=== PATIENT | male | born 1980 | race Caucasian/White ===

== ENCOUNTER → 2018-01-09 09:29 | Outpatient (CLI) | payer OTHER, SELFPAY ==
[2018-01-09 10:34] LABS: Absolute Lymphocyte Count 1.04 X10^3/ul (0.83-4.51); Absolute Neutrophil Count 3.4 X10^3/uL (2.0-7.7); Basophil# 0.02 X10^3/uL; Basophil% 0.4 % (0-1); Eosinophil# 0.07 X10^3/uL; Eosinophils% 1.5 % (0-5); Hematocrit 45.5 % (40-54); Hemoglobin 15.9 g/dl (13.0-16.5); Lymphocyte # 1.04 X10^3/ul (4.0); Lymphocyte % 21.9 % (19-41); Mean Corp Hgb Conc 34.9 g/gl (32-36); Mean Corpuscular Hgb 31.2 pg (27.0-32.0); Mean Corpuscular Volume 89.2 fL (80-94); Monocyte# 0.23 X10^3/uL; Monocyte% 4.9 % (0-10); Neutrophil # 3.37 X10^3/uL (2.7-7.7); Neutrophil % 71.1 % (47-70); Platelet Count 173 K/mm3 (150-450); RBC Distribution Width CV 12.1 % (11.6-14.6); White Blood Count 4.7 K/mm3 (4.4-11.0)
[2018-01-09 10:36] LABS: POSITIVE COUNT NO; POSITIVE DIFFERENTIAL NO; POSITIVE MORPHOLOGY NO
[2018-01-09 11:09] LABS: ALB/GLOB Ratio 1.1 RATIO (0.9-2.4); AST(SGOT) 37 U/L (15-37); Alanine Aminotransfer ALT/SGPT 58 U/L (16-61); Albumin, Serum 4.1 g/dL (3.2-5.0); Alkaline Phosphatase 58 U/L (45-117); Anion Gap 9 (5-15); BUN 14 mg/dL (7-18); BUN/Creat Ratio 13.6 RATIO (10-20); Calcium,Total 8.7 mg/dL (8.5-10.1); Chloride 107 mmol/L (98-107); Cholesterol 214 mg/dL (200); Creatinine, Serum 1.03 mg/dL (0.70-1.30); EST Glomerular Filtration Rate 87 mL/min (>60); Est Glom Filt Rate - Afr Amer 106 mL/min (>60); Globulin 3.6 g/dL (2.2-4.2); Glucose 87 mg/dL (74-106); High Density Lipoprotein 40 mg/dL; Potassium 4.1 mmol/L (3.5-5.1); Protein, Total 7.7 g/dL (6.4-8.2); Sodium Level 141 mmol/L (136-145); Thyroid Stim Hormone (TSH) 0.96 uIU/mL (0.358-3.74); Triglycerides 117 mg/dL; Very Low Density Lipoprotein 23 mg/dL (5-40)
[2018-01-13 12:08] LABS: Testosterone, Free 17.78 (5.00-21.00)
[2018-01-13 12:41] LABS: Testosterone, Total 635 ng/dL (264-916)
== END ==
PROVIDERS: Family Provider Preventive Medicine Occupational Medicine; PCP Preventive Medicine Occupational Medicine; Visit Provider Preventive Medicine Occupational Medicine
DX: R53.83 Other fatigue (principal); Z13.220 Encounter for screening for lipoid disorders; R68.82 Decreased libido
CPT/HCPCS: 36415; 80053; 80061; 84402; 84403; 84443; 85025

== ENCOUNTER 2019-11-18 12:22 | Emergency (ER) | payer OTHER, SELFPAY ==
[2019-11-18 12:23] VITALS: BP 161/96; PULSE 87; RESP 13; TEMP 36.9; O2SAT 96; BMI 30.4
--- NOTE | 2019-11-18 12:31 | RAD_ITS ---
STUDY: X-RAY CHEST REASON FOR EXAM: Male, 39 years old. CHEST PAINS TECHNIQUE: Single AP portable view of the chest. COMPARISON: None. FINDINGS: There is an ill-defined nodule in the left lung base measures approximately 2 cm for which further evaluation by CT scan may be warranted to exclude a neoplasm. There is no demonstrated pleural abnormality. Normal size heart. Normal mediastinum and sally. Normal visualized pulmonary arteries. Normal visualized aortic arch and descending thoracic aorta. Normal visualized thoracic spine. Normal visualized ribs, clavicles, and shoulders. There is no demonstrated abnormality of the visualized soft tissue structures of the upper abdomen. RAD/Chest 1 View (Portable) IMPRESSION: There is an ill-defined nodule in the left lung base measures approximately 2 cm for which further evaluation by CT scan may be warranted to exclude a neoplasm. Electronically Signed: Gagandeep Barfield, at 13:26 EST Tel , Service support ,
--- NOTE | 2019-11-18 12:31 | EKG12_ITS ---
Test Reason : CP Blood Pressure : / mmHG Vent. Rate : 096 BPM Atrial Rate : 096 BPM P-R Int : 124 ms QRS Dur : 092 ms QT Int : 354 ms P-R-T Axes : 041 -01 022 degrees QTc Int : 447 ms Normal sinus rhythm Nonspecific T wave abnormality Abnormal ECG Confirmed by NEERU RENTERIA ([id number]), associate editor SUJATHA ROSE ([id number] on 11/22/2019 2:52:51 PM Referred By: HENRY
--- NOTE | 2019-11-18 12:32 | ED.DCSUM_ITS ---
- ER Visit Summary Date of Service: 11/18/19 Chief Complaint: Chest pain History of Present Illness: The patient is a 39 M who presents with chest pain that has been waxing and waning over the past 2 days. Patient describes it as aching. Patient states pain is over the left chest. Patient admits to some generalized weakness and lightheadedness. Patient admits to some shortness of breath with this. Patient also admits to nausea but denies any vomiting. Patient denies any diaphoresis. Patient denies any cough or fevers. Patient denies any cardiac or PE risk factors. Physical Examination: Vital signs are stable. Patient is afebrile. Patient is in no acute distress. Oral mucosa is pink and moist. Neck is supple. Trachea is midline. There is no JVD noted. Heart was regular rate and rhythm. Lungs are clear and equal bilateral. Abdomen is soft. Bowel sounds are normal. There is no tenderness. There is no guarding noted. Skin is warm dry. Cranial nerves II through XII are intact. There are no focal motor or sensory deficits noted. Extremities are intact. There is no calf tenderness or edema. Test Results: EKG shows AV normal sinus rhythm with a rate of 96. There are no acute ST or T wave changes. There are no prior EKGs available for comparison. CBC, basic metabolic profile, troponin were obtained were all within normal limits. PA and lateral chest x-ray was obtained. There is a left lung nodule noted measuring approximately [address] was recommended for further evaluation. CT scan of the chest was obtained. There is a calcified granuloma measuring 1.9 cm in the left lower lobe. This was interpreted by the radiologist. Emergency Department Course and Treatment: Patient was given aspirin and sublingual nitroglycerin. Patient was feeling better on reevaluation. Patient has a HEART score of 1. Patient was advised that this is low risk for acute cardiac event. Patient was instructed to follow-up with his primary care physician in 5 to 7 days for further evaluation of his chest pain. Patient understood and was agreeable with the plan. All questions were answered. Disposition: Discharge home Impression: Chest pain of uncertain etiology This note was generated with [employer] software. It may contain incorrect words, spelling, and punctuation that were not noted in review of the chart prior to signing ED Disposition - Plan for ED Patient: Disposition: Home or Assisted Living Diagnosis: Chest pain of uncertain etiology Instructions: CHEST PAIN, Uncertain Cause Referrals: Jovan Phillips DO [COURTESY STAFF PHYSICIAN] - 5-7 Days
[2019-11-18 12:35] VITALS: O2SAT 96
--- NOTE | 2019-11-18 12:40 | ED.RN ---
RN INTO ROOM FOR MEDICATIONS. PT REFUSING NITRO AT THIS TIME STATING PAIN IS ONLY 2/3. RN WILL CONTINUE TO MONITOR PATIENT.
[2019-11-18] MEDS: Aspirin 81 MG TAB.CHEW 324 MG PO (12:43)
[2019-11-18 12:46] LABS: Absolute Lymphocyte Count 2.04 X10^3/uL (0.83-4.51); Absolute Neutrophil Count 4.4 X10^3/uL (2.0-7.7); Basophil# 0.05 X10^3/uL; Basophil% 0.7 % (0-1); Eosinophil# 0.24 X10^3/uL; Eosinophils% 3.3 % (0-5); Hematocrit 45.6 % (40-54); Hemoglobin 16.5 g/dL (13.0-16.5); Lymphocyte # 2.04 X10^3/ul (4.0); Lymphocyte % 27.9 % (19-41); Mean Corp Hgb Conc 36.2 g/dL (32-36); Mean Corpuscular Volume 88.5 fL (80-94); Mean Platelet Vol. 10.9 fl (6.2-12.0); Monocyte# 0.55 X10^3/uL; Monocyte% 7.5 % (0-10); NRBC Flagged by Analyzer 0 % (0-5); Neutrophil # 4.38 X10^3/uL (2.7-7.7); Neutrophil % 59.9 % (47-70); Platelet Count 172 K/mm3 (150-450); RBC Distribution Width CV 11.6 % (11.6-14.6); RBC Distribution Width SD 37.4 fl (35.1-43.9); Red Blood Count 5.15 M/mm3 (4.6-6.2); White Blood Count 7.3 K/mm3 (4.4-11.0)
[2019-11-18 13:00] LABS: Anion Gap 7 (5-15); BUN 18 mg/dL (7-18); BUN/Creat Ratio 17.3 RATIO (10-20); Calcium,Total 9.3 mg/dL (8.5-10.1); Chloride 108 mmol/L (98-107); Creatinine, Serum 1.04 mg/dL (0.70-1.30); EST Glomerular Filtration Rate 85 mL/min (>60); Est Glom Filt Rate - Afr Amer 103 mL/min (>60); Estimated Creatinine Clearance 103.58 ml/min; Glucose 93 mg/dL (74-106); Potassium 3.8 mmol/L (3.5-5.1); Sodium Level 142 mmol/L (136-145)
[2019-11-18 13:51] VITALS: BP 138/85; PULSE 85; RESP 16; O2SAT 95
--- NOTE | 2019-11-18 14:00 | CT_ITS ---
STUDY: CT CHEST WITH CONTRAST REASON FOR EXAM: Male, 39 years old. Left-sided chest pain. RADIATION DOSAGE (If Supplied By Facility): CTDIvol = ( 15.96 ) mGy, DLP = ( 629.74 ) mGycm TECHNIQUE: Transaxial imaging was performed following intravenous administration of 100 ml of Isovue-300 contrast material. Coronal and sagittal reformatted images were created. Individualized dose optimization techniques were used for this CT. COMPARISON: None FINDINGS: There are no pulmonary infiltrates or pleural effusions. There is a 1.9 cm calcified granuloma in the left lower lobe. There are no additional pulmonary nodules. There is no pneumothorax. The heart and pericardium are within normal limits. There is no thoracic lymphadenopathy. There is no evidence of thoracic aortic aneurysm. Images through the upper abdomen demonstrate no significant abnormality. There are no destructive osseous lesions. CT/Chest WITH Contrast IMPRESSION: 1.9 cm calcified granuloma in the left lower lobe. Otherwise, unremarkable contrast-enhanced CT of the chest. Electronically Signed: Cam Curran, at 14:33 EST Tel , Service support ,
[2019-11-18 14:24] VITALS: BP 157/85; PULSE 84; RESP 17; O2SAT 96
[2019-11-18 15:12] VITALS: BP 153/87; PULSE 87; RESP 15; O2SAT 97
[2019-11-18 15:25] VITALS: BP 153/87; PULSE 82; RESP 14; O2SAT 96
--- NOTE | 2019-11-18 15:26 | ED.RN ---
IV DC'ED, CATHETER INTACT, SMALL GAUZE DRESSING PLACED. DISCHARGE INSTRUCTIONS GIVEN TO AND REVIEWED WITH PATIENT, PATIENT DENIES QUESTIONS OR CONCERNS AND VOICES UNDERSTANDING OF DISCHARGE INSTRUCTIONS. PT AMBULATES OUT OF ROOM WITHOUT DIFFICULTY.
== END 2019-11-18 15:27 | disposition home or self-care (01) ==
PROVIDERS: Emergency Provider Emergency Medicine; Family Provider Internal Medicine; PCP Internal Medicine
DX: R07.9 Chest pain, unspecified (principal)
CPT/HCPCS: 71045; 71260; 80048; 84484; 85025; 93005; 99285; Q9967; A4216

== ENCOUNTER → 2025-11-20 | Outpatient (CLI) | payer OTHER, SELFPAY ==
--- NOTE | 2025-11-20 07:20 | RAD_ITS ---
PROCEDURE: ELBOW MIN 3 VIEWS 11/20/2025 REASON FOR EXAM: Medial pain distal of elbow. S/p feeling pop when lifting cement block 6 days ago. TECHNIQUE: Procedure Code: RAD[place] Modality: DX Procedure: ELBOW MIN 3 VIEWS Laterality: Left COMPARISON: None. FINDINGS: BONES: No acute fracture or focal osseous lesion. JOINTS: No dislocation. The joint spaces are normal. No elbow joint effusion. SOFT TISSUES: The soft tissues are unremarkable. RAD/Elbow min 3 Views IMPRESSION: NO ACUTE FRACTURE OR DISLOCATION. Reading Location: [id number]
--- OUTSIDE RECORDS SUMMARY | 2025-11-20 07:20 | XMS RPT_ITS | CCD ---
Author Organization [facility] Care Team Providers Care Hris Manager Name Role Phone Lesli Weber MD Primary Care Provider [phone] Hao Washington DO Primary Care Provider Hao Washington DO Primary Care Provider Lesli Weber MD Primary Care Provider Antony HIGH RIGGER.Michelle VILLALOBOS Unavailable Kt HIGH RIGGER.April VILLALOBOS Unavailable [phone] ALLEGRA BLACKMAN Attending Unavailable HAO WASHINGTON Referring Unavailable HAO WASHINGTON Primary Care Unavailable MICHELLE ANTONY Referring UnavailHAO Bell Primary Care Unavailable MICHELLE ANTONY Attending Unavailabl e SELF Referring Unavailable HAO WASHINGTON Primary Care Unavailable ARMANDO GORDILLO Attending Unavailable HAO WASHINGTON Primary Care Unavailable ALLEGRA BLACKMAN Referring Unavailable HAO WASHINGTON Primary Care Unavailable Eloisa HIGH RIGGER.Cammie VILLALOBOS Unavailable Allergies Allergy Classification Reported Allergen(s) Allergy Type Date of Onset Reaction(s) Facility (20 sources) SUMAtriptan; Translations: [SUMATRIPTAN] Drug Allergy 01-23-2022 Myalgia [facility] Work Phone: Medications Current Medications Medication Drug Class(es) Dates Sig (Normalized) Sig (Original) buPROPion hydrochloride 75 mg oral tablet (20 sources) Aminoketone Start: 10-10-2024 End: 01-11-2026 take 1 tablet by mouth once daily buPROPion (WELLBUTRIN) 75 mg tablet Indications: LISBETH (generalized anxiety disorder) Take 1 tablet by mouth once daily. 90 tablet 3 01/16/2025 01/11/2026 Active Start: 12-07-2023 End: 10-10-2024 take 1 tablet by mouth once daily buPROPion SR (WELLBUTRIN SR) 150 mg 12 hr tablet Indications: LISBETH (generalized anxiety disorder) Take 1 tablet by mouth once daily. 90 tablet 3 06/21/2024 10/10/2024 Discontinued Start: 01-23-2022 End: 07-13-2023 take 1 tablet by mouth twice daily buPROPion SR (WELLBUTRIN SR) 150 mg 12 hr tablet Indications: LISBETH (generalized anxiety disorder) Take 1 tablet by mouth twice daily. 60 tablet 2 07/13/2023 Active Start: 05-16-2021 End: 11-13-2021 take 31-31.9 tablets by mouth twice daily buPROPion SR (WELLBUTRIN SR) 150 mg 12 hr tablet Indications: Class 1 obesity due to excess calories without serious comorbidity with body mass index (BMI) of 31.0 to 31.9 in adult , LISBETH (generalized anxiety disorder) Take 1 tablet by mouth twice daily. 60 tablet 1 09/09/2021 11/13/2021 Discontinued Comment on above: Take 1 tablet by tatiana th twice daily. Take 1 tablet by tatiana th once daily. esomeprazole 20 mg delayed release oral capsule (20 sources) Proton Pump Inhibitor Start: 12-07-19 End: 01-16-20 take 1 capsule by mouth once daily before breakfast esomeprazole (NEXIUM) 20 mg capsule Indications: Gastroesophageal reflux disease with esophagitis, unspecified whether hemorrhage Take 1 capsule by mouth daily before breakfast. 1/2 hr before meal. 90 capsule 1 01/16/2025 Active Start: 04-17-2023 End: 08-28-2023 take 1 capsule by mouth once daily before breakfast esomeprazole (NEXIUM) 20 mg capsule Take 1 capsule by mouth daily before breakfast. 1/2 hr before meal. 90 capsule 1 08/28/2023 Active Start: 10-15-2022 take 1 capsule by mo uth once daily before breakfast esomeprazole (NEXIUM) 20 mg capsule Take 1 capsule by mouth daily before breakfast. 1/2 hr before meal. 90 capsule 1 10/15/2022 Active Start: 05-16-2021 End: 10-12-2022 take 1 capsule by mouth once daily before breakfast esomeprazole (NEXIUM) 20 mg capsule Take 1 capsule by mouth daily before breakfast. 1/2 hr before meal. 90 capsule 2 05/16/2021 01/23/2022 Discontinued Comment on above: Take 1 capsule by mo uth daily before breakfast. 1/2 hr before meal. FLUoxetine 10 mg oral capsule (20 sources) Serotonin Reuptake Inhibitor Start: 10-10-2024 End: 01-11-2026 take 1 capsule by mouth once daily FLUoxetine (PROZAC) 10 mg capsule Indications: LISBETH (generalized anxiety disorder) Take 1 capsule by mouth once daily. 90 capsule 3 01/16/2025 01/11/2026 Active Start: 11-27-2023 End: 10-10-2024 take 1 capsule by mouth once daily FLUoxetine (PROZAC) 20 mg capsule Indications: LISBETH (generalized anxiety disorder) One pill by mouth daily. 90 capsule 1 05/03/2024 10/10/2024 Discontinued Start: 10-15-2022 End: 06-11-2023 take 1 capsule by mouth once daily FLUoxetine (PROZAC) 20 mg capsule Indications: LISBETH (generalized anxiety disorder) One pill by mouth daily. 90 capsule 1 06/11/2023 Active Start: 04-15-2022 End: 10-12-2022 take 1 capsule by mouth once daily FLUoxetine (PROZAC) 20 mg capsule Indications: LISBETH (generalized anxiety disorder) One pill by mouth daily. 90 capsule 1 04/15/2022 10/12/2022 Discontinued Start: 01-23-2022 End: 02-21-2022 take 1 capsule by mouth once daily FLUoxetine (PROZAC) 20 mg capsule Indications: LISBETH (generalized anxiety disorder) One pill by mouth daily. 30 capsule 1 01/23/2022 02/21/2022 Discontinued (Clinical Decision) Start: 09-09-2021 End: 11-27-2021 take 1 capsule by mouth once daily FLUoxetine (PROZAC) 10 mg capsule Indications: LISBETH (generalized anxiety disorder) One pill by mouth daily. 90 capsule 09/09/2021 11/27/2021 Discontinued Start: 10-29-2020 End: 07-02-2021 take 1 capsule by mouth once daily FLUoxetine (PROZAC) 10 mg capsule Indications: LISBETH (generalized anxiety disorder) One pill by mouth daily. 90 capsule 3 10/29/2020 07/02/2021 Discontinued Comment on above: One pill by mouth [facility] gabapentin 300 mg oral capsule (9 sources) Anti-epileptic Agent Start: 09-14-2024 End: 01-16-2025 take 1 capsule by mouth every twelve hours as needed gabapentin (NEURONTIN) 300 mg capsule Take 1 capsule by mouth two times a day as needed (migraine) for up to 30 days. 14 capsule 09/14/2024 01/16/2025 Discontinued (Patient chooses alternative therapy) Start: 08-23-2024 End: 09-22-2024 take 1 capsule by mouth every twelve hours as needed gabapentin (NEURONTIN) 100 mg capsule Take 1 capsule by mouth two times a day as needed (migraine) for up to 30 days. 14 capsule 08/23/2024 09/13/2024 Discontinued montelukast 10 mg oral tablet (20 sources) Leukotriene Receptor Antagonist Start: 09-05-2024 End: 01-16-2025 take 1 tablet by mouth once daily at bedtime montelukast (SINGULAIR) 10 mg tablet Take 1 tablet by mouth daily at bedtime. 90 tablet 1 01/16/2025 Active Start: 02-11-2024 End: 09-03-2024 take 1 tablet by mouth once daily at bedtime montelukast (SINGULAIR) 10 mg tablet Take 1 tablet by mouth daily at bedtime. 90 tablet 1 02/11/2024 09/03/2024 Discontinued Start: 10-15-2022 take 1 tablet by tatiana th once daily at bedtime montelukast (SINGULAIR) 10 mg tablet Take 1 tablet by mouth daily at bedtime. 90 tablet 1 10/15/2022 Active Start: 01-23-2022 End: 06-29-2022 take 1 tablet by mouth once daily at bedtime montelukast (SINGULAIR) 10 mg tablet Take 1 tablet by mouth daily at bedtime. 30 tablet 5 04/30/2022 Active Start: 10-25-2021 End: 11-27-2021 take 1 tablet by mouth once daily at bedtime montelukast (SINGULAIR) 10 mg tablet Indications: Cough Take 1 tablet by mouth daily at bedtime. 30 tablet 1 10/25/2021 11/27/2021 Discontinued Comment on above: Take 1 tablet by tatiana th daily at bedtime. tirzepatide (MOUNJARO) 5 mg/0.5 mL pen injector (9 sources) Start: 03-04-20 End: 04-03-20 inject 5 mg by subcutaneous injection every week tirzepatide (MOUNJARO) 5 mg/0.5 mL pen injector Inject 5 mg subcutaneously one time a week. 2 mL 1 03/04/2023 04/03/2023 Active Start: 12-10-2022 End: 03-04-2023 inject 5 mg by subcutaneous injection every week tirzepatide (MOUNJARO) 5 mg/0.5 mL pen injector Inject 5 mg subcutaneously one time a week. 2 mL 1 12/10/2022 03/04/2023 Discontinued Start: 12-10-2022 End: 01-09-2023 inject 5 mg by subcutaneous injection every week tirzepatide (MOUNJARO) 5 mg/0.5 mL pen injector Inject 5 mg subcutaneously one time a week. 2 mL 1 12/10/2022 01/09/2023 Active Comment on above: Inject 5 mg subcutan eously one time a week. tiZANidine 2 mg oral tablet (10 sources) Central alpha-2 Adrenergic Agonist Start: 08-23-20 End: 01-16-20 take 1 tablet by mouth every twenty-four hours as needed tiZANidine (ZANAFLEX) 2 mg tablet Take 1 tablet by mouth at bedtime as needed. 14 tablet 08/23/2024 01/16/2025 Discontinued topiramate 50 mg oral tablet (20 sources) Start: 07-18-20 End: 10-16-20 take 2 tablets by mouth once daily topiramate (TOPAMAX) 50 mg tablet Indications: Migraine headaches Take 2 tablets by mouth once daily 60 tablet 07/18/2025 10/16/2025 Active Start: 01-16-2025 End: 06-28-2025 take 2 tablets by mouth once daily topiramate (TOPAMAX) 50 mg tablet Indications: Migraine headaches Take 2 tablets by mouth once daily. 60 tablet 2 03/30/2025 06/28/2025 Active Start: 12-16-2024 End: 03-16-2025 take 2 tablets by mouth once daily topiramate (TOPAMAX) 25 mg tablet Take 2 tablets by mouth once daily. 60 tablet 2 12/16/2024 01/16/2025 Discontinued Start: 12-12-2024 End: 12-16-2024 take 3 tablets by mouth once daily topiramate (TOPAMAX) 25 mg tablet Take 3 tablets by mouth once daily. 90 tablet 2 12/12/2024 12/16/2024 Discontinued Start: 08-23-2024 End: 11-21-2024 take 2 tablets by mouth once daily at bedtime topiramate (TOPAMAX) 25 mg tablet TAKE 2 TABLETS BY MOUTH ONCE DAILY AT BEDTIME 60 tablet 11/14/2024 Active Start: 02-17-2022 End: 11-12-2022 take 1 tablet by mouth twice daily topiramate (TOPAMAX) 25 mg tablet Take 1 tablet by mouth twice daily. 60 tablet 1 02/17/2022 11/12/2022 Discontinued Comment on above: Take 1 tablet by [facility] twice daily. Completed/Discontinued Medications Medication Drug Class(es) Dates Sig (Normalized) Sig (Original) cetirizine hydrochloride 10 mg oral tablet (2 sources) Histamine-1 Receptor Antagonist Start: 04-23-2020 End: 10-25-2021 take 1 tablet by mouth once daily cetirizine (ZYRTEC) 10 mg tablet Take 1 tablet by mouth once daily. 04/23/2020 10/25/2021 Discontinued (Course of therapy completed) cholecalciferol 0.05 mg oral capsule (20 sources) Vitamin D Start: 11-24-2019 End: 12-07-2023 take 1 capsule by mouth once daily Cholecalciferol, Vitamin D3, 50 mcg (2,000 unit) cap Indications: Vitamin D deficiency Take 1 capsule by mouth once daily. 30 capsule 5 11/24/2019 12/07/2023 Discontinued Comment on above: Take 1 capsule by mo [facility] once daily. fluticasone propionate 0.05 mg/actuat metered dose nasal spray (20 sources) Corticosteroid Start: 11-24-2019 End: 12-07-2023 take 2 spray(s) by mouth once daily fluticasone (FLONASE) 50 mcg/actuation nasal spray Indications: Dizziness Use 2 Sprays in each nostril once daily. Rinse mouth after use. 1 Bottle 3 11/24/2019 12/07/2023 Discontinued Comment on above: Use 2 Sprays in each nostril once daily. Rinse mouth after use. iv contrast (will be provided with radiology test) (1 source) Start: 11-08-2021 End: 11-09-2021 iv contrast (will be provided with radiology test) CT Chest W -Inject, intravenously, once for 1 dose.No IV access, insert saline lock prior to the beginning of sedation, infusion, injection of imaging exam. Discontinue saline lock post exam. If Pt. has a central line or IVAD, may access for administration according to line specific nursing protocol. Once exam is complete flush line and de-access according to line specific nursing protocol in the CT contrast administration guidelines link. 1 Each 0 11/08/2021 11/09/2021 Comment on above: CT Chest W -Inject, intravenously, once for 1 dose.No IV access, insert saline lock prior to the beginning of sedation, infusion, injection of imaging exam. Discontinue saline lock post exam. If Pt. has a central line or IVAD, may access for administration according to line specific nursing protocol. Once exam is complete flush line and de-access according to line specific nursing protocol in the CT contrast administration guidelines link. predniSONE 10 mg oral tablet (1 source) Start: 06-24-2021 End: 07-03-2021 predniSONE (DELTASONE) 10 mg tablet Take 4 tabs daily for 3 days, then 2 tabs daily for 3 days, then 1 tab daily for 3 days with food. 21 tablet 06/24/2021 07/03/2021 propranolol hydrochloride 60 mg oral tablet (15 sources) beta-Adrenergic Ellie Start: 01-10-2022 End: 11-12-2022 take 1 tablet by mouth once daily propranolol (INDERAL) 60 mg tablet Indications: Headaches Take 1 tablet by mouth once daily. 30 tablet 3 01/10/2022 11/12/2022 Discontinued Start: 10-25-2021 End: 01-06-2022 take 1 tablet by mouth once daily propranolol (INDERAL) 20 mg tablet Indications: Headaches Take 1 tablet by mouth once daily. Take one 20 mg tablet with 40 mg tablet to equal 60 mg daily 30 tablet 1 10/25/2021 01/06/2022 Discontinued Comment on above: Take 1 tablet by tatiana th once daily. Take 1 tablet by tatiana th once daily. Take one 20 mg tablet with 40 mg tablet to equal 60 mg daily SUMAtriptan 50 mg oral tablet (1 source) Serotonin-1b and Serotonin-1d Receptor Agonist Start: 09-24-20 End: 01-24-20 SUMAtriptan (IMITREX) 50 mg tablet Indications: Headaches Take on tablet at onset of headache. May repeat in 2 hours if needed once 27 tablet 1 09/24/2021 01/23/2022 Discontinued (Adverse Reaction) Comment on above: Take on tablet at on set of headache. May repeat in 2 hours if needed once tirzepatide (MOUNJARO) 2.5 mg/0.5 mL pen injector (2 sources) Start: 11-13-20 End: 11-26-19 inject 2.5 mg by subcutaneous injection every week tirzepatide (MOUNJARO) 2.5 mg/0.5 mL pen injector Inject 2.5 mg subcutaneously one time a week. 2 mL 1 11/13/2022 11/26/2022 Discontinued Start: 11-13-2022 End: 12-13-2022 inject 2.5 mg by subcutaneous injection every week tirzepatide (MOUNJARO) 2.5 mg/0.5 mL pen injector Inject 2.5 mg subcutaneously one time a week. 2 mL 1 11/13/2022 12/13/2022 Active Comment on above: Inject 2.5 mg subcut aneously one time a week. tirzepatide (MOUNJARO) 2.5 mg/0.5 mL pen injector (4 sources) Start: inject 2.5 mg by subcutaneous injection every week tirzepatide (MOUNJARO) 2.5 mg/0.5 mL pen injector Inject 2.5 mg subcutaneously one time a week. 2 mL 2 12/24/2022 Active Start: 12-24-2022 End: 01-23-2023 inject 2.5 mg by subcutaneous injection every week tirzepatide (MOUNJARO) 2.5 mg/0.5 mL pen injector Inject 2.5 mg subcutaneously one time a week. 2 mL 2 12/24/2022 01/23/2023 Active Comment on above: Inject 2.5 mg subcut aneously one time a week. ubrogepant 50 mg oral tablet (14 sources) Start: 02-18-20 End: 11-12-20 ubrogepant (UBRELVY) 50 mg tablet Take 1 tablet by mouth as needed. Take 1 tablet as needed for migraine. Can repeat in 2 hours if no relief. 8 tablet 1 02/17/2022 11/12/2022 Discontinued Comment on above: Take 1 tablet by tatiana as needed. Take 1 tablet as needed for migraine. Can repeat in 2 hours if no relief. 24 hr venlafaxine 37.5 mg extended release oral capsule (13 sources) Serotonin and Norepinephrine Reuptake Inhibitor Start: 02-22-20 End: 10-15-20 take 1 capsule by mouth once daily venlafaxine ER (EFFEXOR XR) 37.5 mg 24 hr capsule Take 1 capsule by mouth once daily. 30 capsule 5 03/07/2022 10/15/2022 Discontinued (Discontinued by Patient) Comment on above: Take 1 capsule by mo [facility] once daily. Problems Active Problems Problem Classification Problem Date Documented Date Episodic/Chronic Anxiety disorders (20 sources) Generalized anxiety disorder; Translations: [Generalized anxiety disorder] Onset: 04-23-2020 04-23-2020 Chronic Disorders of lipid metabolism (2 sources) Hyperlipidemia; Translations: [Hyperlipidemia, unspecified] Onset: 01-16-2025 01-16-2025 Chronic Esophageal disorders (20 sources) Gastroesophageal reflux disease; Translations: [Gastro-esophageal reflux disease without esophagitis] Onset: 10-16-2009 07-04-2014 Chronic Esophageal disorders (1 source) Esophageal disorders; Translations: [Gastroesophageal reflux disease with esophagitis, unspecified whether hemorrhage] Onset: 07-04-2014 Headache; including migraine (6 sources) Migraine; Translations: [Migraine, unspecified, not intractable, without status migrainosus] Onset: 08-23-2024 08-05-2024 Chronic Headache; including migraine (1 source) Headache; Translations: [Headaches] Episodic Immunizations and screening for infectious disease (2 sources) Suspected disease caused by 2019-nCoV; Translations: [Suspected COVID-19 virus infection] 09-10-2021 Episodic Other circulatory disease (1 source) Elevated blood-pressure reading without diagnosis of hypertension; Translations: [Elevated blood-pressure reading, without diagnosis of hypertension] Episodic Other ear and sense organ disorders (1 source) Impacted cerumen in right ear; Translations: [Impacted cerumen, right ear] Episodic Other lower respiratory disease (20 sources) Calcified granuloma of lung; Translations: [Pulmonary fibrosis, unspecified] Onset: 11-22-2019 11-22-2019 Chronic Other lower respiratory disease (1 source) Multiple nodules of lung; Translations: [Other nonspecific abnormal finding of lung field] Episodic Other non-traumatic joint disorders (1 source) Pain in elbow; Translations: [Pain in right elbow] 06-24-2021 Episodic Other nutritional; endocrine; and metabolic disorders (1 source) Weight loss; Translations: [Abnormal weight loss] Episodic Residual codes; unclassified (1 source) Obstructive sleep apnea syndrome; Translations: [Obstructive sleep apnea (adult) (pediatric)] 09-26-2024 Chronic Screening and history of mental health and substance abuse codes (1 source) Patient encounter status; Translations: [Encounter for screening for depression] 01-16-2025 Episodic Past or Other Problems Problem Classification Problem Date Documented Da te Episodic/Chronic Malaise and fatigue (3 sources) Fatigue; Translations: [Other fatigue] Onset: 09-12-2024 Episodic Other connective tissue disease (20 sources) Ganglion of wrist; Translations: [Ganglion, unspecified wrist] Onset: 07-04-2014 11-18-2021 Episodic Other lower respiratory disease (20 sources) Cough; Translations: [Cough] Onset: 10-16-2009 10-16-2009 Episodic Other lower respiratory disease (15 sources) Calcified granuloma of lung; Translations: [Other disorders of lung] Onset: 11-22-2019 11-22-2019 Episodic Results Test Name Value Interpretation Reference Range Facility CBC W Auto Differential pane l (Bld)on 01-16-2025 Basophils (Bld) [#/Vol] 0.05 10*3/uL Normal <0.11 [facility] Comment on above: Order Comment: Speci men Type: BLOOD SPECIMEN Ordering Facility: [facility] Address: [address] [place] [address] Performed By: #### 5 7021-8 #### [facility] CLIA [id number] [address] [place] [address] [place] Basophils/100 WBC (Bld) 0.8 % Normal [facility] Comment on above: Order Comment: Speci men Type: BLOOD SPECIMEN Ordering Facility: [facility] Address: [address] [place] [address] Performed By: #### 5 7021-8 #### [facility] CLIA [id number] [address] [place] [address] [place] Differential cell count method Nom (Bld) Auto Normal [facility] Comment on above: Order Comment: Speci men Type: BLOOD SPECIMEN Ordering Facility: [facility] Address: [address] [place] [address] Performed By: #### 5 7021-8 #### [facility] CLIA [id number] [address] [place] [address] [place] Eosinophils (Bld) [#/Vol] 0.23 10*3/uL Normal <0.46 [facility] Comment on above: Order Comment: Speci men Type: BLOOD SPECIMEN Ordering Facility: [facility] Address: [address] [place] [address] Performed By: #### 5 7021-8 #### [facility] CLIA [id number] [address] [place] [address] [place] Eosinophils/100 WBC (Bld) 3.5 % Normal [facility] Comment on above: Order Comment: Speci men Type: BLOOD SPECIMEN Ordering Facility: [facility] Address: [address] [place] [address] Performed By: #### 5 7021-8 #### [facility] CLIA [id number] [address] [place] [address] [place] Erythrocyte distribution width (RBC) [Ratio] 12.1 % Normal 11.5-15.0 [facility] Comment on above: Order Comment: Speci men Type: BLOOD SPECIMEN Ordering Facility: [facility] Address: [address] [place] [address] Performed By: #### 5 7021-8 #### [facility] CLIA [id number] [address] [place] [address] [place] Hematocrit (Bld) [Volume fraction] 46.0 % Normal 39.0-51.0 [facility] Comment on above: Order Comment: Speci men Type: BLOOD SPECIMEN Ordering Facility: [facility] Address: [address] [place] [address] Performed By: #### 5 7021-8 #### [facility] CLIA [id number] [address] [place] [address] [place] Hemoglobin (Bld) [Mass/Vol] 16.0 g/dL Normal 13.0-17.0 [facility] Comment on above: Order Comment: Speci men Type: BLOOD SPECIMEN Ordering Facility: [facility] Address: [address] [place] [address] Performed By: #### 5 7021-8 #### [facility] CLIA [id number] [address] [place] [address] [place] Immature granulocytes (Bld) [#/Vol] 0.04 10*3/uL Normal <0.10 [facility] Comment on above: Order Comment: Speci men Type: BLOOD SPECIMEN Ordering Facility: [facility] Address: [address] [place] [address] Performed By: #### 5 7021-8 #### [facility] CLIA [id number] [address] [place] [address] [place] Immature granulocytes/100 WBC (Bld) 0.6 % Normal [facility] Comment on above: Order Comment: Speci men Type: BLOOD SPECIMEN Ordering Facility: [facility] Address: [address] [place] [address] Performed By: #### 5 7021-8 #### [facility] CLIA [id number] [address] [place] [address] [place] Lymphocytes (Bld) [#/Vol] 2.12 10*3/uL Normal 1.00-4.00 [facility] Comment on above: Order Comment: Speci men Type: BLOOD SPECIMEN Ordering Facility: [facility] Address: [address] [place] [address] Performed By: #### 5 7021-8 #### [facility] CLIA [id number] [address] [place] [address] [place] Lymphocytes/100 WBC (Bld) 32.1 % Normal [facility] Comment on above: Order Comment: Speci men Type: BLOOD SPECIMEN Ordering Facility: [facility] Address: [address] [place] [address] Performed By: #### 5 7021-8 #### [facility] CLIA [id number] [address] [place] [address] [place] MCH (RBC) [Entitic mass] 31.4 pg Normal 26.0-34.0 [facility] Comment on above: Order Comment: Speci men Type: BLOOD SPECIMEN Ordering Facility: [facility] Address: [address] [place] [address] Performed By: #### 5 7021-8 #### [facility] CLIA [id number] [address] [place] [address] [place] MCHC (RBC) [Mass/Vol] 34.8 g/dL Normal 30.5-36.0 [facility] Comment on above: Order Comment: Speci men Type: BLOOD SPECIMEN Ordering Facility: [facility] Address: [address] [place] [address] Performed By: #### 5 7021-8 #### [facility] CLIA [id number] [address] [place] [address] [place] MCV (RBC) [Entitic vol] 90.4 fL Normal 80.0-100.0 [facility] Comment on above: Order Comment: Speci men Type: BLOOD SPECIMEN Ordering Facility: [facility] Address: [address] [place] [address] Performed By: #### 5 7021-8 #### [facility] CLIA [id number] [address] [place] [address] [place] Monocytes (Bld) [#/Vol] 0.65 10*3/uL Normal <0.87 [facility] Comment on above: Order Comment: Speci men Type: BLOOD SPECIMEN Ordering Facility: [facility] Address: [address] [place] [address] Performed By: #### 5 7021-8 #### [facility] CLIA [id number] [address] [place] [address] [place] Monocytes/100 WBC (Bld) 9.8 % Normal [facility] Comment on above: Order Comment: Speci men Type: BLOOD SPECIMEN Ordering Facility: [facility] Address: [address] [place] [address] Performed By: #### 5 7021-8 #### [facility] CLIA [id number] [address] [place] [address] [place] Neutrophils (Bld) [#/Vol] 3.51 10*3/uL Normal 1.45-7.50 [facility] Comment on above: Order Comment: Speci men Type: BLOOD SPECIMEN Ordering Facility: [facility] Address: [address] [place] [address] Performed By: #### 5 7021-8 #### [facility] CLIA [id number] [address] [place] [address] [place] Neutrophils/100 WBC (Bld) 53.2 % Normal [facility] Comment on above: Order Comment: Speci men Type: BLOOD SPECIMEN Ordering Facility: [facility] Address: [address] [place] [address] Performed By: #### 5 7021-8 #### [facility] CLIA [id number] [address] [place] [address] [place] Nucleated RBC (Bld) [#/Vol] 10*3/uL Normal <0.01 [facility] Comment on above: Order Comment: Speci men Type: BLOOD SPECIMEN Ordering Facility: [facility] Address: [address] [place] [address] Performed By: #### 5 7021-8 #### [facility] CLIA [id number] [address] [place] [address] [place] Nucleated RBC/100 WBC (Bld) [Ratio] 0.0 /100 WBC Normal [facility] Comment on above: Order Comment: Speci men Type: BLOOD SPECIMEN Ordering Facility: [facility] Address: [address] [place] [address] Performed By: #### 5 7021-8 #### [facility] CLIA [id number] [address] [place] [address] [place] Platelet mean volume (Bld) [Entitic vol] 11.3 fL Normal 9.0-12.7 [facility] Comment on above: Order Comment: Speci men Type: BLOOD SPECIMEN Ordering Facility: [facility] Address: [address] [place] [address] Performed By: #### 5 7021-8 #### [facility] CLIA [id number] [address] [place] [address] [place] Platelets (Bld) [#/Vol] 211 10*3/uL Normal 150-400 [facility] Comment on above: Order Comment: Speci men Type: BLOOD SPECIMEN Ordering Facility: [facility] Address: [address] [place] [address] Performed By: #### 5 7021-8 #### [facility] CLIA [id number] [address] [place] [address] [place] RBC (Bld) [#/Vol] 5.09 10*6/uL Normal 4.20-6.00 [facility] Comment on above: Order Comment: Speci men Type: BLOOD SPECIMEN Ordering Facility: [facility] Address: [address] [place] [address] Performed By: #### 5 7021-8 #### [facility] CLIA [id number] [address] [place] [address] [place] WBC (Bld) [#/Vol] 6.60 10*3/uL Normal 3.70-11.00 [facility] Comment on above: Order Comment: Speci men Type: BLOOD SPECIMEN Ordering Facility: [facility] Address: [address] [place] [address] Performed By: #### 5 7021-8 #### [facility] CLIA [id number] [address] [place] [address] [place] CNOVon 01-16-2025 [facility] KVNG MADSEN ([id number]) 1980 M Date Time Provider Department 01/16/25 8:00 AM [facility] During your visit today, we recorded the following information about you: Pulse Respiration Blood pressure Weight 89/minute 14/minute 100/62 78.9 kg Height 1.74 m Michelle Antony APRN.EVENT MANAGER 01/16/2025 8:28 AM Signed Chief Complaint Patient presents with: Physical HPI Kvng Madsen is a 44 year old male who presents here today for Above Complaints. Antwan is an established patient of Dr. Felix DO. Concerns today... Routine physical exam. No concerns or complaints today. Mood/ LISBETH -- Prescribed Prozac 10 mg daily and wellbutrin 75 mg daily. Stable and well controlled on this regimen. Does not want any changes. Migraines -- Went from daily headaches to now once per week on average since starting topamax. Does report recently he has been getting headaches about 2x per week. Wondering if muscle fatigue is a common side effect with topamax. Pt reports some mild muscle fatigue and reports symptoms are worse when he takes higher dose of topamax and but less when he takes lower dose. He goes between taking 2/3 tablets recently d/t the increase in frequency of headaches (50-75 mg). No other new neuro symptoms. GERD -- stable on Nexium. Allergies -- stable on Singulair. HM -- up to date. Past medical history, appointments, medications, allergies reviewed. Previous Medical History PAST MEDICAL HISTORY Diagnosis Date NONE Previous Surgical History PAST SURGICAL HISTORY Procedure Laterality Date NONE Family History FAMILY HISTORY Problem Relation Age of Onset Cancer Paternal Grandfather stomach cancer Breast Cancer Other great aunt Patient Allergies ALLERGIES Allergen Reactions Imitrex [Sumatripta* Myalgia Current Medications Current Outpatient Medications on File Prior to Visit Medication Sig topiramate (TOPAMAX) 25 mg tablet Take 2 tablets by mouth once daily. esomeprazole (NEXIUM) 20 mg capsule Take 1 capsule by mouth daily before breakfast. 1/2 hr before meal. FLUoxetine (PROZAC) 10 mg capsule Take 1 capsule by mouth once daily. buPROPion (WELLBUTRIN) 75 mg tablet Take 1 tablet by mouth once daily. gabapentin (NEURONTIN) 300 mg capsule Take 1 capsule by mouth two times a day as needed (migraine) for up to 30 days. montelukast (SINGULAIR) 10 mg tablet Take 1 tablet by mouth daily at bedtime. tiZANidine (ZANAFLEX) 2 mg tablet Take 1 tablet by mouth at bedtime as needed. No current facility-administered medications on file prior to visit. Social History Social History Tobacco Use Smoking status: Never Smokeless tobacco: Former Quit date: 12/24/2011 Substance Use Topics Alcohol use: Yes Drug use: No REVIEW OF SYSTEMS: as above Reviewed relevant PMHx, PSHx, Social Hx, current medications and allergies. Review of Symptoms REVIEW OF SYSTEMS See HPI. EXAM: BP 100/62 (BP Site: Left Arm, BP Position: Sitting, BP Cuff Size: Regular Adult) Pulse 89 Resp 14 Ht 174 cm (5' 8.5) Wt 78.9 kg (174 lb) SpO2 95% BMI 26.07 kg/m? General Appearance: Well appearing, alert, in no acute distress, well-hydrated, well nourished.. Skin: Skin color, texture, turgor normal, no suspicious rashes or lesions. Head: Normocephalic, no masses, lesions, tenderness or abnormalities. Oropharynx: Lips, mucosa, and tongue normal, teeth and gums normal, oropharynx normal. Neck: Supple, no adenopathy; thyroid symmetric, normal size, no bruits. Back:no pain to palpation of vertebrae, good flexion and extension, good range of motion, no muscle tenderness, reflexes are 2+ and symmetric, motor and sensory appear to be normal, negative SLR test, no evidence of scoliosis Lungs: Lungs clear to auscultation. No wheezing, rhonchi, rales.. Heart: RRR without murmur, gallop, or rubs. No ectopy. Abdomen: Normal abdominal exam, Abdomen soft, non-tender. Bowel sounds normal. No masses, organomegaly. Neurologic: Gait normal. Reflexes normal and symmetric. Sensation grossly intact.. Health Maintenance List Depression Screening Never done Hepatitis B Vaccine(1 of 3 - 19+ 3-dose series) Never done Influenza Vaccine(1) due on 05/22/2025 DTaP,Tdap,Td Vaccine(2 - Tdap) due on 01/16/2026 Covid-19 Vaccine(1 - 2023- season) due on 01/16/2026 Lipid Screening due on 12/07/2028 Hepatitis C Screening Discontinued HIV Screening Discontinued ASSESSMENT/PLAN: 1. Encounter for wellness examination in adult - ICD9: V70.0, ICD10: Z00.00 (primary diagnosis) - Counseled on healthy diet and regular exercise - Follow up for annual exam in one year - LIPID PANEL BASIC - COMPREHENSIVE METABOLIC PANEL - COMPLETE BLOOD COUNT AND DIFFERENTIAL - HEMOGLOBIN A1C 2. Hyperlipidemia, unspecified hyperlipidemia type - ICD9: 272.4, ICD10: E78.5 (more content not included)... Normal [facility] Comprehensive metabolic 2000 panelon 01-16-2025 Albumin [Mass/Vol] 4.5 g/dL Normal 3.9-4.9 [facility] Comment on above: Order Comment: Speci men Type: BLOOD SPECIMEN Ordering Facility: [facility] Address: [address] [place] [address] Performed By: #### 2 4331-1, 23951-1 #### [facility] CLIA [id number] [address] [place], [place] [address] [place] ALP [Catalytic activity/Vol] 58 U/L Normal 38-113 [facility] Comment on above: Order Comment: Speci men Type: BLOOD SPECIMEN Ordering Facility: [facility] Address: [address] [place] [address] Performed By: #### 2 4331-1, #### [facility] CLIA [id number] [address] [place], [place] [address] [place] ALT [Catalytic activity/Vol] 33 U/L Normal 10-54 [facility] Comment on above: Order Comment: Speci men Type: BLOOD SPECIMEN Ordering Facility: [facility] Address: [address] [place] [address] Performed By: #### 2 4331-, #### [facility] CLIA [id number] [address] [place], [place] [address] [place] Anion gap [Moles/Vol] 11 mmol/L Normal 8-15 [facility] Comment on above: Order Comment: Speci men Type: BLOOD SPECIMEN Ordering Facility: [facility] Address: [address] [place] [address] Performed By: #### 2 4331-1, #### [facility] CLIA [id number] [address] [place], [place] [address] [place] AST [Catalytic activity/Vol] 30 U/L Normal 14-40 [facility] Comment on above: Order Comment: Speci men Type: BLOOD SPECIMEN Ordering Facility: [facility] Address: [address] [place], [place] [address] Performed By: #### 2 4331-1, 77225-6 #### [facility] CLIA [id number] [address] [place], [place] [address] [place] Bilirubin [Mass/Vol] 0.4 mg/dL Normal 0.2-1.3 [facility] Comment on above: Order Comment: Speci men Type: BLOOD SPECIMEN Ordering Facility: [facility] Address: [address] [place] [address] Performed By: #### 2 4331-1, 67022-0 #### [facility] CLIA [id number] [address] [place] [address] [place] Calcium [Mass/Vol] 9.6 mg/dL Normal 8.5-10.2 [facility] Comment on above: Order Comment: Speci men Type: BLOOD SPECIMEN Ordering Facility: [facility] Address: [address] [place] [address] Performed By: #### 2 4331-1, 98358-4 #### [facility] CLIA [id number] [address] [place] [address] [place] Chloride [Moles/Vol] 110 mmol/L High 98-107 [facility] Comment on above: Order Comment: Speci men Type: BLOOD SPECIMEN Ordering Facility: [facility] Address: [address] [place] [address] Performed By: #### 2 4331-1, 46842-7 #### [facility] CLIA [id number] [address] [place] [address] [place] CO2 [Moles/Vol] 21 mmol/L Low 22-30 [facility] Comment on above: Order Comment: Speci men Type: BLOOD SPECIMEN Ordering Facility: [facility] Address: [address] [place] [address] Performed By: #### 2 4331-1, #### [facility] CLIA [id number] [address] [place] [address] [place] Creatinine [Mass/Vol] 1.13 mg/dL Normal 0.73-1.22 [facility] Comment on above: Order Comment: Speci men Type: BLOOD SPECIMEN Ordering Facility: [facility] Address: [address] [place] [address] Performed By: #### 2 4331-1, 08806-6 #### [facility] CLIA [id number] [address] [place] [address] [place] Creatinine and Glomerular filtration rate.predicted panel (S/P/Bld) 83 mL/min/1.73m??? Normal >=60 [facility] Comment on above: Order Comment: Jonah quiroz Type: BLOOD SPECIMEN Ordering Facility: [facility] Address: [address] [place] [address] Result Comment: Brittany mated Glomerular Filtration Rate (eGFR) is calculated using the 2020 CKD-EPI creatinine equation. This equation utilizes serum creatinine, sex, and age as parameters. The creatinine assay has traceable calibration to isotope dilution-mass spectrometry. Refer to KDIGO guidelines for clinical interpretation. In patients with unstable renal function, e.g. those with acute kidney injury, the eGFR may not accurately reflect actual GFR. Performed By: #### 2 4331-1, 91418-8 #### [facility] CLIA [id number] [address] [place] [address] [place] Glucose [Mass/Vol] 80 mg/dL Normal 74-99 [facility] Comment on above: Order Comment: Jonah richie Type: BLOOD SPECIMEN Ordering Facility: [facility] Address: [address] [place] [address] Result Comment: The [place] Diabetes Association (ADA) provides guidance for cutoff values for fasting glucose and random glucose. The ADA defines fasting as no caloric intake for at least 8 hours. Fasting plasma glucose results between 100 to 125 mg/dL indicate increased risk for diabetes (prediabetes). Fasting plasma glucose results greater than or equal to 126 mg/dL meet the criteria for diagnosis of diabetes. In the absence of unequivocal hyperglycemia, results should be confirmed by repeat testing. In a patient with classic symptoms of hyperglycemia or hyperglycemic crisis, random plasma glucose results greater than or equal to 200 mg/dL meet the criteria for diagnosis of diabetes. Reference: Standards of Medical Care in Diabetes 2016, [place] Diabetes Association. Diabetes Care. 2016.39(Suppl 1). Performed By: #### 2 4331-1, #### [facility] CLIA [id number] [address] [place] [address] [place] Potassium [Moles/Vol] 4.4 mmol/L Normal 3.7-5.1 [facility] Comment on above: Order Comment: Speci men Type: BLOOD SPECIMEN Ordering Facility: [facility] Address: [address] [place] [address] Performed By: #### 2 4331-, #### [facility] CLIA [id number] [address] [place] [address] [place] Protein [Mass/Vol] 7.0 g/dL Normal 6.3-8.0 [facility] Comment on above: Order Comment: Speci men Type: BLOOD SPECIMEN Ordering Facility: [facility] Address: [address] [place] [address] Performed By: #### 2 4331-, #### [facility] CLIA [id number] [address] [place] [address] [place] Sodium [Moles/Vol] 142 mmol/L Normal 136-144 [facility] Comment on above: Order Comment: Speci men Type: BLOOD SPECIMEN Ordering Facility: [facility] Address: [address] [place], [place] [address] Performed By: #### 2 4331-, #### [facility] CLIA [id number] [address] [place], [place] [address] [place] Urea nitrogen [Mass/Vol] 17 mg/dL Normal 9-24 [facility] Comment on above: Order Comment: Speci men Type: BLOOD SPECIMEN Ordering Facility: [facility] Address: [address] [place], [place] [address] Performed By: #### 2 4331-1, 76877-7 #### [facility] CLIA [id number] [address] [place] [address] [place] HbA1c (Bld)on 01-16-2025 Average glucose Estimated from glycated hemoglobin (Bld) [Mass/Vol] 88 mg/dL Normal [facility] Comment on above: Order Comment: Jonah quiroz Type: BLOOD SPECIMEN Ordering Facility: [facility] Address: [address] [place] [address] Result Comment: eAG: (Estimated average glucose) is a calculated value from HgbA1c and is in home sales representative of the average blood glucose level in the last 2-3 month period. Performed By: #### 5 5454-3 #### [facility] CLIA [id number] [address] [place] [address] [place] HbA1c (Bld) [Mass fraction] 4.7 % Normal 4.3-5.6 [facility] Comment on above: Order Comment: Jonah quiroz Type: BLOOD SPECIMEN Ordering Facility: [facility] Address: [address] [place] [address] Result Comment: [place] Diabetes Association guidelines indicate that patients with HgbA1c in the range 5.7-6.4% are at increased risk for development of diabetes, and intervention by lifestyle modification may be beneficial. HgbA1c greater or equal to 6.5% is considered diagnostic of diabetes. Performed By: #### 5 5454-3 #### [facility] CLIA [id number] [address] [place] [address] [place] Lipid 1996 panelon 5 Cholesterol [Mass/Vol] 234 mg/dL High <200 [facility] Comment on above: Order Comment: Jonah quiroz Type: BLOOD SPECIMEN Ordering Facility: [facility] Address: [address] [place] [address] Result Comment: <200 mg/dL, Desirable 200-239 mg/dL, Borderline high >239 mg/dL, High Performed By: #### 2 4331-1, 92209-7 #### [facility] CLIA [id number] [address] [place] [address] [place] Cholesterol in HDL [Mass/Vol] 39 mg/dL Low >39 [facility] Comment on above: Order Comment: Flakitobárbara quiroz Type: BLOOD SPECIMEN Ordering Facility: [facility] Address: [address] [place] [address] Result Comment: 40-5 9 mg/dL, Acceptable >59 mg/dL, High: Negative risk factor for coronary heart disease <40 mg/dL, Low: Positive risk factor for coronary heart disease Performed By: #### 2 4331-1, 94471-3 #### [facility] CLIA [id number] [address] [place] [address] Cholesterol in LDL [Mass/Vol] 176 mg/dL High <100 [facility] Comment on above: Order Comment: Jonah richie Type: BLOOD SPECIMEN Ordering Facility: [facility] Address: [address] [place] [address] Result Comment: <100 mg/dL, Optimal 100-129 mg/dL, Near optimal/above optimal 130-159 mg/dL, Borderline high 160-189 mg/dL, High >189 mg/dL, Very high Secondary prevention optimal LDL Cholesterol levels are recommended to be < 70 mg/dL Performed By: #### 2 4331-1, 98309-5 #### [facility] CLIA [id number] [address] [place] [address] Cholesterol in LDL/Cholesterol in HDL [Mass ratio] 4.51 {ratio} High <2.54 [facility] Comment on above: Order Comment: Jonah quiroz Type: BLOOD SPECIMEN Ordering Facility: [facility] Address: [address] [place] [address] Result Comment: Refe rence: 1. National Cholesterol Education Program ATP III Guideline At-A-Glance Quick Desk Reference: National Heart, Lung, and Blood [place]. National Institutes of Health. 2001: NIH Publication No. 01-3305. 2. An International Atherosclerosis Society position paper: global recommendations for the management of dyslipidemia: executive summary, Atherosclerosis. 2014: 232(2):410-413. Performed By: #### 2 4331-1, 82236-6 #### [facility] CLIA [id number] [address] [place] [address] [place] Cholesterol in VLDL [Mass/Vol] 19 mg/dL Normal <30 [facility] Comment on above: Order Comment: Speci men Type: BLOOD SPECIMEN Ordering Facility: [facility] Address: [address] [place] [address] Performed By: #### 2 4331-1, 31090-3 #### [facility] CLIA [id number] [address] [place], [place] [address] [place] Cholesterol non HDL [Mass/Vol] 195 mg/dL High <130 [facility] Comment on above: Order Comment: Speci men Type: BLOOD SPECIMEN Ordering Facility: [facility] Address: [address] [place] [address] Result Comment: <130 mg/dL, Optimal 130-159 mg/dL, Near optimal/above optimal 160-189 mg/dL, Borderline high 190-219 mg/dL, High >219 mg/dL, Very high Secondary prevention optimal non HDL Cholesterol levels are recommended to be <100 mg/dL Performed By: #### 2 4331-1, 95094-7 #### [facility] CLIA [id number] [address] [place] [address] [place] Cholesterol.total/C holesterol in HDL [Mass ratio] 6.00 {ratio} High <5.10 [facility] Comment on above: Order Comment: Speci men Type: BLOOD SPECIMEN Ordering Facility: [facility] Address: [address] [place], [place] [address] Performed By: #### 2 4331-1, 29058-1 #### [facility] CLIA [id number] [address] [place], [place] [address] [place] FASTING TIME 12 hrs Normal [facility] Comment on above: Order Comment: Speci men Type: BLOOD SPECIMEN Ordering Facility: [facility] Address: [address] [place], [place] [address] Performed By: #### 2 4331-1, 61313-0 #### [facility] CLIA [id number] [address] [place] [address] [place] Triglyceride [Mass/Vol] 96 mg/dL Normal <150 [facility] Comment on above: Order Comment: Speci men Type: BLOOD SPECIMEN Ordering Facility: [facility] Address: [address] [place] [address] Result Comment: <150 mg/dL, Normal 150-199 mg/dL, Borderline high 200-499 mg/dL, High >499 mg/dL, Very high Performed By: #### 2 4331-1, 20701-2 #### [facility] CLIA [id number] [address] [place] [address] [place] POLYSOMNOGRAM (PSG)/HOME SLE EP APNEA TEST (HSAT)on 09-13-2024 POLYSOMNOGRAM (PSG)/HOME SLEEP APNEA TEST (HSAT) [facility] at [address], [facility] [address], [place] [address] ; Home Sleep Apnea Test (HSAT) Study Report Name: KVNG MADSEN Date of Study: 09/13/2024 [facility]#: [id number] Age: 43 (: 1980) ESS: 524 Neck Circ. (cm): N/A Height (cm): 174.0 Weight (kg): 86.8 BMI: 28.7 Referring Provider: ALLEGRA BLACKMAN Mailcode: N/A Sleep history: The patient is a 43 year old male with a history of daytime sleepiness, fatigue, multiple awakenings from sleep, and mouth breathing. The patient is here for assessment of obstructive sleep apnea. The patient endorses being a habitual side sleeper. Pertinent medical history: Allergies, Anxiety, GERD, Headaches Medications: Bupropion, Fluoxetine, Esomeprazole, Montelukast, Topiramate Sleep procedure: PSG unattended Type III, minimum of 4 parameters (23960) Procedure: This study was performed using a Type III ambulatory PSG device and was unattended. The patient was instructed on proper use of the device by a registered ocular care technologist. The monitored parameters included heart rate, oxygen saturation, continuous airflow with thermistor and nasal pressure transducer, snoring via nasal pressure transducer, chest and abdominal effort, and body position. SCOTTIE definition: Respiratory event index (SCOTTIE), calculated as respiratory events x 60 / TRT (total recording time in minutes). Note: the apnea hypopnea index has been replaced by the respiratory event index for home sleep apnea test. Since the home sleep apnea test does not measure sleep, the SCOTTIE is most accurate index of respiratory events. The SCOTTIE is a surrogate of the AHI per the AASM Manual for Scoring of Sleep and Associated Events version 3. Apnea definition: The peak signal excursions drop by >90% of pre-event baseline using an oronasal thermal sensor (diagnostic study), PAP device flow (titration study) or an alternative apnea sensor (diagnostic study). The duration of the >90% drop in signal excursion is >=10 seconds. Hypopnea definition: The peak signal excursions drop by >= 30% of pre-event baseline using nasal pressure (diagnostic study), PAP device flow (titration study) or an alternative hypopnea sensor (diagnostic study). The duration of the >= 30% drop in signal excursion is >=10 seconds. There is a greater than or equal to 3% oxygen desaturation from pre-event baseline. RESPIRATORY DATA: The study started at 21:24:48 and ended at 05:42:22 and the total recording time was 497 minutes. By convention, sleep is assumed for the whole recording. Snoring was noted. There was a total of 58 respiratory events. Of these events, the total number of apneas was 2 (2 obstructive, 0 mixed, and 0 central (0.0%)) and 56 hypopneas. The central apnea index (MITA) was 0.0. The respiratory event index (SCOTTIE) was 7.0 events per hour of study time. The mean oxygen saturation during the study was 95.0%, with a minimum oxygen saturation of 88.0%. The patient spent 0.2 minutes at oxygen saturation measured less than 90% (0.1% of recording time) and 0.1 minutes at oxygen saturation measured at or less than 88% (0.0% of recording time). Time SCOTTIE/AHI Supine 287.5 min 8.3 Off-Supine 210.0 min 5.1 Total 497.5 min 7.0 ECG DATA: The average heart rate was 74 bpm with a range of 61 bpm to 104 bpm. ICSD DIAGNOSIS: Obstructive Sleep Apnea Syndrome [G47.33] IMPRESSION/RECOMMENDAT IONS: 1. This study confirms a diagnosis of at least mild obstructive sleep apnea. 2. The results of this study may represent an underestimation of the degree of obstructive sleep apnea, especially hypopneas, because of the known limitations of HSAT, such as inability to record arousals because EEG is not recorded. 3. Treatment of mild sleep apnea can include weight loss, positional therapy, treatment of allergies, oral appliance therapy or ENT evaluation of any airway abnormalities. PAP therapy may be considered in patients with documented symptoms of daytime sleepiness, impaired cognition, mood disorder, insomnia, or documented hypertension, ischemic heart disease, or history of stroke. INTERPRETING PHYSICIAN: Awilda Espinosa MD. PHYSICIAN I attest that I have performed epoch by epoch review of the entire raw data and find this study to be technically adequate. Report Digitally Signed By: AWILDA ESPINOSA MD (2024 7:35:30 PM) Normal [facility]04[facility]20[facility] KVNG MADSEN ([id number]) 1980 M Date Time Provider Department 08/04/24 [facility] During your visit today, we recorded the following information about you: Hawa Quezada MA 08/04/2024 8:55 AM Signed Pt sent in [employer] message on 08/04/24 asking about migraine relief. Please review message and advise. Pt was last seen for Wellness visit by Michelle Antony CNP on 12/07/23. Hawa Quezada MA Pt message: Previously, I was prescribed different medications to help with migraines that didn?t offer any relief. It was suggested I may need to go to the migraine clinic. I?m not opposed to doing that but I wondered if there is any other medication I can try before seeing a specialist? If not, can a referral be made for me? *I?m still having headaches nearly daily and migraines at least 2 a week. Thanks, Hao Nichols DO 08/05/2024 4:58 PM Signed Please let him know that a referral for Neurologist has been made to get an opinion DO Chaz Sigala Janice, LPN 08/06/2024 10:01 AM Signed Pt notified via my chart. Allergies As of Date: 08/04/2024 Noted Allergy Reaction IMITREX (SUMATRIPTAN) 01/23/2022 17 - Myalgia Date Reviewed: 12/07/2023 Reviewed by: Michelle Antony APRN.EVENT MANAGER - Fully Assessed Reason for Visit: Patient Question [8477] Cmt: Migraine/Headache Primary Visit Diagnosis:Migraine headaches [G43.909] Order(s):CONSULT TO NEUROLOGY [9019] Order #: [id number]: 1 FUTURE Prescriptions as of 08/06/2024 - buPROPion SR (WELLBUTRIN SR) 150 mg 12 hr tablet Take 1 tablet by mouth once daily. - FLUoxetine (PROZAC) 20 mg capsule One pill by mouth daily. - esomeprazole (NEXIUM) 20 mg capsule Take 1 capsule by mouth daily before breakfast. 1/2 hr before meal. - montelukast (SINGULAIR) 10 mg tablet Take 1 tablet by mouth daily at bedtime. 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] 11/22/2019 LISBETH (generalized anxiety disorder) [F41.1] 04/23/2020 Encounter Status:Closed by RODY WILLETT on 08/06/24 Normal [facility] CBC W Auto Differential pane l (Bld)on 11-12-2022 Basophils (Bld) [#/Vol] 0.06 10*3/uL <0.11 k/uL [facility] Basophils/100 WBC (Bld) 0.9 % [facility] Differential cell count method Nom (Bld) Auto [facility] Eosinophils (Bld) [#/Vol] 0.18 10*3/uL <0.46 k/uL [facility] Eosinophils/100 WBC (Bld) 2.7 % [facility] Erythrocyte distribution width (RBC) [Ratio] 11.8 % 11.5 - 15.0 % [facility] Hematocrit (Bld) [Volume fraction] 44.2 % 39.0 - 51.0 % [facility] Hemoglobin (Bld) [Mass/Vol] 15.2 g/dL 13.0 - 17.0 g/dL [facility] Immature granulocytes (Bld) [#/Vol] <0.10 k/uL [facility] Immature granulocytes/100 WBC (Bld) 0.3 % [facility] Lymphocytes (Bld) [#/Vol] 1.95 10*3/uL 1.00 - 4.00 k/uL [facility] Lymphocytes/100 WBC (Bld) 29.5 % [facility] MCH (RBC) [Entitic mass] 31.0 pg 26.0 - 34.0 pg [facility] MCHC (RBC) [Mass/Vol] 34.4 g/dL 30.5 - 36.0 g/dL [facility] MCV (RBC) [Entitic vol] 90.0 fL 80.0 - 100.0 fL [facility] Monocytes (Bld) [#/Vol] 0.53 10*3/uL <0.87 k/uL [facility] Monocytes/100 WBC (Bld) 8.0 % [facility] Neutrophils (Bld) [#/Vol] 3.88 10*3/uL 1.45 - 7.50 k/uL [facility] Neutrophils/100 WBC (Bld) 58.6 % [facility] Nucleated RBC (Bld) [#/Vol] <0.01 k/uL [facility] Nucleated RBC/100 WBC (Bld) [Ratio] 0.0 /100 WBC [facility] Platelet mean volume (Bld) [Entitic vol] 11.4 fL 9.0 - 12.7 fL [facility] Platelets (Bld) [#/Vol] 207 10*3/uL 150 - 400 k/uL [facility] RBC (Bld) [#/Vol] 4.91 10*6/uL 4.20 - 6.0 0 m/uL [facility] WBC (Bld) [#/Vol] 6.62 10*3/uL 3.70 - 11. 00 k/uL [facility] CT CHEST W IVCONon 2 [facility] Creatinine and Glomerular fi ltration rate.predicted panel (S/P/Bld)on 11-26-2021 Creatinine [Mass/Vol] 1.22 mg/dL 0.73 - 1.22 mg/dL [facility] GFR/1.73 sq M.predicted among blacks MDRD (S/P/Bld) [Vol rate/Area] mL/min/{1.73_m2} [facility] GFR/1.73 sq M.predicted among non-blacks MDRD (S/P/Bld) [Vol rate/Area] mL/min/{1.73_m2} [facility] XR Chest PA and LateralOrder ed By: Ccf Provider on 09-10-2021 Interpretation and review of laboratory results Abnormal [facility] Radiology Result ACTIONABLE Abnormal [facility] Comment on above: This report contains an incidental or actionable finding. This is a new finding that is separate from the reason your provider ordered the imaging test. Because of this incidental or actionable finding, you may need another imaging test to evaluate it. Please contact your provider for the next steps. [facility] XR Chest PA and Lateralon IMPRESSION: 1. 2.3 cm rounded nodule in the left lung. Further evaluation with CT chest is advised. 2. Suggestion of faint hazy opacities in the periphery of the right mid to lower lung zone which may be related to clinically suspected viral pneumonia. Incidental Finding: Follow-up Acuity: Incidental Finding: Suspicious appearing incidentally detected nodular lung density on CXR. Routing Code: RI_1 Recommendation: CT Chest WO IVCON Time Frame: in 4 weeks COMMUNICATION:? Results will be communicated with the ordering provider via [employer] staff message by [employer] within 2 business days of report finalization. Supervisor Core Drilling: [place] Transcribe Date/Time: Sep 10 2021 1:07P Dictated by : ANDREW SMALLWOOD MD This examination was interpreted and the report reviewed and electronically signed by: ANDREW SMALLWOOD MD on Sep 10 2021 1:09PM [facility] DIVISION OF RADIOLOGY * * *Final Report* * * DATE OF EXAM: Sep 10 2021 12:58PM WOX 5291 - XR CHEST 2V FRONTAL/LAT / PROCEDURE REASON: multiple diagnoses * * * * Physician Interpretation * * * * EXAMINATION: CHEST RADIOGRAPH (2 VIEW FRONTAL & LATERAL) CLINICAL HISTORY: Suspected COVID-19 virus infection Exposure to confirmed case of COVID-19 MQ: XC2_6 EXAM DATE/TIME: 09/10/2021 12:58 PM COMPARISON: Chest x-ray dated October 16, 2009 RESULT: Lines, tubes, and devices: None. Lungs and pleura: There is a 2.3 cm round nodule projecting in the superior aspect of the left lower lobe. There is suggestion of faint hazy opacities in the periphery of the right mid to lower lung zone which may be related to clinically suspected viral pneumonia. No pleural effusion or pneumothorax. Cardiomediastinal silhouette: Normal cardiomediastinal silhouette. Bones and soft tissues: Unremarkable. DIVISION OF RADIOLOGY Provider, [facility] - 09/10/2021 * * *Final Report* * * DATE OF EXAM: Sep 10 2021 12:58PM WOX 5291 - XR CHEST 2V FRONTAL/LAT / PROCEDURE REASON: multiple diagnoses * * * * Physician Interpretation * * * * EXAMINATION: CHEST RADIOGRAPH (2 VIEW FRONTAL & LATERAL) CLINICAL HISTORY: Suspected COVID-19 virus infection Exposure to confirmed case of COVID-19 MQ: XC2_6 EXAM DATE/TIME: 09/10/2021 12:58 PM COMPARISON: Chest x-ray dated October 16, 2009 RESULT: Lines, tubes, and devices: None. Lungs and pleura: There is a 2.3 cm round nodule projecting in the superior aspect of the left lower lobe. There is suggestion of faint hazy opacities in the periphery of the right mid to lower lung zone which may be related to clinically suspected viral pneumonia. No pleural effusion or pneumothorax. Cardiomediastinal silhouette: Normal cardiomediastinal silhouette. Bones and soft tissues: Unremarkable. IMPRESSION IMPRESSION: 1. 2.3 cm rounded nodule in the left lung. Further evaluation with CT chest is advised. 2. Suggestion of faint hazy opacities in the periphery of the right mid to lower lung zone which may be related to clinically suspected viral pneumonia. Incidental Finding: Follow-up Acuity: Incidental Finding: Suspicious appearing incidentally detected nodular lung density on CXR. Routing Code: RI_1 Recommendation: CT Chest WO IVCON Time Frame: in 4 weeks COMMUNICATION:? Results will be communicated with the ordering provider via [employer] staff message by [employer] within 2 business days of report finalization. Supervisor Core Drilling[facility] Transcribe Date/Time: Sep 10 2021 1:07P Dictated by : ANDREW SMALLWOOD MD This examination was interpreted and the report reviewed and electronically signed by: ANDREW SMALLWOOD MD on Sep 10 2021 1:09PM EST [facility] Radiology Study observation (narrative) [facility] XR Elbow - right AP and Late ralon 06-24-2021 IMPRESSION: No radiographic evidence of osseous abnormality Supervisor Core Drilling: [facility] Transcribe Date/Time: Jun 24 2021 3:24P Dictated by : ANDREW SMALLWOOD MD This examination was interpreted and the report reviewed and electronically signed by: ANDREW SMALLWOOD MD on Jun 24 2021 3:25PM EST DIVISION OF RADIOLOGY * * *Final Report* * * DATE OF EXAM: Jun 24 2021 3:12PM WOX 5323 - XR ELBOW 2V AP/LAT RT / PROCEDURE REASON: Right elbow pain * * * * Physician Interpretation * * * * CLINICAL INDICATION: Elbow pain TECHNIQUE: AP and lateral radiographs of the right elbow COMPARISON: None FINDINGS: No abnormal elevation of the anterior or posterior fat pad to suggest elbow joint effusion. No fracture or dislocation identified. Joint spaces preserved. DIVISION OF RADIOLOGY Provider, [facility] - 06/24/2021 * * *Final Report* * * DATE OF EXAM: Jun 24 2021 3:12PM WOX 5323 - XR ELBOW 2V AP/LAT RT / PROCEDURE REASON: Right elbow pain * * * * Physician Interpretation * * * * CLINICAL INDICATION: Elbow pain TECHNIQUE: AP and lateral radiographs of the right elbow COMPARISON: None FINDINGS: No abnormal elevation of the anterior or posterior fat pad to suggest elbow joint effusion. No fracture or dislocation identified. Joint spaces preserved. IMPRESSION IMPRESSION: No radiographic evidence of osseous abnormality Supervisor [employer] Drilling: [facility] Transcribe Date/Time: Jun 24 2021 3:24P Dictated by : ANDREW SMALLWOOD MD This examination was interpreted and the report reviewed and electronically signed by: ANDREW SMALLWOOD MD on Jun 24 2021 3:25PM EST [facility] Radiology Study observation (narrative) [facility] XR Elbow - right AP and Late ralOrdered By: Ccf Provider on 06-24-2021 [facility] CNPNon 12-01-2019 CNPN Telephone (CDLBME) KVNG MADSEN ([id number]) 1980 M Date Time Provider Department 12/01/19 DESTINY BECKWITH (RN) CDLBME During your visit today, we recorded the following information about you: Destiny Beckwith RN, RN 12/01/2019 12:33 PM Signed Spoke with patient regarding reminder for stress test tomorrow and given instructions. Allergies As of Date: 12/01/2019 (No Known Allergies) Date Reviewed: 11/22/2019 Reviewed by: Leila Amaya Ma - Fully Assessed Reason for Visit: Reminder Call [[id number]] Prescriptions as of 12/01/2019 Sig: FLUTICASONE PROPIONATE 50 MCG* Use 2 Sprays in each nostril * MECLIZINE 12.5 MG TABLET Take 1-2 tablets by mouth cande* CHOLECALCIFEROL (VITAMIN D3) * Take 1 capsule by mouth once * ESCITALOPRAM 10 MG TABLET 1/2 pill daily X 1 week; then* ESOMEPRAZOLE MAGNESIUM 20 MG * Take 1 capsule by mouth daily* PERFLUTREN LIPID MICROSPHERES* Inject 1.3 mL intravenously a* PRILOSEC OTC ORAL Take by mouth. Problem List As Of Date 12/01/2019 Noted Resolved Cough [R05] 10/16/2009 GERD (gastroesophageal reflux disease) [K21.9] 10/16/2009 More... Ganglion cyst of wrist [M67.439] 07/04/2014 More... Calcified granuloma of lung (HCC) [J84.10] 11/22/2019 More... Encounter Status:Closed by DESTINY BECKWITH on 12/01/19 [facility] .Auto Diffon 11-19-2019 Ammonia (P) [Mass/Vol] 0.60 10 3/mcL Normal 0.09-1.40 [facility] ([place]) Comment on above: Performed By: #### B MP, GFR, TROPI, CBC, ADIFF, ANEU #### [address] [address] Basophils (Bld) [#/Vol] 0.10 10 3/mcL Normal 0.00-0.27 [facility] ([place]) Comment on above: Performed By: #### B MP, GFR, TROPI, CBC, ADIFF, ANEU #### [address] [address] Basophils/100 WBC (Bld) 0.7 % Normal 0.0-2.5 [facility] ([place]) Comment on above: Performed By: #### B MP, GFR, TROPI, CBC, ADIFF, ANEU #### [address] [address] Eosinophils (Bld) [#/Vol] 0.20 10 3/mcL Normal 0.00-0.65 [facility] ([place]) Comment on above: Performed By: #### B MP, GFR, TROPI, CBC, ADIFF, ANEU #### [address] [address] Eosinophils/100 WBC (Bld) 2.3 % Normal 0.0-6.0 [facility] ([place]) Comment on above: Performed By: #### B MP, GFR, TROPI, CBC, ADIFF, ANEU #### [address] [address] Lymphocytes (Bld) [#/Vol] 1.40 10 3/mcL Normal 0.90-4.32 [facility] ([place]) Comment on above: Performed By: #### B MP, GFR, TROPI, CBC, ADIFF, ANEU #### [address] [address] Lymphocytes/100 WBC (Bld) 15.6 % Low 20.0-40.0 [facility] ([place]) Comment on above: Performed By: #### B MP, GFR, TROPI, CBC, ADIFF, ANEU #### [address] [address] Monocytes/100 WBC (Bld) 7.4 % Normal 2.0-13.0 [facility] ([place]) Comment on above: Performed By: #### B MP, GFR, TROPI, CBC, ADIFF, ANEU #### [address] [address] Neutrophils/100 WBC (Bld) 74.0 % Normal 50.0-75.0 [facility] ([place] Comment on above: Performed By: #### B MP, GFR, TROPI, CBC, ADIFF, ANEU #### [address] [address] .GFRon 11-19-2019 GFR >60 Normal [facility] ([place]) Comment on above: Result Comment: GFR Population mean for , Non- Americans Ages 20-29 = 116 mL/min/1.73 sq.m. Ages 30-39 = 107 mL/min/1.73 sq.m. Ages 40-49 = 99 mL/min/1.73 sq.m. Ages 50-59 = 93 mL/min/1.73 sq.m. Ages 60-69 = 85 mL/min/1.73 sq.m. Ages 70+ = 75 mL/min/1.73 sq.m. Chronic Kidney Disease: Less than 60 mL/min/1.73 square meters End Stage Renal Disease: Less than 15 mL/min/1.73 square meters Performed By: #### B MP, GFR, TROPI, CBC, ADIFF, ANEU #### [address] [address] GFR Non- >60 Normal [facility] ([place]) Comment on above: Result Comment: GFR Population mean for , Non- Americans Ages 20-29 = 116 mL/min/1.73 sq.m. Ages 30-39 = 107 mL/min/1.73 sq.m. Ages 40-49 = 99 mL/min/1.73 sq.m. Ages 50-59 = 93 mL/min/1.73 sq.m. Ages 60-69 = 85 mL/min/1.73 sq.m. Ages 70+ = 75 mL/min/1.73 sq.m. Chronic Kidney Disease: Less than 60 mL/min/1.73 square meters End Stage Renal Disease: Less than 15 mL/min/1.73 square meters Performed By: #### B MP, GFR, TROPI, CBC, ADIFF, ANEU #### [address] [address] .NEUABSon 11-19-2019 Neutrophils (Bld) [#/Vol] 6.40 10 3/mcL Normal 2.25-8.10 [facility] ([place]) Comment on above: Performed By: #### B MP, GFR, TROPI, CBC, ADIFF, ANEU #### [address] [address] BMPon 11-19-2019 Calcium [Mass/Vol] 9.0 mg/dL Normal 8.4-10.1 [facility] ([place]) Comment on above: Performed By: #### B MP, GFR, TROPI, CBC, ADIFF, ANEU #### [address] [address] Chloride [Moles/Vol] 108 mmol/L Normal 98-110 [facility] ([place]) Comment on above: Performed By: #### B MP, GFR, TROPI, CBC, ADIFF, ANEU #### [address] [address] CO2 [Moles/Vol] 26 mmol/L Normal 22-32 [facility] ([place]) Comment on above: Performed By: #### B MP, GFR, TROPI, CBC, ADIFF, ANEU #### [address] [address] Creatinine [Mass/Vol] 0.91 mg/dL Normal 0.60-1.40 [facility] ([place]) Comment on above: Performed By: #### B MP, GFR, TROPI, CBC, ADIFF, ANEU #### [address] [address] Electrolyte Balance 7.0 mEq/L Normal 4.0-15.0 [facility] ([place]) Comment on above: Performed By: #### B MP, GFR, TROPI, CBC, ADIFF, ANEU #### [address] [address] Glucose [Mass/Vol] 95 mg/dL Normal 70-110 [facility] ([place]) Comment on above: Performed By: #### B MP, GFR, TROPI, CBC, ADIFF, ANEU #### [place] [id number] Potassium [Moles/Vol] 4.0 mmol/L Normal 3.5-5.0 [facility] ([place]) Comment on above: Performed By: #### B MP, GFR, TROPI, CBC, ADIFF, ANEU #### [place] [address] Sodium [Moles/Vol] 141 mmol/L Normal 136-145 [facility] ([place]) Comment on above: Performed By: #### B MP, GFR, TROPI, CBC, ADIFF, ANEU #### [place] [address] Urea nitrogen [Mass/Vol] 18.0 mg/dL Normal 8.0-22.0 [facility] ([place]) Comment on above: Performed By: #### B MP, GFR, TROPI, CBC, ADIFF, ANEU #### [place] [id number] Urea nitrogen/Creatinine [Mass ratio] 19.8 ratio Normal 10.0-22.0 [facility] ([place]) Comment on above: Performed By: #### B MP, GFR, TROPI, CBC, ADIFF, ANEU #### [address] [address] CBCon 11-19-2019 Erythrocyte distribution width (RBC) [Ratio] 12.2 % Normal 11.5-15.5 [facility] ([place] Comment on above: Performed By: #### B MP, GFR, TROPI, CBC, ADIFF, ANEU #### [place] [address] Hematocrit (Bld) [Volume fraction] 46.0 % Normal 40.0-52.0 [facility] ([place] Comment on above: Performed By: #### B MP, GFR, TROPI, CBC, ADIFF, ANEU #### [place] [address] Hemoglobin (Bld) [Mass/Vol] 15.9 G/dL Normal 13.0-17.5 [facility] ([place]) Comment on above: Performed By: #### B MP, GFR, TROPI, CBC, ADIFF, ANEU #### [place] [address] MCH (RBC) [Entitic mass] 31.7 pg Normal 27.0-33.0 [facility] ([place] Comment on above: Performed By: #### B MP, GFR, TROPI, CBC, ADIFF, ANEU #### [place] [id number] MCHC (RBC) [Mass/Vol] 34.6 G/dL Normal 32.0-36.0 [facility] ([place] Comment on above: Performed By: #### B MP, GFR, TROPI, CBC, ADIFF, ANEU #### [place] [address] MCV (RBC) [Entitic vol] 91.6 fL Normal 81.0-100.0 [facility] ([place] Comment on above: Performed By: #### B MP, GFR, TROPI, CBC, ADIFF, ANEU #### [place] [address] Platelet mean volume (Bld) [Entitic vol] 9.3 fL Normal 6.4-10.5 [facility] ([place] Comment on above: Performed By: #### B MP, GFR, TROPI, CBC, ADIFF, ANEU #### [facility] [address] [place], [place] [address] Platelets (Bld) [#/Vol] 162 10 3/mcL Normal 150-450 [facility] ([place] Comment on above: Performed By: #### B MP, GFR, TROPI, CBC, ADIFF, ANEU #### [address] [address] RBC (Bld) [#/Vol] 5.02 10 6/mcL Normal 4.50-6.00 [facility] ([place] Comment on above: Performed By: #### B MP, GFR, TROPI, CBC, ADIFF, ANEU #### [address] [address] WBC (Bld) [#/Vol] 8.60 10 3/mcL Normal 4.50-10.80 [facility] ([place] Comment on above: Performed By: #### B MP, GFR, TROPI, CBC, ADIFF, ANEU #### [address] [address] TROPIon 11-19-2019 Troponin I.cardiac [Mass/Vol] ng/mL Normal 0.000-0.040 [facility] ([place]) Comment on above: Result Comment: Trop onin I reference ranges (07/31/14): 0.00-0.040 ng/mL Negative and non-diagnostic. >0.040 ng/mL Consistent with cardiac damage, increased clinical risk and possibility of myocardial infarction. Serial measurements, a rise & fall in test results, clinical history, appropriate symptoms and/or ECG changes may help assess possibility of NE. *Other non-acute coronary syndrome conditions such as CHF, myocarditis, pulmonary emboli, sepsis and cardiac surgery could result in myocardial damage and increased troponin levels. Performed By: #### B MP, GFR, TROPI, CBC, ADIFF, ANEU #### [address] [address] Basic Metabolic Profile (BMP )on 11-18-2019 Calcium [Mass/Vol] 9.3 mg/dL Normal 8.5-10.1 [facility] Comment on above: Performed By: #### L 500.2500, L501.4010 #### [facility] [address] [place], [address] Chloride [Moles/Vol] 108 mmol/L High 98-107 [facility] Comment on above: Performed By: #### L 500.2500, L501.4010 #### [facility] [address] [place], [address] CO2 [Moles/Vol] 27.0 mmol/L Normal 21.0-32.0 [facility] Comment on above: Performed By: #### L 500.2500, L501.4010 #### [facility] [address] [place], [address] Creatinine [Mass/Vol] 1.04 mg/dL Normal 0.70-1.30 [facility] Comment on above: Result Comment: The validity of the calculated GFR AND GFRAA in patients over 70 years has not been determined. Clinical correlation is essential. Performed By: #### L 500.2500, L501.4010 #### [facility] [address] [place], [address] EST GFR - AA 103 mL/min Normal >60 [facility] Comment on above: Result Comment: Afri can Slovak GFR Calc Performed By: #### L 500.2500, L501.4010 #### [facility] [address] [place], [address] Estimated CRCL 103.58 ml/min Normal [facility] Comment on above: Performed By: #### L 500.2500, L501.4010 #### [facility] [address] [place], [address] GAP 7 Normal 5-15 [facility] Comment on above: Performed By: #### L 500.2500, L501.4010 #### [facility] [address] [place], [address] GFR/1.73 sq M predicted among non-blacks MDRD (S/P/Bld) [Vol rate/Area] 85 mL/min/{1.73_m2} Normal >60 [facility] Comment on above: Result Comment: Non- GFR Calc Performed By: #### L 500.2500, L501.4010 #### [facility] [address] [place], [address] Glucose [Mass/Vol] 93 mg/dL Normal 74-106 [facility] Comment on above: Result Comment: Bill witt note revised GLUCOSE reference range effective 2017. Performed By: #### L 500.2500, L501.4010 #### [facility] [address] [place], [address] Potassium [Moles/Vol] 3.8 mmol/L Normal 3.5-5.1 [facility] Comment on above: Performed By: #### L 500.2500, L501.4010 #### [facility] [address] [place], [address] Sodium [Moles/Vol] 142 mmol/L Normal 136-145 [facility] Comment on above: Performed By: #### L 500.2500, L501.4010 #### [facility] [address] [place], [address] Urea nitrogen [Mass/Vol] 18 mg/dL Normal 7-18 [facility] Comment on above: Performed By: #### L 500.2500, L501.4010 #### [facility] [address] [place], [address] Urea nitrogen [Mass/Vol] 17.3 RATIO Normal 10-20 [facility] Comment on above: Performed By: #### L 500.2500, L501.4010 #### [facility] [address] [place], [address] CBC W/Diff, Automatedon 12-2 Absolute Neut 4.4 X10 3/uL Normal 2.0-7.7 [facility] Comment on above: Performed By: #### L 100.0100 #### [facility] [address] [place], [address] Basophils/100 WBC (Bld) 0.7 % Normal 0-1 [facility] Comment on above: Performed By: #### L 100.0100 #### [facility] [address] [place], [address] Eosinophils/100 WBC (Bld) 3.3 % Normal 0-5 [facility] Comment on above: Performed By: #### L 100.0100 #### [facility] [address] [place], [address] Erythrocyte distribution width (RBC) [Ratio] 11.6 % Normal 11.6-14.6 [facility] Comment on above: Performed By: #### L 100.0100 #### [facility] [address] [place], [address] Hematocrit (Bld) [Volume fraction] 45.6 % Normal 40-54 [facility] Comment on above: Performed By: #### L 100.0100 #### [facility] [address] [place], [address] Hemoglobin (Bld) [Mass/Vol] 16.5 g/dL Normal 13.0-16.5 [facility] Comment on above: Performed By: #### L 100.0100 #### [facility] [address] [place], [address] IM GRAN % 0.700 % Normal 0.0-0.9 [facility] Comment on above: Result Comment: IG% - Immature Granulocytes (promyelocytes, myelocytes and metamyelocytes) > 1% indicates that a LEFT SHIFT is Present. Performed By: #### L 100.0100 #### [facility] [address] [place], [address] Lymphocytes (Bld) [#/Vol] 2.04 X10 3/uL Normal 0.83-4.51 [facility] Comment on above: Performed By: #### L 100.0100 #### [facility] [address] [place], [address] Lymphocytes/100 WBC (Bld) 27.9 % Normal 19-41 [facility] Comment on above: Performed By: #### L 100.0100 #### [facility] [address] [place], [address] MCH (RBC) [Entitic mass] 32.0 pg Normal 27.0-32.0 [facility] Comment on above: Performed By: #### L 100.0100 #### [facility] [address] [place], [address] MCHC (RBC) [Mass/Vol] 36.2 g/dL High 32-36 [facility] Comment on above: Performed By: #### L 100.0100 #### [facility] [address] [place], [address] MCV (RBC) [Entitic vol] 88.5 fL Normal 80-94 [facility] Comment on above: Performed By: #### L 100.0100 #### [facility] [address] [place], [address] Monocytes/100 WBC (Bld) 7.5 % Normal 0-10 [facility] Comment on above: Performed By: #### L 100.0100 #### [facility] [address] [place], [address] Neutrophils/100 WBC (Bld) 59.9 % Normal 47-70 [facility] Comment on above: Performed By: #### L 100.0100 #### [facility] [address] [place], [address] NRBC, FLAGGED 0 % Normal 0-5 [facility] Comment on above: Performed By: #### L 100.0100 #### [facility] [address] [place], [address] Platelet mean volume (Bld) [Entitic vol] 10.9 fL Normal 6.2-12.0 [facility] Comment on above: Performed By: #### L 100.0100 #### [facility] [address] [place], [address] Platelets (Bld) [#/Vol] 172 10*3/uL Normal 150-450 [facility] Comment on above: Performed By: #### L 100.0100 #### [facility] [address] [place], [address] RBC (Bld) [#/Vol] 5.15 M/mm3 Normal 4.6-6.2 [facility] Comment on above: Performed By: #### L 100.0100 #### [facility] [address] [place], [address] RDW SD 37.4 fl Normal 35.1-43.9 [facility] Comment on above: Performed By: #### L 100.0100 #### [facility] [address] [place], [address] WBC (Bld) [#/Vol] 7.3 10*3/uL Normal 4.4-11.0 [facility] Comment on above: Performed By: #### L 100.0100 #### [facility] [address] [place], [address] Chest 1 View (Portable)on Chest 1 View (Portable) [facility] Services [address] [place] [address] Chest 1 View (Portable) MR#: [id number] Acct: [id number] Name: KVNG MADSEN Rep #: [id number] : 1980 M 39 From: Gagandeep Barfield MD PCP: Lesli Weber MD Status: REG ER Study: Chest 1 View (Portable) Date of Exam: 11/18/19 Exam# [id number] Ordering Dr: Dante Marcus DO STUDY: X-RAY CHEST REASON FOR EXAM: Male, 39 years old. CHEST PAINS TECHNIQUE: Single AP portable view of the chest. COMPARISON: None. FINDINGS: There is an ill-defined nodule in the left lung base measures approximately 2 cm for which further evaluation by CT scan may be warranted to exclude a neoplasm. There is no demonstrated pleural abnormality. Normal size heart. Normal mediastinum and sally. Normal visualized pulmonary arteries. Normal visualized aortic arch and descending thoracic aorta. Normal visualized thoracic spine. Normal visualized ribs, clavicles, and shoulders. There is no demonstrated abnormality of the visualized soft tissue structures of the upper abdomen. RAD/Chest 1 View (Portable) IMPRESSION: There is an ill-defined nodule in the left lung base measures approximately 2 cm for which further evaluation by CT scan may be warranted to exclude a neoplasm. Electronically Signed: Doniswilda Barfield, at 13:26 EST Tel , Service support , CC: Lesli Weber MD; Dante Marcus DO Supervisor Core Drilling: Signed Normal [facility] Chest WITH Contraston 2018 Chest WITH Contrast [facility] Imaging Services [address] [place] [address] Chest WITH Contrast MR#: [id number] Acct: [id number] Name: KVNG MADSEN Rep #: [id number] : 1980 M 39 From: Cam Curran MD PCP: Lesli Weber MD Status: REG ER Study: Chest WITH Contrast Date of Exam: 11/18/19 Exam# [id number] Ordering Dr: Dante Marcus DO STUDY: CT CHEST WITH CONTRAST REASON FOR EXAM: Male, 39 years old. Left-sided chest pain. RADIATION DOSAGE (If Supplied By Facility): CTDIvol = ( 15.96 ) mGy, DLP = ( 629.74 ) mGycm TECHNIQUE: Transaxial imaging was performed following intravenous administration of 100 ml of Isovue-300 contrast material. Coronal and sagittal reformatted images were created. Individualized dose optimization techniques were used for this CT. COMPARISON: None FINDINGS: There are no pulmonary infiltrates or pleural effusions. There is a 1.9 cm calcified granuloma in the left lower lobe. There are no additional pulmonary nodules. There is no pneumothorax. The heart and pericardium are within normal limits. There is no thoracic lymphadenopathy. There is no evidence of thoracic aortic aneurysm. Images through the upper abdomen demonstrate no significant abnormality. There are no destructive osseous lesions. CT/Chest WITH Contrast IMPRESSION: 1.9 cm calcified granuloma in the left lower lobe. Otherwise, unremarkable contrast-enhanced CT of the chest. Electronically Signed: Cam Curran, at 14:33 EST Tel , Service support , CC: Lesli Weber MD; Dante Marcus DO Supervisor Core Drilling: Signed Normal [facility] Emergency Department Summary on 11-18-2019 Emergency Department Summary [facility] Medical Records Department [address] [place] [address] Emergency Department Summary 11/18/19 1232 MR#: [id number] Acct: [id number] Name: KVNG MADSEN Rep #: [id number] : 1980 39 From: Dante Marcus DO PCP: Lesli Weber MD Status: REG ER - ER Visit Summary Date of Service: 11/18/19 Chief Complaint: Chest pain History of Present Illness: The patient is a 39 M who presents with chest pain that has been waxing and waning over the past 2 days. Patient describes it as aching. Patient states pain is over the left chest. Patient admits to some generalized weakness and lightheadedness. Patient admits to some shortness of breath with this. Patient also admits to nausea but denies any vomiting. Patient denies any diaphoresis. Patient denies any cough or fevers. Patient denies any cardiac or PE risk factors. Physical Examination: Vital signs are stable. Patient is afebrile. Patient is in no acute distress. Oral mucosa is pink and moist. Neck is supple. Trachea is midline. There is no JVD noted. Heart was regular rate and rhythm. Lungs are clear and equal bilateral. Abdomen is soft. Bowel sounds are normal. There is no tenderness. There is no guarding noted. Skin is warm dry. Cranial nerves II through XII are intact. There are no focal motor or sensory deficits noted. Extremities are intact. There is no calf tenderness or edema. Test Results: EKG shows AV normal sinus rhythm with a rate of 96. There are no acute ST or T wave changes. There are no prior EKGs available for comparison. CBC, basic metabolic profile, troponin were obtained were all within normal limits. PA and lateral chest x-ray was obtained. There is a left lung nodule noted measuring approximately [address] was recommended for further evaluation. CT scan of the chest was obtained. There is a calcified granuloma measuring 1.9 cm in the left lower lobe. This was interpreted by the radiologist. Emergency Department Course and Treatment: Patient was given aspirin and sublingual nitroglycerin. Patient was feeling better on reevaluation. Patient has a HEART score of 1. Patient was advised that this is low risk for acute cardiac event. Patient was instructed to follow-up with his primary care physician in 5 to 7 days for further evaluation of his chest pain. Patient understood and was agreeable with the plan. All questions were answered. Disposition: Discharge home Impression: Chest pain of uncertain etiology This note was generated with [employer] dictation software. It may contain incorrect words, spelling, and punctuation that were not noted in review of the chart prior to signing ED Disposition - Plan for ED Patient: Disposition: Home or Assisted Living Diagnosis: Chest pain of uncertain etiology Instructions: CHEST PAIN, Uncertain Cause Referrals: Jovan Phillips DO [COURTESY STAFF PHYSICIAN] - 5-7 Days What to do if you have Problems For any increased pain, shortness of breath, bleeding, nausea or vomiting, chest pain, or any unexpected problems, contact your Primary Care Provider. Call [facility] ([phone]) or report to the closest Emergency Room. Call 911 if necessary. 11/18/19 6300 Date Dantesuzanne Fernandomaryana DO Cosigner Signature (If Indicated): Date CC: Lesli Weber MD Normal [facility] Troponin-Ion 11-18-2019 Troponin I.cardiac [Mass/Vol] ng/mL Normal <0.045 [facility] Comment on above: Result Comment: TROP ONIN-I EXPECTED VALUES <0.045 Negative 0.045 - 0.590 Consistent with Cardiac Damage > OR = 0.600 Critical Value Not every elevated troponin is indicative of NE. These values should be used with clinical judgement in examining the patient's clinical picture for diagnosis. To establish a diagnosis of NE versus myocardial injury, there must be a demonstrated rise and/or fall in the troponin values, in addition to ischemic symptoms, EKG changes, new regional wall motion abnormality, and/or angiographical evidence. PLEASE NOTE: REFERENCE RANGES EDITED 18 Performed By: #### L 500.2500, L501.4010 #### [facility] [address] [place], [place], [address] Vital Signs Date Time Vital Sign Value Performing Clinician Sofia calderón 01-16-2025 08:01-0500 Body height 174 cm Michelle Antony APRN.CNP Work Phone: [facility] 01-16-2025 08:01-0500 Body mass index (BMI) [Ratio] 26.07 kg/m2 Michelle Antony APRN.CNP Work Phone: [facility] 01-16-2025 08:01-0500 Body weight 78.93 kg Michelle Antony HIGH RIGGER.EVENT MANAGER Work Phone: [facility] 01-16-2025 08:01-0500 Diastolic blood pressure 62 mm[Hg] Michelle Antony HIGH RIGGER.EVENT MANAGER Work Phone: [facility] 01-16-2025 08:01-0500 Heart rate 89 /min Michelle Antony HIGH RIGGER.EVENT MANAGER Work Phone: [facility] 01-16-2025 08:01-0500 Respiratory rate 14 /min Michelle Antony HIGH RIGGER.EVENT MANAGER Work Phone: [facility] 01-16-2025 08:01-0500 SaO2% (BldA) [Mass fraction] 95 % Michelle Antony HIGH RIGGER.EVENT MANAGER Work Phone: [facility] 01-16-2025 08:01-0500 Systolic blood pressure 100 mm[Hg] Michelle Antony HIGH RIGGER.EVENT MANAGER Work Phone: [facility] 11-12-2022 13:11-0500 Body weight 102.88 kg Michelle Zurawick HIGH RIGGER.EVENT MANAGER Work Phone: [facility] 11-12-2022 13:11-0500 Diastolic blood pressure 78 mm[Hg] Michelle Zurawick HIGH RIGGER.EVENT MANAGER Work Phone: [facility] 11-12-2022 13:11-0500 Heart rate 72 /min Michelle Zurawick HIGH RIGGER.EVENT MANAGER Work Phone: [facility] 11-12-2022 13:11-0500 Respiratory rate 12 /min Michelle Zurawick HIGH RIGGER.EVENT MANAGER Work Phone: [facility] 11-12-2022 13:11-0500 Systolic blood pressure 110 mm[Hg] Michelle Zurawick HIGH RIGGER.EVENT MANAGER Work Phone: [facility] 09-01-2022 19:10-0400 Body weight 99.34 kg Aj Angel MD Work Phone: [facility] 09-01-2022 19:10-0400 Diastolic blood pressure 92 mm[Hg] Aj Angel MD Work Phone: [facility] 09-01-2022 19:10-0400 Heart rate 80 /min Aj Angel MD Work Phone: [facility] 09-01-2022 19:10-0400 Systolic blood pressure 118 mm[Hg] Aj Angel MD Work Phone: [facility] 03-14-2022 09:59-0400 Body weight 100.25 kg Svetlana Older HIGH RIGGER.EVENT MANAGER Work Phone: [facility] 03-14-2022 09:59-0400 Diastolic blood pressure 88 mm[Hg] Svetlana Older HIGH RIGGER.EVENT MANAGER Work Phone: [facility] 03-14-2022 09:59-0400 Heart rate 72 /min Svetlana Older HIGH RIGGER.EVENT MANAGER Work Phone: [facility] 03-14-2022 09:59-0400 Respiratory rate 16 /min Svetlana Older HIGH RIGGER.EVENT MANAGER Work Phone: [facility] 03-14-2022 09:59-0400 Systolic blood pressure 130 mm[Hg] Svetlana Older HIGH RIGGER.EVENT MANAGER Work Phone: [facility] Encounters Encounter Date Encounter Type Care Provider Facility Start: 07-14-2025 End: 07-18-2025 Refill Michelle Antony HIGH RIGGER.EVENT MANAGER Work Phone: [facility] Comment on above: Refill Request Start: 03-30-2025 End: 03-30-2025 Refill Hao Washington DO Work Phone: [facility] Comment on above: Refill Request Start: 01-18-2025 End: 01-18-2025 Follow-up encounter Michelle Antony HIGH RIGGER.EVENT MANAGER Work Phone: [facility] Start: 01-16-2025 Encounter for genera l adult medical examination without abnormal findings ALLEGRA BLACKMAN [facility] Start: 01-16-2025 End: 01-16-2025 ambulatory MICHELLE ANTONY Facility:[facility] Start: 01-16-2025 End: 01-16-2025 Office outpatient visit 25 minutes Michelle Antony HIGH RIGGER.EVENT MANAGER Work Phone: [facility] [place] Comment on above: Encounter for [facility] ss examination in adult (Primary Dx); Hyperlipidemia, unspecified hyperlipidemia type; LISBETH (generalized anxiety disorder); Gastroesophageal reflux disease with esophagitis, unspecified whether hemorrhage; Migraine headaches; Screening for depression Start: 01-16-2025 End: 01-16-2025 Patient encounter status Michelle Antony HIGH RIGGER.EVENT MANAGER Work Phone: [facility] Start: 12-16-2024 End: 12-16-2024 Refill Allegra Blackman HIGH RIGGER.EVENT MANAGER Work Phone: [facility]rology Comment on above: Refill Request Start: 11-30-2024 End: 11-30-2024 Refill Hao Washington DO Work Phone: [facility] Comment on above: Refill Request Start: 11-12-2024 End: 11-14-2024 Refill Allegra Blackman HIGH RIGGER.EVENT MANAGER Work Phone: Neurology Comment on above: Refill Request Start: 10-10-2024 End: 10-10-2024 [facility] Facility:[facility] Start: 10-10-2024 End: 10-10-2024 [facility] HIGH RIGGER.EVENT MANAGER Work Phone: [facility] Comment on above: LISBETH (generalized anx iety disorder) (Primary Dx) Start: 09-26-2024 End: 09-26-2024 Orders Only Allegra Blackman HIGH RIGGER.EVENT MANAGER Work Phone: Neurology Comment on above: CISCO (obstructive sle ep apnea) (Primary Dx) Start: 09-12-2024 End: 09-14-2024 ambulatory Allegra Blackman HIGH RIGGER.EVENT MANAGER Work Phone: Neurology Comment on above: Headache medication Start: 09-03-2024 End: 09-05-2024 Refill Michelle Antony HIGH RIGGER.EVENT MANAGER Work Phone: [facility] [place] Comment on above: Refill Request Start: 08-29-2024 End: 09-15-2024 [facility] Work Phone: Neurology Start: 08-23-2024 End: 08-23-2024 ambulatory Allegra Blackman HIGH RIGGER.EVENT MANAGER Work Phone: Neurology Comment on above: Migraine headaches ( Primary Dx); Other fatigue Start: 08-23-2024 End: 08-23-2024 Telemedicine consultation with patient Allegra Blackman HIGH RIGGER.EVENT MANAGER Work Phone: Neurology Start: 08-04-2024 End: 08-04-2024 ambulatory Hao Baer Washington DO Work Phone: [facility] [place] Comment on above: Migraine relief Start: 08-04-2024 End: 08-06-2024 Telephone encounter Hao Washington DO Work Phone: [facility] [place] Comment on above: Patient Question (Mi graine/Headache) Start: 06-21-2024 Refill Michelle Antony HIGH RIGGER.EVENT MANAGER Work Phone: [facility] [place] Comment on above: Refill Request Start: 05-03-2024 Refill Michelle Antony HIGH RIGGER.EVENT MANAGER Work Phone: [facility] [place] Comment on above: Refill Request Start: 02-11-2024 ambulatory Michelle Antony HIGH RIGGER.EVENT MANAGER Work Phone: [facility] [place] Comment on above: Allergy medication Start: 08-28-2023 Refill Hao Rollins son DO Work Phone: [facility] [place] Comment on above: Refill Request Start: 07-13-2023 Refill Hao Rollins son DO Work Phone: [facility] [place] Comment on above: Refill Request Start: 06-28-2023 Refill Michelle Antony HIGH RIGGER.EVENT MANAGER Work Phone: [facility] [place] Comment on above: Refill Request; Refi ll Request Start: 06-11-2023 Refill Michelle Antony HIGH RIGGER.EVENT MANAGER Work Phone: [facility] [place] Comment on above: Refill Request Start: 05-29-2023 Refill Hao candelario DO Work Phone: [facility] [place] Comment on above: Refill Request; Refi ll Request Start: 05-18-2023 End: 05-18-2023 [facility] Armando Gordillo HIGH RIGGER.EVENT MANAGER Work Phone: [facility] [place] Comment on above: LISBETH (generalized anx iety disorder) (Primary Dx) Start: 04-24-2023 Telephone encounter Hao morgan DO Work Phone: [facility] [place] Comment on above: Results Start: 03-11-2023 Refill Svetlana Older HIGH RIGGER .EVENT MANAGER Work Phone: [facility] [place] Comment on above: Refill Request Start: 03-04-2023 Refill Michelle Antony HIGH RIGGER.EVENT MANAGER Work Phone: [facility] [place] Comment on above: Refill Request Start: 01-11-2023 Refill Maya Older HIGH RIGGER .EVENT MANAGER Work Phone: [facility] [place] Comment on above: Refill Request Start: 12-22-2022 Refill Svetlana Older HIGH RIGGER .EVENT MANAGER Work Phone: [facility] [place] Comment on above: Refill Request Edel 2.5 Start: 11-27-2022 ambulatory Lesli Peralta Work Phone: [facility] [place] Comment on above: Mounjaro Start: 11-27-2022 E-mail encounter fro m caregiver Lesli Weber MD Work Phone: [facility] [place] Start: 11-27-2022 Telephone encounter Lesli garrido MD Work Phone: [facility] [place] Comment on above: Insurance Authorizat ion (Mounjaro ) Opened In Error Start: 11-24-2022 ambulatory Michelle Antony HIGH RIGGER.EVENT MANAGER Work Phone: [facility] [place] Comment on above: Mounjaro increase Start: 11-13-2022 Telephone encounter Michelle johnson HIGH RIGGER.EVENT MANAGER Work Phone: [facility] [place] Comment on above: Results Start: 11-12-2022 End: 11-12-2022 Patient encounter procedure Michelle Woods HIGH RIGGER.EVENT MANAGER Work Phone: [facility] [place] Comment on above: Fatigue, unspecified type (Primary Dx); Elevated BP without diagnosis of hypertension; Weight loss Start: 10-12-2022 Refill Svetlana Older HIGH RIGGER .EVENT MANAGER Work Phone: [facility] [place] Comment on above: Refill Request Start: 09-02-2022 Refill Lesli Peralta Work Phone: [facility] [place] Comment on above: Refill Request Start: 09-01-2022 End: 09-01-2022 Patient encounter procedure Aj Angel MD Work Phone: [facility] [place] Comment on above: Impacted cerumen of right ear (Primary Dx) Start: 09-01-2022 Telephone encounter Aj Angel MD Work Phone: [facility] [place] Comment on above: Patient Update Start: 05-01-2022 Telephone encounter Lesli garrido MD Work Phone: [facility] [place] Comment on above: requesting medicatio n Start: 04-30-2022 Refill Svetlana Older HIGH RIGGER .EVENT MANAGER Work Phone: Internal [facility] [place] Comment on above: Refill Request Start: 03-17-2022 Refill Svetlana Older HIGH RIGGER .EVENT MANAGER Work Phone: [facility] [place] Comment on above: Refill Request Start: 03-14-2022 End: 03-14-2022 Patient encounter procedure Svetlana Older HIGH RIGGER.EVENT MANAGER Work Phone: Internal [facility] [place] Comment on above: LISBETH (generalized anx iety disorder) (Primary Dx); Headaches Start: 03-06-2022 ambulatory Svetlana Older HIGH RIGGER .EVENT MANAGER Work Phone: [facility] [place] Comment on above: Effexor Refill Request Start: 02-21-2022 ambulatory [facility] Provider [facility] [place] Comment on above: ulbrely Start: 02-21-2022 E-mail encounter bola lemons caregiver [facility] Provider [facility] [place] Start: 02-20-2022 Telephone encounter Lesli garrido MD Work Phone: Internal [facility] [place] Comment on above: Insurance Authorizat ion Start: 11-08-2021 Telephone encounter Luz maguire HIGH RIGGER.EVENT MANAGER Work Phone: Family Medicine [place] Comment on above: Appointment; Patient Update Start: 09-10-2021 End: 09-10-2021 Subsequent hospital visit by physician [facility] [place] Work Phone: Radiology Comment on above: Suspected COVID-19 v irus infection [Z20.822] Start: 06-24-2021 End: 06-24-2021 Subsequent hospital visit by physician Xr [facility] [place] Work Phone: Radiology Comment on above: Right elbow pain [M2 5.521] Procedures Date Procedure Procedure Detail Performing Clinician Start: 01-16-2025 Adult depression screening assessment Michelle Antony HIGH RIGGER.EVENT MANAGER Work Phone: Start: 01-16-2025 Lipid 1996 panel - S livia or Plasma Michelle Antony HIGH RIGGER.EVENT MANAGER Work Phone: Start: 12-07-2023 Adult depression screening assessment Armando Gordillo HIGH RIGGER.EVENT MANAGER Work Phone: Start: 12-07-2023 Lipid 1996 panel - S livia or Plasma Michelle Antony HIGH RIGGER.EVENT MANAGER Work Phone: Start: 11-12-2022 Lipid 1996 panel - S livia or Plasma Hao Washington DO Work Phone: Start: 01-23-2022 Adult depression screening assessment [facility] Provider Start: 09-10-2021 Radiologic exam ches t 2 views Elizabeth Christopher PA-C Work Phone: Start: 06-24-2021 Radex elbow 2 views Maya Roth HIGH RIGGER.EVENT MANAGER Work Phone: Start: 11-22-2019 12 lead ECG Plan of Treatment Date Care Activity Detail Author Start: 01-16-2030 Lipid panel Lipid Screening [facility] Start: 12-07-2028 Lipid panel Lipid Screening [facility] Start: 11-12-2027 Lipid 1996 panel - S livia or Plasma Lipid Screening [facility] Start: 11-12-2027 LIPID SCREEN LIPID SCREEN [facility] Start: 01-16-2026 Covid-19 Vaccine ( season) Covid-19 Vaccine () [facility] Comment on above: Postponed from 07/24 (Declined at this time) Start: 01-16-2026 Depression Screening Depression Scre ening [facility] Start: 01-16-2026 Hepatitis B Vaccine (1 of 3 - 19+ 3-dose series) Hepatitis B Vaccine (1 of 3 - 19+ 3-dose series) [facility] Comment on above: Postponed from 09/25 (Declined at this time) Start: 01-16-2026 Urine microalbumin profile DTaP,Tdap,Td Vaccine (2 - Tdap) [facility] Comment on above: Postponed from 11/23 (Declined at this time) Start: 07-24-2025 Influenza vaccination C [facility] Start: 05-22-2025 Influenza vaccination Influenza Vacc ine (#1) [facility] Comment on above: Postponed from 07/24 (Declined at this time) Start: 01-16-2025 End: 04-17-2025 CBC W Auto Differential panel - Blood [facility] Comment on above: Expected: 01/16/2025 , Expires: 04/17/2025 Start: 01-16-2025 End: 04-17-2025 Comprehensive metabolic 2000 panel - Serum or Plasma [facility] Comment on above: Expected: 01/16/2025 , Expires: 04/17/2025 Start: 01-16-2025 End: 04-17-2025 Hemoglobin A1c in Blood [facility] Comment on above: Expected: 01/16/2025 , Expires: 04/17/2025 Start: 01-16-2025 End: 04-17-2025 Lipid 1996 panel - Serum or Plasma [facility] Work Phone: Comment on above: Expected: 01/16/2025 , Expires: 04/17/2025 Start: 12-21-2024 End: 12-21-2024 Patient encounter procedure 12/21/2024 8:00 AM EST Office Visit Family Medicine [place] [address] [place] [address] Michelle Antony, HIGH RIGGER.EVENT MANAGER [address] [place] [id number] Annual Wellness Visit Family [facility] Comment on above: Annual Wellness Visi t Start: 12-14-2024 End: 12-14-2024 Patient encounter procedure 12/14/2024 7:00 AM EST Office Visit [facility] [place] [address] [facility] [place] [address] Michelle Antony, HIGH RIGGER.EVENT MANAGER [address] [place] [address] Annual Wellness Visit [facility] Comment on above: Annual Wellness Visi t Start: 12-07-2024 Covid-19 Vaccine () Covid-19 Vaccine () [facility] Comment on above: Postponed from 07/24 (Declined at this time) Start: 12-07-2024 Depression Screening Depression Scre ening [facility] Start: 11-23-2024 Urine microalbumin profile DTaP,Tdap,Td Vaccine (2 - Tdap) [facility] Start: 11-22-2024 LIPID SCREEN LIPID SCREEN [facility] Start: 09-13-2024 End: 09-13-2024 Patient encounter procedure 09/13/2024 10:00 AM EDT Office Visit Neurology [address] [place] [address] [facility] Comment on above: [facility] Start: 08-23-2024 End: 08-23-2024 ambulatory 08/23/2024 7:00 AM EDT [facility] [address] [address] Allegra Blackman, HIGH RIGGER.EVENT MANAGER [address] [place] [address] Migraine headaches [G43.899] Neurology Comment on above: Migraine headaches [ G43.449] Start: 07-24-2024 Covid-19 Vaccine ( season) Covid-19 Vaccine () [facility] Start: 07-24-2024 Covid-19 Vaccine () Covid-19 Vaccine () [facility] Start: 07-24-2024 Influenza vaccination [facility] Start: 05-22-2024 Influenza vaccination Influenza Vacc ine (#1) [facility] Comment on above: Postponed from 07/24 (Declined at this time) Start: 11-23-2023 Behavioral Health Screening Behavioral Health Screening [facility] Start: 11-12-2023 Urine microalbumin profile [facility] Comment on above: Postponed from 09/25 (Declined at this time) Start: 07-24-2023 Influenza vaccination C [facility] Start: 05-22-2023 Influenza vaccination INFLUENZA (#1) [facility] Comment on above: Postponed from 07/24 (Declined at this time) Start: 01-23-2023 Adult depression screening assessment DEPRESSION SCREENING [facility] Start: 01-23-2023 COVID-19 VACCINE (#1) COVID-19 VACCI NE (#1) [facility] Comment on above: Postponed from 09/25 (Declined at this time) Postponed from 03/25 (Declined at this time) Start: 01-23-2023 COVID-19 VACCINE (1) COVID-19 VACCIN E (1) [facility] Comment on above: Postponed from 09/25 (Declined at this time) Start: 01-23-2023 HEPATITIS C SCREENING HEPATITIS C SC BLAKE [facility] Comment on above: Postponed from 09/25 (Declined at this time) Start: 01-23-2023 HIV SCREENING HIV SCREENING [facility] Comment on above: Postponed from 09/25 (Declined at this time) Start: 01-23-2023 ONE PNEUMOVAX PRIOR TO AGE 65 ONE PNEUMOVAX PRIOR TO AGE 67 [facility] Comment on above: Postponed from 09/25 (Declined at this time) Start: 11-23-2022 DEPRESSION ASSESSMENT DEPRESSION ASS ESSMENT [facility] Start: 11-12-2022 End: 01-12-2023 25-hydroxyvitamin D3 [Mass/volume] in Serum or Plasma [facility] Work Phone: Comment on above: Expected: 11/12/2022 , Expires: 01/12/2023 Start: 11-12-2022 End: 01-12-2023 Cobalamin (Vitamin B12) [Mass/volume] in Serum or Plasma [facility] Work Phone: Comment on above: Expected: 11/12/2022 , Expires: 01/12/2023 Start: 11-12-2022 End: 01-12-2023 Comprehensive metabolic 2000 panel - Serum or Plasma [facility] Work Phone: Comment on above: Expected: 11/12/2022 , Expires: 01/12/2023 Start: 11-12-2022 End: 01-12-2023 Ferritin [Mass/volume] in Serum or Plasma [facility] Work Phone: Comment on above: Expected: 11/12/2022 , Expires: 01/12/2023 Start: 11-12-2022 End: 01-12-2023 Hemoglobin A1c in Blood [facility] Work Phone: Comment on above: Expected: 11/12/2022 , Expires: 01/12/2023 Start: 11-12-2022 End: 01-12-2023 Iron and Iron binding capacity panel - Serum or Plasma [facility] Work Phone: Comment on above: Expected: 11/12/2022 , Expires: 01/12/2023 Start: 11-12-2022 End: 01-12-2023 Lipid 1996 panel - Serum or Plasma [facility] Work Phone: Comment on above: Expected: 11/12/2022 , Expires: 01/12/2023 Start: 11-12-2022 End: 01-12-2023 Thyrotropin [Units/volume] in Serum or Plasma TSH BLD Lab Routine Fatigue, unspecified type Expected: 11/12/2022, Expires: 01/12/2023 [facility] Work Phone: Comment on above: Expected: 11/12/2022 , Expires: 01/12/2023 Start: 10-25-2022 Urine microalbumin profile DTAP,TDAP,TD (1 - Tdap) [facility] Comment on above: Postponed from 09/25 (Declined at this time) Start: 07-24-2022 Influenza vaccination INFLUENZA (Sea son Ended) [facility] Start: 11-23-2021 DEPRESSION ASSESSMENT DEPRESSION ASS ESSMENT [facility] Start: 2009 HPV Vaccine (1 - 3-d ose SCDM series) HPV Vaccine (1 - 3-dose SCDM series) [facility] Start: 2001 Hepatitis B Vaccine (1 of 3 - 19+ 3-dose series) Hepatitis B Vaccine (1 of 3 - 19+ 3-dose series) [facility] Start: 2000 Depression Screening Depression Scre ening [facility] Start: 2000 HEPATITIS C SCREENING HEPATITIS C SC REEJOVANA [facility] Start: 2000 HIV SCREENING HIV SCREENING [facility] Start: 03-25-1983 COVID-19 VACCINE (#1) COVID-19 VACCI NE (#1) [facility] Start: 1982 HEPATITIS B (1 of 3 - 3-dose series) HEPATITIS B (1 of 3 - 3-dose series) [facility] Start: 1982 Hepatitis B Vaccine (1 of 3 - 3-dose series) Hepatitis B Vaccine (1 of 3 - 3-dose series) [facility] End: 08-23-2025 HOME SLEEP APNEA TEST (HSAT) HOME SLEEP APNEA TEST (HSAT) Procedures Routine Other fatigue 1 Occurrences starting 08/23/2024 until 08/23/2025 [facility] Work Phone: Comment on above: 1 Occurrences starti ng 08/23/2024 until 08/23/2025 Removal impacted cer umen instrumentation unilat REMOVAL OF IMPACTED CERUMEN - INSTRUMENTATION Procedures Routine Impacted cerumen of right ear Ordered: 09/01/2022 [facility] Work Phone: Comment on above: Ordered: 09/01/2022 [facility] Payers Date Payer Category Payer Private Health Insurance MMO SU[employer] PPO [id number] 2019 Unknown MMO MMO [employer] [id number] 2019-Present [phone] [address] [place] [address] PPO [id number] 2019 Unknown [id number] 2019 Unknown [id number] Social History Date Type Detail Facility Start: 01-22-2012 End: 09-01-2022 Tobacco smoking status NHIS Never smoked tobacco [facility] Work Phone: End: 12-24-2011 History of tobacco use User of smokeless tobacco [facility] Work Phone: Start: 01-23-2022 End: 01-16-2025 Alcohol intake Current drinker of alcohol (finding) [facility] Start: 11-24-2019 End: 10-04-2020 History SDOH Alcohol Frequency 1 [facility] Start: 10-04-2020 End: 05-18-2023 History SDOH Alcohol Std Drinks 98 [facility] Start: 11-24-2019 End: 09-23-2021 History SDOH Social Connections Membership 2 [facility] Start: 11-24-2019 End: 06-26-2023 History SDOH Social Connections Living 3 [facility] Start: 10-04-2020 History SDOH Physical Activity MPS 4 [facility] Start: 11-24-2019 End: 10-04-2020 History SDOH Stress 5 [facility] Start: 10-03-2020 Education 14 [facility] Start: 1980 Sex Assigned At Male [facility] Start: 05-25-2021 End: 09-01-2022 Exposure to SARS-CoV-2 (event) Not sure [facility] Start: 01-22-2012 End: 09-01-2022 Tobacco use and exposure Former smokeless tobacco user [facility] Start: 04-17-2023 End: 05-18-2023 History of Social function [facility] Start: 04-17-2023 End: 05-18-2023 Social connection and isolation panel [facility] Start: 10-24-2012 In a typical week, how many times do you talk on the telephone with family, friends, or neighbors? Patient refused [facility] Are you now , , , , never or living with a partner? Refused [facility] (I/We) worried wheth er (my/our) food would run out before (I/we) got money to buy more. DK or Refused [facility] Start: 06-21-2021 Gender identity Identifies as male gender (finding) [facility] Start: 06-21-2021 Sexual orientation Heterosexual (finding) [facility] Do you belong to any clubs or organizations such as synagogue groups, unions, fraternal or athletic groups, or school groups? No [facility] Are you now , , , , never or living with a partner? [facility] How often to you hav e a drink containing alcohol? Never [facility] Do you feel stress - tense, restless, nervous, or anxious, or unable to sleep at night because your mind is troubled all the time - these days [OSQ] Very much [facility] (I/We) worried wheth er (my/our) food would run out before (I/we) got money to buy more. Never true [facility] Start: 08-11-2021 End: 09-10-2021 Exposure to SARS-CoV-2 (event) Yes [facility] Do you feel stress - tense, restless, nervous, or anxious, or unable to sleep at night because your mind is troubled all the time - these days [OSQ] To some extent [facility] Functional Status Date Assessment Result Facility 11-09-2014 Are you deaf, or do you have serious difficulty hearing No 11/09/2014 7:35 AM Emiliana Monteiro LPN No [facility] 11-09-2014 Are you blind, or do you have serious difficulty seeing, even when wearing glasses No 11/09/2014 7:35 AM Emiliana Monteiro LPN No [facility] 11-09-2014 Do you have serious difficulty walking or climbing stairs No 11/09/2014 7:35 AM Emiliana Monteiro LPN No [facility] 11-09-2014 Do you have difficul ty dressing or bathing No 11/09/2014 7:35 AM Emiliana Monteiro LPN No [facility] 11-09-2014 Because of a physica l, mental, or emotional condition, do you have difficulty doing errands alone such as visiting a physician's office or shopping No 11/09/2014 7:35 AM Emiliana Monteiro LPN No [facility] Mental Status Date Assessment Result Facility 11-09-2014 Because of a physica l, mental, or emotional condition, do you have serious difficulty concentrating, remembering, or making decisions No 11/09/2014 7:35 AM Emiliana Monteiro LPN No [facility] Clinical Notes 06-24-2021 to 07-18-2025 Telephone Encounter - Barbara Kapadia MA - 07/18/2025 10:12 AM EDTTelephone Encounter - Barbara Kapadia MA - 07/18/2025 10:12 AM Michelle Fox APRN.EVENT MANAGER - 01/16/2025 7:50 AM EST Note Date & Type Note Facility 07-18-2025 Telephone encounter Note Prescription Refill Information The patient has been identified by name and date of : Yes Caregiver verified no other encounters exist for this prescription request: Yes Caregiver confirmed with patient/requestor that no other refills are due, in the near future, with this provider at this time: Yes Requested Prescriptions Pending Prescriptions Disp Refills topiramate (TOPAMAX) 50 mg tablet [Pharmacy Med Name: Topiramate 50 MG Oral Tablet] 60 tablet 0 Sig: Take 2 tablets by mouth once daily Barbara Kapadia MA July 18, 2025 10:12 AM [facility] 07-18-2025 Miscellaneous Notes Prescription Refill Information The patient has been identified by name and date of : Yes Caregiver verified no other encounters exist for this prescription request: Yes Caregiver confirmed with patient/requestor that no other refills are due, in the near future, with this provider at this time: Yes Requested Prescriptions Pending Prescriptions Disp Refills topiramate (TOPAMAX) 50 mg tablet [Pharmacy Med Name: Topiramate 50 MG Oral Tablet] 60 tablet 0 Sig: Take 2 tablets by mouth once daily Barbara Kapadia MA July 18, 2025 10:12 AM documented in this encounter [facility] 03-30-2025 Telephone encounter Note Prescription Refill Information The patient has been identified by name and date of : Yes Caregiver verified no other encounters exist for this prescription request: Yes Caregiver confirmed with patient/requestor that no other refills are due, in the near future, with this provider at this time: Yes The last office visit in the department: 01/16/25 Does the patient have a future office visit with this provider/department: No Requested Prescriptions Pending Prescriptions Disp Refills topiramate (TOPAMAX) 50 mg tablet 60 tablet 2 Sig: Take 2 tablets by mouth once daily. Peri Carr LPN March 30, 2025 9:36 AM [facility] 03-30-2025 Miscellaneous Notes Prescription Refill Information The patient has been identified by name and date of : Yes Caregiver verified no other encounters exist for this prescription request: Yes Caregiver confirmed with patient/requestor that no other refills are due, in the near future, with this provider at this time: Yes The last office visit in the department: 01/16/25 Does the patient have a future office visit with this provider/department: No Requested Prescriptions Pending Prescriptions Disp Refills topiramate (TOPAMAX) 50 mg tablet 60 tablet 2 Sig: Take 2 tablets by mouth once daily. Peri Carr LPN March 30, 2025 9:36 AM documented in this encounter [facility] 01-18-2025 Telephone encounter Note Patient notified with results. Patient verbalizes understanding. Kayleigh Machado LPN [facility] 01-18-2025 Miscellaneous Notes Patient notified with results. Patient verbalizes understanding. Kayleigh Machado LPN Please call patient and let him know that lab work results overall look good. Lipid panel (mainly LDL which is the bad cholesterol) is higher than I would like. I would recommend taking an OTC omega 3/ fish oil supplement and focus on diet control by increasing green leafy veggies, decreased red meat & fried foods, and increase exercise. No need to start cholesterol lowering medication currently due to cardiovascular risk calculation is only at 1.7 %. Thank you, Michelle Antony APRN.GRISELDA The 10-year ASCVD risk score (Caterina ARCE, et al., 2019) is: 1.7% Values used to calculate the score: Age: 44 years Sex: Male Is Non- : No Diabetic: No Tobacco smoker: No Systolic Blood Pressure: 100 mmHg Is BP treated: No HDL Cholesterol: 39 mg/dL Total Cholesterol: 234 mg/dL documented in this encounter [facility] 01-18-2025 Telephone encounter Note Please call patient and let him know that lab work results overall look good. Lipid panel (mainly LDL which is the bad cholesterol) is higher than I would like. I would recommend taking an OTC omega 3/ fish oil supplement and focus on diet control by increasing green leafy veggies, decreased red meat & fried foods, and increase exercise. No need to start cholesterol lowering medication currently due to cardiovascular risk calculation is only at 1.7 %. Thank you, Michelle Antony APRN.EVENT MANAGER The 10-year ASCVD risk score (Caterina ARCE, et al., 2019) is: 1.7% Values used to calculate the score: Age: 44 years Sex: Male Is Non- : No Diabetic: No Tobacco smoker: No Systolic Blood Pressure: 100 mmHg Is BP treated: No HDL Cholesterol: 39 mg/dL Total Cholesterol: 234 mg/dL [facility] 01-16-2025 Note HNO ID: [id number] Author: MICHELLE ANTONY APRN.EVENT MANAGER Service: ? Author Type: Nurse Practitioner Type: Progress Notes Filed: 01/16/2025 08:28 Note Text: Chief Complaint Patient presents with: Physical HPI Kvng Madsen is a 44 year old male who presents here today for Above Complaints. Antwan is an established patient of Dr. Felix DO. Concerns today... Routine physical exam. No concerns or complaints today. Mood/ LISBETH -- Prescribed Prozac 10 mg daily and wellbutrin 75 mg daily. Stable and well controlled on this regimen. Does not want any changes. Migraines -- Went from daily headaches to now once per week on average since starting topamax. Does report recently he has been getting headaches about 2x per week. Wondering if muscle fatigue is a common side effect with topamax. Pt reports some mild muscle fatigue and reports symptoms are worse when he takes higher dose of topamax and but less when he takes lower dose. He goes between taking 2/3 tablets recently d/t the increase in frequency of headaches (50-75 mg). No other new neuro symptoms. GERD -- stable on Nexium. Allergies -- stable on Singulair. HM -- up to date. Past medical history, appointments, medications, allergies reviewed. Previous Medical History PAST MEDICAL HISTORY Diagnosis Date NONE Previous Surgical History PAST SURGICAL HISTORY Procedure Laterality Date NONE Family History FAMILY HISTORY Problem Relation Age of Onset Cancer Paternal Grandfather stomach cancer Breast Cancer Other great aunt Patient Allergies ALLERGIES Allergen Reactions Imitrex [Sumatripta* Myalgia Current Medications Current Outpatient Medications on File Prior to Visit Medication Sig topiramate (TOPAMAX) 25 mg tablet Take 2 tablets by mouth once daily. esomeprazole (NEXIUM) 20 mg capsule Take 1 capsule by mouth daily before breakfast. 1/2 hr before meal. FLUoxetine (PROZAC) 10 mg capsule Take 1 capsule by mouth once daily. buPROPion (WELLBUTRIN) 75 mg tablet Take 1 tablet by mouth once daily. gabapentin (NEURONTIN) 300 mg capsule Take 1 capsule by mouth two times a day as needed (migraine) for up to 30 days. montelukast (SINGULAIR) 10 mg tablet Take 1 tablet by mouth daily at bedtime. tiZANidine (ZANAFLEX) 2 mg tablet Take 1 tablet by mouth at bedtime as needed. No current facility-administered medications on file prior to visit. Social History Social History Tobacco Use Smoking status: Never Smokeless tobacco: Former Quit date: 12/24/2011 Substance Use Topics Alcohol use: Yes Drug use: No REVIEW OF SYSTEMS: as above Reviewed relevant PMHx, PSHx, Social Hx, current medications and allergies. Review of Symptoms REVIEW OF SYSTEMS See HPI. EXAM: BP 100/62 (BP Site: Left Arm, BP Position: Sitting, BP Cuff Size: Regular Adult) Pulse 89 Resp 14 Ht 174 cm (5' 8.5) Wt 78.9 kg (174 lb) SpO2 95% BMI 26.07 kg/m? General Appearance: Well appearing, alert, in no acute distress, well-hydrated, well nourished.. Skin: Skin color, texture, turgor normal, no suspicious rashes or lesions. Head: Normocephalic, no masses, lesions, tenderness or abnormalities. Oropharynx: Lips, mucosa, and tongue normal, teeth and gums normal, oropharynx normal. Neck: Supple, no adenopathy; thyroid symmetric, normal size, no bruits. Back:no pain to palpation of vertebrae, good flexion and extension, good range of motion, no muscle tenderness, reflexes are 2+ and symmetric, motor and sensory appear to be normal, negative SLR test, no evidence of scoliosis Lungs: Lungs clear to auscultation. No wheezing, rhonchi, rales.. Heart: RRR without murmur, gallop, or rubs. No ectopy. Abdomen: Normal abdominal exam, Abdomen soft, non-tender. Bowel sounds normal. No masses, organomegaly. Neurologic: Gait normal. Reflexes normal and symmetric. Sensation grossly intact.. Health Maintenance List Depression Screening Never done Hepatitis B Vaccine(1 of 3 - 19+ 3-dose series) Never done Influenza Vaccine(1) due on 05/22/2025 DTaP,Tdap,Td Vaccine(2 - Tdap) due on 01/16/2026 Covid-19 Vaccine(1 - season) due on 01/16/2026 Lipid Screening due on 12/07/2028 Hepatitis C Screening Discontinued HIV Screening Discontinued ASSESSMENT/PLAN: 1. Encounter for wellness examination in adult - ICD9: V70.0, ICD10: Z00.00 (primary diagnosis) - Counseled on healthy diet and regular exercise - Follow up for annual exam in one year - LIPID PANEL BASIC - COMPREHENSIVE METABOLIC PANEL - COMPLETE BLOOD COUNT AND DIFFERENTIAL - HEMOGLOBIN A1C 2. Hyperlipidemia, unspecified hyperlipidemia type - ICD9: 272.4, ICD10: E78.5 - Control undetermined, due for labs - Continue current medications - Counseled on healthy diet and regular exercise - LIPID PANEL BASIC - COMPREHENSIVE METABOLIC PANEL - COMPLETE BLOOD COUNT AND DIFFERENTIAL 3. LISBETH (generalized anxiety disorder) - ICD9: 300.02, ICD10: F41.1 (more content not included)... [facility] 01-16-2025 History of Presen t illness Narrative Chief Complaint Patient presents with: Physical HPI Kvng Madsen is a 44 year old male who presents here today for Above Complaints. Antwan is an established patient of Dr. Felix DO. Concerns today... Routine physical exam. No concerns or complaints today. Mood/ LISBETH -- Prescribed Prozac 10 mg daily and wellbutrin 75 mg daily. Stable and well controlled on this regimen. Does not want any changes. Migraines -- Went from daily headaches to now once per week on average since starting topamax. Does report recently he has been getting headaches about 2x per week. Wondering if muscle fatigue is a common side effect with topamax. Pt reports some mild muscle fatigue and reports symptoms are worse when he takes higher dose of topamax and but less when he takes lower dose. He goes between taking 2/3 tablets recently d/t the increase in frequency of headaches (50-75 mg). No other new neuro symptoms. GERD -- stable on Nexium. Allergies -- stable on Singulair. HM -- up to date. Past medical history, appointments, medications, allergies reviewed. Previous Medical History PAST MEDICAL HISTORY Diagnosis Date NONE Previous Surgical History PAST SURGICAL HISTORY Procedure Laterality Date NONE Family History FAMILY HISTORY Problem Relation Age of Onset Cancer Paternal Grandfather stomach cancer Breast Cancer Other great aunt Patient Allergies ALLERGIES Allergen Reactions Imitrex [Sumatripta* Myalgia Current Medications Current Outpatient Medications on File Prior to Visit Medication Sig topiramate (TOPAMAX) 25 mg tablet Take 2 tablets by mouth once daily. esomeprazole (NEXIUM) 20 mg capsule Take 1 capsule by mouth daily before breakfast. 1/2 hr before meal. FLUoxetine (PROZAC) 10 mg capsule Take 1 capsule by mouth once daily. buPROPion (WELLBUTRIN) 75 mg tablet Take 1 tablet by mouth once daily. gabapentin (NEURONTIN) 300 mg capsule Take 1 capsule by mouth two times a day as needed (migraine) for up to 30 days. montelukast (SINGULAIR) 10 mg tablet Take 1 tablet by mouth daily at bedtime. tiZANidine (ZANAFLEX) 2 mg tablet Take 1 tablet by mouth at bedtime as needed. No current facility-administered medications on file prior to visit. Social History Social History Tobacco Use Smoking status: Never Smokeless tobacco: Former Quit date: 12/24/2011 Substance Use Topics Alcohol use: Yes Drug use: No REVIEW OF SYSTEMS: as above Reviewed relevant PMHx, PSHx, Social Hx, current medications and allergies. Review of Symptoms REVIEW OF SYSTEMS See HPI. EXAM: BP 100/62 (BP Site: Left Arm, BP Position: Sitting, BP Cuff Size: Regular Adult) Pulse 89 Resp 14 Ht 174 cm (5' 8.5) Wt 78.9 kg (174 lb) SpO2 95% BMI 26.07 kg/m General Appearance: Well appearing, alert, in no acute distress, well-hydrated, well nourished.. Skin: Skin color, texture, turgor normal, no suspicious rashes or lesions. Head: Normocephalic, no masses, lesions, tenderness or abnormalities. Oropharynx: Lips, mucosa, and tongue normal, teeth and gums normal, oropharynx normal. Neck: Supple, no adenopathy; thyroid symmetric, normal size, no bruits. Back:no pain to palpation of vertebrae, good flexion and extension, good range of motion, no muscle tenderness, reflexes are 2+ and symmetric, motor and sensory appear to be normal, negative SLR test, no evidence of scoliosis Lungs: Lungs clear to auscultation. No wheezing, rhonchi, rales.. Heart: RRR without murmur, gallop, or rubs. No ectopy. Abdomen: Normal abdominal exam, Abdomen soft, non-tender. Bowel sounds normal. No masses, organomegaly. Neurologic: Gait normal. Reflexes normal and symmetric. Sensation grossly intact.. Health Maintenance List Depression Screening Never done Hepatitis B Vaccine(1 of 3 - 19+ 3-dose series) Never done Influenza Vaccine(1) due on 05/22/2025 DTaP,Tdap,Td Vaccine(2 - Tdap) due on 01/16/2026 Covid-19 Vaccine(1 - 2023- season) due on 01/16/2026 Lipid Screening due on 12/07/2028 Hepatitis C Screening Discontinued HIV Screening Discontinued ASSESSMENT/PLAN: 1. Encounter for wellness examination in adult - ICD9: V70.0, ICD10: Z00.00 (primary diagnosis) - Counseled on healthy diet and regular exercise - Follow up for annual exam in one year - LIPID PANEL BASIC - COMPREHENSIVE METABOLIC PANEL - COMPLETE BLOOD COUNT AND DIFFERENTIAL - HEMOGLOBIN A1C 2. Hyperlipidemia, unspecified hyperlipidemia type - ICD9: 272.4, ICD10: E78.5 - Control undetermined, due for labs - Continue current medications - Counseled on healthy diet and regular exercise - LIPID PANEL BASIC - COMPREHENSIVE METABOLIC PANEL - COMPLETE BLOOD COUNT AND DIFFERENTIAL 3. LISBETH (generalized anxiety disorder) - ICD9: 300.02, ICD10: F41.1 Stable. Well controlled on current regimen. Refilled. - COMPREHENSIVE METABOLIC PANEL - COMPLETE BLOOD COUNT AND DIFFERENTIAL - FLUOXETINE 10 MG CAPSULE - BUPROPION HCL 75 MG TABLET 4. Gastroesophageal reflux disease with esophagitis, unspecified whether hemorrhage - ICD9: 530.11, ICD10: K21.00 Stable, refilled current regimen. - COMPREHENSIVE METABOLIC PANEL - COMPLETE BLOOD COUNT AND DIFFERENTIAL - ESOMEPRAZOLE MAGNESIUM 20 MG CAPSULE,DELAYED RELEASE 5. Migraine headaches - ICD9: 346.90, ICD10: G43.909 Increase topamax slightly to 100 mg daily. Discussed taking supplement CoQ10 with topamax regimen to help with muscle fatigue side effects. - COMPREHENSIVE METABOLIC PANEL - COMPLETE BLOOD COUNT AND DIFFERENTIAL - TOPIRAMATE 50 MG TABLET 6. Screening for depression - ICD9: V79.0, ICD10: Z13.31 - DEPRESSION SCREENING RTO annually and as needed. Prescription instructions reviewed with patient as applicable. Potential red flag symptoms discussed with the patient. Reviewed appropriate action plan to take if red flag symptoms occur. Patient agreeable to treatment plan. Michelle Woods APRN.EVENT MANAGER [address] [place] [address] documented in this encounter [facility] 12-16-2024 Telephone encounter Note Images from the original note were not included. Possible duplicate medication refill request. Routed to provider for review. Anticonvulsant Refill Checklist [id number]/16/2024 05:43 AM Protocol Details CBC within the last 12 months Lytes within the last 12 months LFT within the last 12 months Serum Creatinine within the last 12 month Visit with provider within the last 12 months [facility] 12-16-2024 Miscellaneous Notes Images from the original note were not included. Possible duplicate medication refill request. Routed to provider for review. Anticonvulsant Refill Checklist [id number]/16/2024 05:43 AM Protocol Details CBC within the last 12 months Lytes within the last 12 months LFT within the last 12 months Serum Creatinine within the last 12 month Visit with provider within the last 12 months documented in this encounter [facility] 11-30-2024 Telephone encounter Note The patient has been identified by name and date of : Yes Caregiver verified no other encounters exist for this prescription request: Yes Caregiver confirmed with patient/requestor that no other refills are due, in the near future, with this provider at this time: Yes The last office visit in the department: 12/07/2023 Does the patient have a future office visit with this provider/department: 12/14/2024 Requested Prescriptions Pending Prescriptions Disp Refills esomeprazole (NEXIUM) 20 mg capsule 90 capsule 1 Sig: Take 1 capsule by mouth daily before breakfast. 1/2 hr before meal. Stella Jones RN November 30, 2024 8:07 AM [facility] 11-30-2024 Miscellaneous Notes The patient has been identified by name and date of : Yes Caregiver verified no other encounters exist for this prescription request: Yes Caregiver confirmed with patient/requestor that no other refills are due, in the near future, with this provider at this time: Yes The last office visit in the department: 12/07/2023 Does the patient have a future office visit with this provider/department: 12/14/2024 Requested Prescriptions Pending Prescriptions Disp Refills esomeprazole (NEXIUM) 20 mg capsule 90 capsule 1 Sig: Take 1 capsule by mouth daily before breakfast. 1/2 hr before meal. Stella Jones RN November 30, 2024 8:07 AM documented in this encounter [facility] 11-14-2024 Telephone encounter Note Prescription Refill Information The patient has been identified by name and date of : Yes Caregiver verified no other encounters exist for this prescription request: Yes Caregiver confirmed with patient/requestor that no other refills are due, in the near future, with this provider at this time: Yes The last office visit in the department: 08/23/2024 w/Allegra Blackman CNP Does the patient have a future office visit with this provider/department: No Requested Prescriptions Pending Prescriptions Disp Refills topiramate (TOPAMAX) 25 mg tablet [Pharmacy Med Name: Topiramate 25 MG Oral Tablet] 60 tablet 0 Sig: TAKE 2 TABLETS BY MOUTH ONCE DAILY AT BEDTIME Last ordered: 08/23/2024 by Allegra Blackman CNP Routing to provider for review. Giulia Tomlinson RN November 14, 2024 9:08 AM [facility] 11-14-2024 Miscellaneous Notes Prescription Refill Information The patient has been identified by name and date of : Yes Caregiver verified no other encounters exist for this prescription request: Yes Caregiver confirmed with patient/requestor that no other refills are due, in the near future, with this provider at this time: Yes The last office visit in the department: 08/23/2024 w/Allegra Blackman CNP Does the patient have a future office visit with this provider/department: No Requested Prescriptions Pending Prescriptions Disp Refills topiramate (TOPAMAX) 25 mg tablet [Pharmacy Med Name: Topiramate 25 MG Oral Tablet] 60 tablet 0 Sig: TAKE 2 TABLETS BY MOUTH ONCE DAILY AT BEDTIME Last ordered: 08/23/2024 by Allegra Blackman CNP Routing to provider for review. Giulia Tomlinson RN November 14, 2024 9:08 AM documented in this encounter [facility] 10-10-2024 History of Presen t illness Narrative Telemedicine Visit - Distance Health Virtual Visit Note Patient seen on [employer] Video Visit platform. Location of patient: [place] I have communicated my name and active licensure. The patient's identity and physical location were verified at the time of this visit. Either the patient or their legal in home sales representative has been informed of the risks and benefits of -- and alternatives to -- treatment through a remote evaluation and consents to proceed with the evaluation remotely. History of Present Illness Kvng Madsen is a 44 year old male who presents for complaint of generalized anxiety. Would like to discuss weaning off of wellbutrin and prozac. Patient has been taking this medication since approximately 2019. 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 Now things are more stable, controlled. Would like to not be on as much medication. Currently on Prozac 20 mg daily. Prescribed Wellbutrin SR 150 mg twice daily but has been taking only once a day. Denies any ongoing depression. Also taking Topamax at night for headaches. Follows in neurology. Feels like when he takes 3 tablets of Topamax along with his other medications he gets sexual dysfunction. Part of the reason why he would like to get off more medications. Would like a weaning schedule. PAST MEDICAL HISTORY Diagnosis Date NONE PAST SURGICAL HISTORY Procedure Laterality Date NONE FAMILY HISTORY Problem Relation Age of Onset Cancer Paternal Grandfather stomach cancer Breast Cancer Other great aunt Social History Tobacco Use Smoking status: Never Smokeless tobacco: Former Quit date: 12/24/2011 Substance Use Topics Alcohol use: Yes Drug use: No Current Outpatient Medications Medication Sig FLUoxetine (PROZAC) 10 mg capsule Take 1 capsule by mouth once daily for 30 days, THEN 1 capsule every other day for 14 days. buPROPion (WELLBUTRIN) 75 mg tablet Take 1 tablet by mouth once daily for 30 days, THEN 1 tablet every other day for 14 days. gabapentin (NEURONTIN) 300 mg capsule Take 1 capsule by mouth two times a day as needed (migraine) for up to 30 days. montelukast (SINGULAIR) 10 mg tablet Take 1 tablet by mouth daily at bedtime. tiZANidine (ZANAFLEX) 2 mg tablet Take 1 tablet by mouth at bedtime as needed. topiramate (TOPAMAX) 25 mg tablet Take 2 tablets by mouth daily at bedtime. esomeprazole (NEXIUM) 20 mg capsule Take 1 capsule by mouth daily before breakfast. 1/2 hr before meal. No current facility-administered medications for this visit. ALLERGIES Allergen Reactions Imitrex [Sumatripta* Myalgia Video Exam (Examination performed via Video enabled technology) General appearance: Alert, oriented, pleasant, in NAD :Yes Ill appearing :No Lethargic appearing :No Respiratory distress :No ASSESSMENT/PLAN: 1. LISBETH (generalized anxiety disorder) - ICD9: 300.02, ICD10: F41.1 -Reduce dose of Prozac and Wellbutrin by 50% for 1 month then every other day for 2 weeks then stop. Discussed potential for subtle withdrawal symptoms but should be mild as we have weaned off. Discussed if he finds himself being anxious we can consider continuing one of the medications such as Prozac. - FLUOXETINE 10 MG CAPSULE - BUPROPION HCL 75 MG TABLET - Red flags discussed for need for in person care - All questions answered Armando Gordillo APRN.CNP documented in this encounter [facility] 10-10-2024 Note HNO ID: [id number] Author: ARMANDO GORDILLO APRN.CNP Service: ? Author Type: Nurse Practitioner Type: Progress Notes Filed: 10/10/2024 08:00 Note Text: Telemedicine Visit - Distance Health Virtual Visit Note Patient seen on [employer] Video Visit platform. Location of patient: [place] I have communicated my name and active licensure. The patient's identity and physical location were verified at the time of this visit. Either the patient or their legal in home sales representative has been informed of the risks and benefits of -- and alternatives to -- treatment through a remote evaluation and consents to proceed with the evaluation remotely. History of Present Illness Kvng Madsen is a 44 year old male who presents for complaint of generalized anxiety. Would like to discuss weaning off of wellbutrin and prozac. Patient has been taking this medication since approximately 2019. 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 Now things are more stable, controlled. Would like to not be on as much medication. Currently on Prozac 20 mg daily. Prescribed Wellbutrin SR 150 mg twice daily but has been taking only once a day. Denies any ongoing depression. Also taking Topamax at night for headaches. Follows in neurology. Feels like when he takes 3 tablets of Topamax along with his other medications he gets sexual dysfunction. Part of the reason why he would like to get off more medications. Would like a weaning schedule. PAST MEDICAL HISTORY Diagnosis Date NONE PAST SURGICAL HISTORY Procedure Laterality Date NONE FAMILY HISTORY Problem Relation Age of Onset Cancer Paternal Grandfather stomach cancer Breast Cancer Other great aunt Social History Tobacco Use Smoking status: Never Smokeless tobacco: Former Quit date: 12/24/2011 Substance Use Topics Alcohol use: Yes Drug use: No Current Outpatient Medications Medication Sig FLUoxetine (PROZAC) 10 mg capsule Take 1 capsule by mouth once daily for 30 days, THEN 1 capsule every other day for 14 days. buPROPion (WELLBUTRIN) 75 mg tablet Take 1 tablet by mouth once daily for 30 days, THEN 1 tablet every other day for 14 days. gabapentin (NEURONTIN) 300 mg capsule Take 1 capsule by mouth two times a day as needed (migraine) for up to 30 days. montelukast (SINGULAIR) 10 mg tablet Take 1 tablet by mouth daily at bedtime. tiZANidine (ZANAFLEX) 2 mg tablet Take 1 tablet by mouth at bedtime as needed. topiramate (TOPAMAX) 25 mg tablet Take 2 tablets by mouth daily at bedtime. esomeprazole (NEXIUM) 20 mg capsule Take 1 capsule by mouth daily before breakfast. 1/2 hr before meal. No current facility-administered medications for this visit. ALLERGIES Allergen Reactions Imitrex [Sumatripta* Myalgia Video Exam (Examination performed via Video enabled technology) General appearance: Alert, oriented, pleasant, in NAD :Yes Ill appearing :No Lethargic appearing :No Respiratory distress :No ASSESSMENT/PLAN: 1. LISBETH (generalized anxiety disorder) - ICD9: 300.02, ICD10: F41.1 -Reduce dose of Prozac and Wellbutrin by 50% for 1 month then every other day for 2 weeks then stop. Discussed potential for subtle withdrawal symptoms but should be mild as we have weaned off. Discussed if he finds himself being anxious we can consider continuing one of the medications such as Prozac. - FLUOXETINE 10 MG CAPSULE - BUPROPION HCL 75 MG TABLET - Red flags discussed for need for in person care - All questions answered Armando Gordillo APRN.[facility] 09-15-2024 Note HNO ID: [id number] Author: ?, ?, ? Service: ? Author Type: ? Type: Progress Notes Filed: 09/15/2024 10:00 Note Text: Sleep Study Check-In Documentation Date: September 15, 2024 Name: Kvng Cale Comments: HST was returned in working order with all sleep questionnaires Eren Menendez [facility] 09-15-2024 History of Presen t illness Narrative Sleep Study Check-In Documentation Date: September 15, 2024 Name: Kvng Madsen Comments: HST was returned in working order with all sleep questionnaires Eren Menendez [employer] # [id number], date shipped out 09-12-24 [employer] only Tracking mailout: [id number] Tracking return: [id number] August 29, 2024 Standing PSG Orders signed in the last 90 days None Future PSG Orders signed in the last 90 days Ordered Auth. provider HOME SLEEP APNEA TEST (HSAT) [[id number]] 08/23/24 Allegra Blackman APRN.EVENT MANAGER Assoc. diagnoses: Other fatigue [R53.83] Q: Indications: A: Obstructive sleep apnea Q: STOP-BANG conditions - Select All That Apply: A: GENDER = male Q: Current use of supplemental oxygen during sleep period?: A: No All Prior Sleep Studies (past 365 days) 08/23/2024 07:37 Sleep Studies HOME SLEEP APNEA TEST (HSAT) HOME SLEEP APNEA TEST (HSAT) Order Status: Ordered, Future Expires: 08/23/25 BMI Readings from Last 2 Encounters: 12/07/23 : 28.68 kg/m 04/17/23 : 29.29 kg/m PAST MEDICAL HISTORY Diagnosis Date NONE The medical record was reviewed to determine if the proposed sleep study conforms to the AASM Practice Parameters for the Indications for Polysomnography and Related Procedures, or if the sleep study is indicated for other reasons. Indications for study: CISCO suspected without comorbid medical or sleep disorders Sleep study to be performed: Home Sleep Apnea Test (HSAT) Special instructions: None-follow laboratory protocol Margarita Cota - Sleep Medicine Staff Note: I have read the above protocol, edited as needed, and agree to the plan. Pura Cho III, PhD 3:38 PM, 08/29/2024 documented in this encounter [facility] 09-14-2024 Telephone encounter Note Neurontin prescription changed per [employer] messaging. Routing to provider for review. [facility] 09-14-2024 Miscellaneous Notes Neurontin prescription changed per [employer] messaging. Routing to provider for review. KRIS: 08/23/2024 w/Allegra Blackman CNP PLAN: G43.909 Migraine headaches R53.83 Other fatigue Comment: Pt presenting today for migraine headache. He reports that he has a history of headaches since roughly age 18, however, over the past few years symptoms have worsened. He reports headaches roughly 4-5 times per week with roughly 3 migraines per week. Migraines are located to R/L temporal region and can be associated with photophobia and nausea. 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 He was previously following with his PCP for management of migraine headaches and has tried propranolol, Topamax (though appears patient only on 25mg), Imitrex, Ubrelvy (allergic reaction to Imitrex and Ubrelvy), and is currently taking Wellbutrin and fluoxetine (limiting use of other medication such as TCA). Exam is limited today due to virtual platform. No red flag symptoms reported. After discussion regarding medications we will proceed with plan as follows: -Begin Topamax 25mg daily at bedtime. Increase to 50mg after 5 days. If no SE may then further increase to 75mg and ultimately 100mg. -D/t SE with both triptan (muscle cramps) and CGRP (throat swelling), will begin gabapentin 100mg at onset of migraine headache (noting this can be increased up to 300mg at time of follow-up if no relief with 100mg). -Begin tizanidine 2mg once daily as needed for neck pain with possible relief of headaches. -HSAT to evaluate for possible CISCO given frequent overnight awakenings and daytime fatigue. -Will consider Botox should Topamax be ineffective. -Decrease/stop use of energy drinks. Follow-up in 6 weeks or sooner should new or changing symptoms occur. Neurontin refill pended for provider review. Routing to provider. documented in this encounter [facility] 09-13-2024 Telephone encounter Note KRIS: 08/23/2024 w/Allegra Blackman CNP PLAN: G43.909 Migraine headaches R53.83 Other fatigue Comment: Pt presenting today for migraine headache. He reports that he has a history of headaches since roughly age 18, however, over the past few years symptoms have worsened. He reports headaches roughly 4-5 times per week with roughly 3 migraines per week. Migraines are located to R/L temporal region and can be associated with photophobia and nausea. 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 He was previously following with his PCP for management of migraine headaches and has tried propranolol, Topamax (though appears patient only on 25mg), Imitrex, Ubrelvy (allergic reaction to Imitrex and Ubrelvy), and is currently taking Wellbutrin and fluoxetine (limiting use of other medication such as TCA). Exam is limited today due to virtual platform. No red flag symptoms reported. After discussion regarding medications we will proceed with plan as follows: -Begin Topamax 25mg daily at bedtime. Increase to 50mg after 5 days. If no SE may then further increase to 75mg and ultimately 100mg. -D/t SE with both triptan (muscle cramps) and CGRP (throat swelling), will begin gabapentin 100mg at onset of migraine headache (noting this can be increased up to 300mg at time of follow-up if no relief with 100mg). -Begin tizanidine 2mg once daily as needed for neck pain with possible relief of headaches. -HSAT to evaluate for possible CISCO given frequent overnight awakenings and daytime fatigue. -Will consider Botox should Topamax be ineffective. -Decrease/stop use of energy drinks. Follow-up in 6 weeks or sooner should new or changing symptoms occur. Neurontin refill pended for provider review. Routing to provider. [facility] 09-12-2024 Note HNO ID: [id number] Author: ?, ?, ? Service: ? Author Type: ? Type: Progress Notes Filed: 09/15/2024 10:00 Note Text: Nom[employer] # [id number], date shipped out 09-12-24 Fed Ex only Tracking mailout: [id number] Tracking return: [id number] [facility] 09-05-2024 Telephone encounter Note Prescription Refill Information The patient has been identified by name and date of : Yes Caregiver verified no other encounters exist for this prescription request: Yes Caregiver confirmed with patient/requestor that no other refills are due, in the near future, with this provider at this time: Yes The last office visit in the department: 12/07/23 Does the patient have a future office visit with this provider/department: No Requested Prescriptions Pending Prescriptions Disp Refills montelukast (SINGULAIR) 10 mg tablet 90 tablet 1 Sig: Take 1 tablet by mouth daily at bedtime. Sanam Skaggs LPN September 05, 2024 11:22 AM [facility] 09-05-2024 Miscellaneous Notes Prescription Refill Information The patient has been identified by name and date of : Yes Caregiver verified no other encounters exist for this prescription request: Yes Caregiver confirmed with patient/requestor that no other refills are due, in the near future, with this provider at this time: Yes The last office visit in the department: 12/07/23 Does the patient have a future office visit with this provider/department: No Requested Prescriptions Pending Prescriptions Disp Refills montelukast (SINGULAIR) 10 mg tablet 90 tablet 1 Sig: Take 1 tablet by mouth daily at bedtime. Sanam Skaggs LPN September 05, 2024 11:22 AM documented in this encounter [facility] 08-29-2024 Note HNO ID: [id number] Author: PURA CHO III, PhD Service: ? Author Type: Physician Type: Progress Notes Filed: 09/15/2024 10:00 Note Text: August 29, 2024 Standing PSG Orders signed in the last 90 days None Future PSG Orders signed in the last 90 days Ordered Auth. provider HOME SLEEP APNEA TEST (HSAT) [[id number]] 08/23/24 Allegra Blackman APRN.EVENT MANAGER Assoc. diagnoses: Other fatigue [R53.83] Q: Indications: A: Obstructive sleep apnea Q: STOP-BANG conditions - Select All That Apply: A: GENDER = male Q: Current use of supplemental oxygen during sleep period?: A: No All Prior Sleep Studies (past 365 days) 08/23/2024 07:37 Sleep Studies HOME SLEEP APNEA TEST (HSAT) HOME SLEEP APNEA TEST (HSAT) Order Status: Ordered, Future Expires: 08/23/25 BMI Readings from Last 2 Encounters: 12/07/23 : 28.68 kg/m? 04/17/23 : 29.29 kg/m? PAST MEDICAL HISTORY Diagnosis Date NONE The medical record was reviewed to determine if the proposed sleep study conforms to the AASM Practice Parameters for the Indications for Polysomnography and Related Procedures, or if the sleep study is indicated for other reasons. Indications for study: CISCO suspected without comorbid medical or sleep disorders Sleep study to be performed: Home Sleep Apnea Test (HSAT) Special instructions: None-follow laboratory protocol Margarita Cota - Sleep Medicine Staff Note: I have read the above protocol, edited as needed, and agree to the plan. Pura Cho III, PhD 3:38 PM, 08/29/2024 [facility] 08-23-2024 History of Presen t illness Narrative Images from the original note were not included. [facility] [place] New Patient Evaluation This visit was conducted via virtual platform. I have communicated my name and active licensure. The patient's identity and physical location were verified at the time of this visit. Either the patient or their legal in home sales representative has been informed of the risks and benefits of -- and alternatives to -- treatment through a remote evaluation and consents to proceed with the evaluation remotely. CHIEF COMPLAINT: Migraines Kvng Madsen is a 43 year old accompanied by self. Consult was requested by Hao Washington DO for an opinion regarding above CC. My final impression and recommendations will be communicated back to the requesting physician by way of the shared medical record or fax. August 23, 2024 HPI: Mr. Madsen presents today secondary to issues of migraines. Migraine HPI HEADACHE LOCATION: temporal region right, left; sometimes radiation frontally and to top of the head Onset: Headaches began since age 18; over the past few years have worsened Quality: aching Photophobia? No Phonophobia? Yes Nausea? Yes Vomitting? No Aura? No Worse with activity? No Frequency: daily (regular headache 4-5x per week and some weeks with three migraines per week) ; start at different times of the day, can be 8am or in the afternoon, a few times has woken with one. Can resolve overnight. Duration? Lasts all day until he sleeps if not taking medication; medication doesn't help Neck pain: hx of pinched nerve since HS; can have some pain in the back of his neck and feels it radiate across his head Caffeine intake? Coffee, 1 cups/day; drinks 1-2 energy drinks each day (for roughly one year) Water intake? Fill basilia 3x per day (uses energy drink mix with this) Triggers? Strong smells (candles), headaches when working, etoh pollen allergy- feels stuffy Sleep concerns? Wakes frequently to use the bathroom; no snoring; feels tired during the day- always hard to wake up in AM Mood concerns? Yes; anxiety and on Wellbutrin and Prozac (has been on Wellbutrin for 3-4 years) History of concussion? No Autonomic features: None Autonomic headache features -: none Positional? Laying down feels better Double vision? No Worse with valsalva/sneeze/cough? No Plans for ? 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 Previous/Current Headache treatment Preventative: propranolol topiramate Fluoxetine Rescue: Imitrex and Ubrogepant (Ubrelvy), Aleve, Excedrin (Muscle cramps with Imitrex) (Had throat swelling with Ubrelvy) Aleve or Advil # of doses of abortive medications per month: < 10 days/month (or 8 for opiates, 5 for barbiturates) Medication Overuse Headache concern? No Puts pressure on eyes which helps. Headaches -- A few headaches per week. Has tried topamax, propranolol, and prn imitrex with no relief in symptoms. OTC migraine patches do seem to help. Puts new one on daily. Does feel like headaches are triggered by stress and tension from work. Worse / occur frequently directly after long day at work. Does admit to jaw clenching and muscle tension in neck frequently. 3. Headaches - ICD9: 784.0, ICD10: R51.9 Stable. Able to function normally with episodes. Likely r/t stress and tension of job and jaw clenching/neck muscle tension. Flexeril TID as needed -- pt aware of side effects and to not take while driving. Referral to headache clinic if no improvement. - CYCLOBENZAPRINE 10 MG TABLET PAST MEDICAL HISTORY Diagnosis Date NONE PAST SURGICAL HISTORY Procedure Laterality Date NONE Current Outpatient Medications on File Prior to Visit Medication Sig buPROPion SR (WELLBUTRIN SR) 150 mg 12 hr tablet Take 1 tablet by mouth once daily. FLUoxetine (PROZAC) 20 mg capsule One pill by mouth daily. esomeprazole (NEXIUM) 20 mg capsule Take 1 capsule by mouth daily before breakfast. 1/2 hr before meal. montelukast (SINGULAIR) 10 mg tablet Take 1 tablet by mouth daily at bedtime. No current facility-administered medications on file prior to visit. Social History Tobacco Use Smoking status: Never Smokeless tobacco: Former Quit date: 12/24/2011 Substance Use Topics Alcohol use: Yes Drug use: No ALLERGIES Allergen Reactions Imitrex [Sumatripta* Myalgia Review of Systems: See HPI. Physical Exam: There were no vitals filed for this visit. Patient is alert and in no distress. Dress is appropriate. Mood is appropriate Breathing appears regular and unstressed Neurologic examination: Exam is observational at best. General Appearance: well appearing, in no acute distress Mental status evaluation during the interview and examination showed normal level of consciousness, orientation, language, memory, praxis, and higher intellectual function Affect: Normal Speech: normal Cranial Nerves: III, IV, -EOMI: full. VII-face is symmetric without evidence of weakness. VIII-hearing intact. XII-tongue protrudes midline with normal movements. Labs/studies: Latest Ref [facility] 12/07/2023 WBC 3.70 - 11.00 k/uL 7.47 RBC 4.20 - 6.00 m/uL 4.89 Hemoglobin 13.0 - 17.0 g/dL 15.4 Hematocrit 39.0 - 51.0 % 43.8 MCV 80.0 - 100.0 fL 89.6 MCH 26.0 - 34.0 pg 31.5 MCHC 30.5 - 36.0 g/dL 35.2 RDW-CV 11.5 - 15.0 % 11.8 Platelet Count 150 - 400 k/uL 209 MPV 9.0 - 12.7 fL 10.8 Neut% % 60.7 Abs Neut (ANC) 1.45 - 7.50 k/uL 4.53 Lymph% % 26.2 Abs Lymph 1.00 - 4.00 k/uL 1.96 Mcduffie% % 8.0 Abs Mcduffie <0.87 k/uL 0.60 Eosin% % 3.6 Abs Eosin <0.46 k/uL 0.27 Baso% % 1.2 Abs Baso <0.11 k/uL 0.09 Immature Gran % % 0.3 IMMATURE GRANS (ABS) <0.10 k/uL <0.03 NRBC /100 WBC 0.0 Absolute nRBC <0.01 k/uL <0.01 DTYPE Auto Protein, Total 6.3 - 8.0 g/dL 6.7 Albumin 3.9 - 4.9 g/dL 4.6 Calcium 8.5 - 10.2 mg/dL 9.4 Bilirubin, Total 0.2 - 1.3 mg/dL 0.3 Alkaline Phosphatase 38 - 113 U/L 61 AST 14 - 40 U/L 27 ALT 10 - 54 U/L 28 Glucose 74 - 99 mg/dL 89 BUN 9 - 24 mg/dL 15 Creatinine 0.73 - 1.22 mg/dL 1.05 Sodium 136 - 144 mmol/L 139 Potassium 3.7 - 5.1 mmol/L 4.1 Chloride 97 - 105 mmol/L 105 CO2 22 - 30 mmol/L 23 Anion Gap 9 - 18 mmol/L 11 eGFR >=60 mL/min/1.73m 91 Assessment/Plan: G43.909 Migraine headaches R53.83 Other fatigue Comment: Pt presenting today for migraine headache. He reports that he has a history of headaches since roughly age 18, however, over the past few years symptoms have worsened. He reports headaches roughly 4-5 times per week with roughly 3 migraines per week. Migraines are located to R/L temporal region and can be associated with photophobia and nausea. 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 He was previously following with his PCP for management of migraine headaches and has tried propranolol, Topamax (though appears patient only on 25mg), Imitrex, Ubrelvy (allergic reaction to Imitrex and Ubrelvy), and is currently taking Wellbutrin and fluoxetine (limiting use of other medication such as TCA). Exam is limited today due to virtual platform. No red flag symptoms reported. After discussion regarding medications we will proceed with plan as follows: -Begin Topamax 25mg daily at bedtime. Increase to 50mg after 5 days. If no SE may then further increase to 75mg and ultimately 100mg. -D/t SE with both triptan (muscle cramps) and CGRP (throat swelling), will begin gabapentin 100mg at onset of migraine headache (noting this can be increased up to 300mg at time of follow-up if no relief with 100mg). -Begin tizanidine 2mg once daily as needed for neck pain with possible relief of headaches. -HSAT to evaluate for possible CISCO given frequent overnight awakenings and daytime fatigue. -Will consider Botox should Topamax be ineffective. -Decrease/stop use of energy drinks. Follow-up in 6 weeks or sooner should new or changing symptoms occur. [facility] on 08/23/24 HOME SLEEP APNEA TEST (HSAT) CONSULT TO NEUROLOGY We will get a precert for Onabotulinum Toxin A using the PREEMPT protocol. This patient meets FDA criteria for Chronic Migraine without aura, without mention of intractable migraine without mention of status migrainosus. The migraine lasts for greater than 4 hours and has been chronic for more than three months. Onabotulinum Toxin A is FDA approved for chronic migraine. His headaches are associated with phonophobia, nausea for three or more months. Patient will not use in conjunction with CGRP preventive medications. Medication overuse, alternate diagnosis, confounding psychiatric or social stresses have been ruled out as the cause of headaches. Severity: moderate to severe Quality: throbbing Migraine days a month: 10 Headache days a month: 10 Total Headache days a month: 20 Headache free days a month: 10 The following preventative medications have been tried for at least three months without benefit or discontinued due to side effects: The following abortive medications have been tried but require high frequency use which can lead to Medication Overuse Headache: The patient has been assessed for disorders which could contribute to breathing or swallowing difficulty, and there is no contraindication with PREEMPT Botox. There is no documented allergic reaction/hypersensitivity to any botulinum toxin and there is no active infection at proposed injection site Allegra Blackman APRN.CNP I spent a total of 48 minutes on the date of the service which included preparing to see the patient, [id number] patient care, completing clinical documentation, obtaining and/or reviewing separately obtained history, performing a medically appropriate examination, counseling and educating the patient/family/caregiver, and ordering medications, tests, or procedures. Portions of this note were created with electronic dictation and errors in spelling, syntax, and meaning may have occurred. documented in this encounter [facility] 08-23-2024 Note HNO ID: [id number] Author: ALLEGRA BLACKMAN APRN.CNP Service: ? Author Type: Nurse Practitioner Type: Progress Notes Filed: 09/26/2024 06:08 Note Text: [facility] [place] New Patient Evaluation This visit was conducted via virtual platform. I have communicated my name and active licensure. The patient's identity and physical location were verified at the time of this visit. Either the patient or their legal in home sales representative has been informed of the risks and benefits of -- and alternatives to -- treatment through a remote evaluation and consents to proceed with the evaluation remotely. CHIEF COMPLAINT: Migraines Kvng Madsen is a 43 year old accompanied by self. Consult was requested by Hao Washington DO for an opinion regarding above CC. My final impression and recommendations will be communicated back to the requesting physician by way of the shared medical record or fax. August 23, 2024 HPI: Mr. Madsen presents today secondary to issues of migraines. Migraine HPI HEADACHE LOCATION: temporal region right, left; sometimes radiation frontally and to top of the head Onset: Headaches began since age 18; over the past few years have worsened Quality: aching Photophobia? No Phonophobia? Yes Nausea? Yes Vomitting? No Aura? No Worse with activity? No Frequency: daily (regular headache 4-5x per week and some weeks with three migraines per week) ; start at different times of the day, can be 8am or in the afternoon, a few times has woken with one. Can resolve overnight. Duration? Lasts all day until he sleeps if not taking medication; medication doesn't help Neck pain: hx of pinched nerve since HS; can have some pain in the back of his neck and feels it radiate across his head Caffeine intake? Coffee, 1 cups/day; drinks 1-2 energy drinks each day (for roughly one year) Water intake? Fill basilia 3x per day (uses energy drink mix with this) Triggers? Strong smells (candles), headaches when working, etoh pollen allergy- feels stuffy Sleep concerns? Wakes frequently to use the bathroom; no snoring; feels tired during the day- always hard to wake up in AM Mood concerns? Yes; anxiety and on Wellbutrin and Prozac (has been on Wellbutrin for 3-4 years) History of concussion? No Autonomic features: None Autonomic headache features -: none Positional? Laying down feels better Double vision? No Worse with valsalva/sneeze/cough? No Plans for ? 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 Previous/Current Headache treatment Preventative: propranolol topiramate Fluoxetine Rescue: Imitrex and Ubrogepant (Ubrelvy), Aleve, Excedrin (Muscle cramps with Imitrex) (Had throat swelling with Ubrelvy) Aleve or Advil # of doses of abortive medications per month: < 10 days/month (or 8 for opiates, 5 for barbiturates) Medication Overuse Headache concern? No Puts pressure on eyes which helps. PAST MEDICAL HISTORY Diagnosis Date NONE PAST SURGICAL HISTORY Procedure Laterality Date NONE Current Outpatient Medications on File Prior to Visit Medication Sig buPROPion SR (WELLBUTRIN SR) 150 mg 12 hr tablet Take 1 tablet by mouth once daily. FLUoxetine (PROZAC) 20 mg capsule One pill by mouth daily. esomeprazole (NEXIUM) 20 mg capsule Take 1 capsule by mouth daily before breakfast. 1/2 hr before meal. montelukast (SINGULAIR) 10 mg tablet Take 1 tablet by mouth daily at bedtime. No current facility-administered medications on file prior to visit. Social History Tobacco Use Smoking status: Never Smokeless tobacco: Former Quit date: 12/24/2011 Substance Use Topics Alcohol use: Yes Drug use: No ALLERGIES Allergen Reactions Imitrex [Sumatripta* Myalgia Review of Systems: See HPI. Physical Exam: There were no vitals filed for this visit. Patient is alert and in no distress. Dress is appropriate. Mood is appropriate Breathing appears regular and unstressed Neurologic examination: Exam is observational at best. General Appearance: well appearing, in no acute distress Mental status evaluation during the interview and examination showed normal level of consciousness, orientation, language, memory, praxis, and higher intellectual function Affect: Normal Speech: normal Cranial Nerves: III, IV, -EOMI: full. VII-face is symmetric without evidence of weakness. VIII-hearing intact. XII-tongue protrudes midline with normal movements. Labs/studies: Latest Ref [facility] 12/07/2023 WBC 3.70 - 11.00 k/uL 7.47 RBC 4.20 - 6.00 m/uL 4.89 Hemoglobin 13.0 - 17.0 g/dL 15.4 Hematocrit 39.0 - 51.0 % 43.8 MCV 80.0 - 100.0 fL 89.6 MCH 26.0 - 34.0 pg 31.5 MCHC 30.5 - 36.0 g/dL 35.2 RDW-CV 11.5 - 15.0 % 11.8 Platelet Count 150 - (more content not included)... [facility] 08-06-2024 Telephone encounter Note Pt notified via my chart. [facility] 08-06-2024 Miscellaneous Notes Pt notified via my chart. Please let him know that a referral for Neurologist has been made to get an opinion Hao Wahsington DO Pt sent in [employer] message on 08/04/24 asking about migraine relief. Please review message and advise. Pt was last seen for Wellness visit by Michelle Antony CNP on 12/07/23. Hawa Quezada MA Pt message: Previously, I was prescribed different medications to help with migraines that didn t offer any relief. It was suggested I may need to go to the migraine clinic. I m not opposed to doing that but I wondered if there is any other medication I can try before seeing a specialist? If not, can a referral be made for me? *I m still having headaches nearly daily and migraines at least 2 a week. Thanks, Antawn Madsen documented in this encounter [facility] 08-05-2024 Telephone encounter Note Please let him know that a referral for Neurologist has been made to get an opinion Hao Washington DO [facility] 08-04-2024 Telephone encounter Note Pt sent in [employer] message on 08/04/24 asking about migraine relief. Please review message and advise. Pt was last seen for Wellness visit by Michelle Antony CNP on 12/07/23. Hawa Quezada MA Pt message: Previously, I was prescribed different medications to help with migraines that didn t offer any relief. It was suggested I may need to go to the migraine clinic. I m not opposed to doing that but I wondered if there is any other medication I can try before seeing a specialist? If not, can a referral be made for me? *I m still having headaches nearly daily and migraines at least 2 a week. Thanks, Antwan Madsen [facility] 08-04-2024 Telephone encounter Note Started TE and routed to PCP. Pt made aware message was routed to PCP to review and advise. Hawa Quezada MA [facility] 08-04-2024 Miscellaneous Notes Started TE and routed to PCP. Pt made aware message was routed to PCP to review and advise. Hawa Quezada MA documented in this encounter [facility] 06-21-2024 Telephone encounter Note Prescription Refill Information The patient has been identified by name and date of : Yes Caregiver verified no other encounters exist for this prescription request: Yes Caregiver confirmed with patient/requestor that no other refills are due, in the near future, with this provider at this time: Yes The last office visit in the department: 12/07/23 Does the patient have a future office visit with this provider/department: No Requested Prescriptions Pending Prescriptions Disp Refills buPROPion SR (WELLBUTRIN SR) 150 mg 12 hr tablet Sig: Take 1 tablet by mouth once daily. Balbir Hernandez LPN June 21, 2024 8:31 AM [facility] 06-21-2024 Miscellaneous Notes Prescription Refill Information The patient has been identified by name and date of : Yes Caregiver verified no other encounters exist for this prescription request: Yes Caregiver confirmed with patient/requestor that no other refills are due, in the near future, with this provider at this time: Yes The last office visit in the department: 12/07/23 Does the patient have a future office visit with this provider/department: No Requested Prescriptions Pending Prescriptions Disp Refills buPROPion SR (WELLBUTRIN SR) 150 mg 12 hr tablet Sig: Take 1 tablet by mouth once daily. Balbir Hernandez LPN June 21, 2024 8:31 AM documented in this encounter [facility] 05-03-2024 Telephone encounter Note Patient has been identified by name and date of : yes Patient phones for refill(s): Requested Prescriptions Pending Prescriptions Disp Refills FLUoxetine (PROZAC) 20 mg capsule 90 capsule 1 Sig: One pill by mouth daily. esomeprazole (NEXIUM) 20 mg capsule 90 capsule 1 Sig: Take 1 capsule by mouth daily before breakfast. 1/2 hr before meal. Date of last office visit in primary care: 12/07/2023 Date of next office visit in primary care: Visit date not found Please advise. Thank you. Domonique Ojeda MA. [facility] 05-03-2024 Miscellaneous Notes Patient has been identified by name and date of : yes Patient phones for refill(s): Requested Prescriptions Pending Prescriptions Disp Refills FLUoxetine (PROZAC) 20 mg capsule 90 capsule 1 Sig: One pill by mouth daily. esomeprazole (NEXIUM) 20 mg capsule 90 capsule 1 Sig: Take 1 capsule by mouth daily before breakfast. 1/2 hr before meal. Date of last office visit in primary care: 12/07/2023 Date of next office visit in primary care: Visit date not found Please advise. Thank you. Domonique Ojeda MA. documented in this encounter [facility] 02-11-2024 Miscellaneous Notes See pt message, requesting Rx for Singulair. I've went ahead and pended Rx to correct Pharmacy. Update pt via [employer] once this has been sent. Last Rx: 10/15/22 #90 w/1. Waiting for pt to confirm what allergy medication she was taking in the past and where to send the refill? Licha Moctezuma MA documented in this encounter [facility] 08-28-2023 Miscellaneous Notes Kris--05/18/23 Nov--nothing scheduled Last refill--04/17/23 90 with 1 refill Last labs--04/17/23 documented in this encounter [facility] 07-13-2023 Miscellaneous Notes Last Office Visit: 05/18/2023 Future Office Visit: None Requested Prescriptions Pending Prescriptions Disp Refills buPROPion SR (WELLBUTRIN SR) 150 mg 12 hr tablet 60 tablet 2 Sig: Take 1 tablet by mouth twice daily. Date of Last Labs: 11/12/2022 documented in this encounter [facility] 06-11-2023 Miscellaneous Notes Patient has been identified by name and date of : Yes Patient phones for refill(s): Requested Prescriptions Pending Prescriptions Disp Refills FLUoxetine (PROZAC) 20 mg capsule 90 capsule 1 Sig: One pill by mouth daily. Date of last office visit in primary care: 05/18/2023 Please advise. Thank you. Luz Maria Evans LPN documented in this encounter [facility] 05-18-2023 Instructions Armando Gordillo APRN.EVENT MANAGER - 05/18/2023 7:43 AM EDT Cut back Wellbutrin to once daily for 2 weeks and then every other day for 2 weeks and stop and follow up. 2. Follow up in 1 month. documented in this encounter [facility] 05-18-2023 History of Presen t illness Narrative AMBULATORY TELEPHONE VISIT Kvng Madsen has consented to this telephone encounter. Persons Present: patient Chief Complaint/Reason: Medication problem HPI: Has been on prozac for approximately 3 years. Previously on lexapro. Had some weight gain and joint pain. Stating that he did not have fatigue prior to lexapro. Started on lexapro and then prozac for panic attacks. Fatigue is all day. States that it starts in the morning. Has difficulty with getting out of bed. Does not matter when he goes to bed. He denies any CISCO symptoms. He has been on Wellbutrin twice daily for years also. Denies any depression. Stating that anxiety and panic is controlled at this time. Data Reviewed: Most recent labs Assessment: (F41.1) LISBETH (generalized anxiety disorder) (primary encounter diagnosis) Component Latest Ref Rng & Units 11/12/2022 04/17/2023 WBC 3.70 - 11.00 k/uL 6.62 RBC 4.20 - 6.00 m/uL 4.91 Hemoglobin 13.0 - 17.0 g/dL 15.2 Hematocrit 39.0 - 51.0 % 44.2 MCV 80.0 - 100.0 fL 90.0 MCH 26.0 - 34.0 pg 31.0 MCHC 30.5 - 36.0 g/dL 34.4 RDW-CV 11.5 - 15.0 % 11.8 Platelet Count 150 - 400 k/uL 207 MPV 9.0 - 12.7 fL 11.4 Neut% % 58.6 Abs Neut (ANC) 1.45 - 7.50 k/uL 3.88 Lymph% % 29.5 Abs Lymph 1.00 - 4.00 k/uL 1.95 Mcduffie% % 8.0 Abs Mcduffie <0.87 k/uL 0.53 Eosin% % 2.7 Abs Eosin <0.46 k/uL 0.18 Baso% % 0.9 Abs Baso <0.11 k/uL 0.06 Immature Gran % % 0.3 IMMATURE GRANS (ABS) <0.10 k/uL <0.03 NRBC /100 WBC 0.0 Absolute nRBC <0.01 k/uL <0.01 DTYPE Auto Protein, Total 6.3 - 8.0 g/dL 6.8 Albumin 3.9 - 4.9 g/dL 4.4 Calcium 8.5 - 10.2 mg/dL 9.4 Bilirubin, Total 0.2 - 1.3 mg/dL <0.2 (L) Alkaline Phosphatase 38 - 113 U/L 53 AST 14 - 40 U/L 29 ALT 10 - 54 U/L 32 Glucose 74 - 99 mg/dL 80 BUN 9 - 24 mg/dL 16 Creatinine 0.73 - 1.22 mg/dL 1.18 Sodium 136 - 144 mmol/L 140 Potassium 3.7 - 5.1 mmol/L 4.1 Chloride 97 - 105 mmol/L 106 (H) CO2 22 - 30 mmol/L 23 Anion Gap 9 - 18 mmol/L 11 eGFR >=60 mL/min/1.73m 80 Cholesterol, Total <200 mg/dL 229 (H) Triglyceride <150 mg/dL 307 (H) HDL Cholesterol >39 mg/dL 29 (L) Non HDL Cholesterol <130 mg/dL 200 (H) Fasting Time hrs 2 VLDL Cholesterol <30 mg/dL 61 (H) TC:HDL Ratio <5.10 7.90 (H) LDL Cholesterol <100 mg/dL 139 (H) LDL:HDL Ratio <2.54 4.79 (H) Iron 41 - 186 ug/dL 94 TIBC 232 - 386 ug/dL 291 Transferrin Saturation 15.0 - 57.0 % 32.3 Hemoglobin A1C 4.3 - 5.6 % 4.9 Estimated Average Glucose mg/dL 94 Testosterone Free 4.46 - 17.1 ng/dL 22.0 (H) Testosterone 240 - 950 ng/dL 861 Vitamin D 25 Hydroxy 31.0 - 80.0 ng/mL 40.1 Vitamin B12 232 - 1,245 pg/mL 1,131 Ferritin 30.3 - 565.7 ng/mL 166.0 TSH 0.270 - 4.200 mIU/L 2.370 Free T4 0.9 - 1.7 ng/dL 1.1 ASSESSMENT/PLAN: 1. LISBETH (generalized anxiety disorder) - ICD9: 300.02, ICD10: F41.1 Continue with Prozac 20 mg. Start by decreasing Wellbutrin to one tablet daily for 2 weeks, then every other day for 2 weeks and then stop. Then follow up. Consider stopping and starting buspar. Armando Gordillo APRN.GRISELDA Total Time Spent: 15 minutes Armando Gordillo APRN.GRISELDA documented in this encounter [facility] 04-24-2023 Miscellaneous Notes Spoke with pt and results below given. Thyroid labs are normal. I'm still waiting on testosterone levels. Will let you know once we receive those. Written by Bridgette Molina PA-C on 04/24/2023 8:51 AM EDT Kayleigh Machado LPN documented in this encounter [facility] 03-11-2023 Miscellaneous Notes Patient has been identified by name and date of : Yes Patient phones for refill(s): Requested Prescriptions Pending Prescriptions Disp Refills FLUoxetine (PROZAC) 20 mg capsule 90 capsule 1 Sig: One pill by mouth daily. buPROPion SR (WELLBUTRIN SR) 150 mg 12 hr tablet 60 tablet 2 Sig: Take 1 tablet by mouth twice daily. Date of last office visit in primary care: KRIS 11/12/2022 No appointment scheduled Last 2 Encounter Wt Readings: Date: Wt: 11/12/2022 102.9 kg (226 lb 12.8 oz) 09/01/2022 99.3 kg (219 lb) Please advise. Thank you. DAHIANA Lee documented in this encounter [facility] 03-04-2023 Miscellaneous Notes Patient has been identified by name and date of : Yes Patient phones for refill(s): Requested Prescriptions Pending Prescriptions Disp Refills tirzepatide (MOUNJARO) 5 mg/0.5 mL pen injector 2 mL 1 Sig: Inject 5 mg subcutaneously one time a week. Date of last office visit in primary care: 11/12/2022 Please advise. Thank you. Luz Maria Evans LPN documented in this encounter [facility] 01-12-2023 Miscellaneous Notes Patient has been identified by name and date of : No Patient phones for refill(s): Requested Prescriptions Pending Prescriptions Disp Refills buPROPion SR (WELLBUTRIN SR) 150 mg 12 hr tablet 60 tablet 2 Sig: Take 1 tablet by mouth twice daily. Date of last office visit in primary care: 11/12/22 Last 2 Encounter Wt Readings: Date: Wt: 11/12/2022 102.9 kg (226 lb 12.8 oz) 09/01/2022 99.3 kg (219 lb) Previous labs/tests for medication: Not applicable Please advise. Thank you. Michelle Cantu LPN documented in this encounter [facility] 12-24-2022 Miscellaneous Notes The following approved medication requests have been transmitted electronically. Requested Prescriptions Signed Prescriptions Disp Refills tirzepatide (MOUNJARO) 2.5 mg/0.5 mL pen injector 2 mL 2 Sig: Inject 2.5 mg subcutaneously one time a week. Michelle Antony APRN.CNP See pt message and advise. Hawa Quezada Ma documented in this encounter [facility] 12-23-2022 Miscellaneous Notes Patient has been identified by name and date of : No Patient phones for refill(s): Requested Prescriptions Pending Prescriptions Disp Refills buPROPion SR (WELLBUTRIN SR) 150 mg 12 hr tablet 60 tablet 5 Sig: Take 1 tablet by mouth twice daily. Date of last office visit in primary care: 11/12/22 Last 2 Encounter Wt Readings: Date: Wt: 11/12/2022 102.9 kg (226 lb 12.8 oz) 09/01/2022 99.3 kg (219 lb) Previous labs/tests for medication: Not applicable Please advise. Thank you. Michelle Cantu LPN documented in this encounter [facility] 11-27-2022 Miscellaneous Notes Electronic PA done for Mounjaro and denied due to not covering weight loss med on plan. Patient notified through [employer]. Domonique Ojeda Ma documented in this encounter [facility] 11-26-2022 Miscellaneous Notes The following approved medication requests have been transmitted electronically. Requested Prescriptions Signed Prescriptions Disp Refills tirzepatide (MOUNJARO) 5 mg/0.5 mL pen injector 2 mL 1 Sig: Inject 5 mg subcutaneously one time a week. Michelle Woods APRN.CNP documented in this encounter [facility] 11-13-2022 Miscellaneous Notes PA completed and done on Mounjaro but was denied and not covered on insurance plan. Patient notified that he will need coupon card Domonique Ojeda Ma Please call patient and let him know that lab work looks good! Lipid panel is elevated but stable. Increasing exercise and green veggies and lean protein in diet will help this. Decrease fatty, fried foods and red meat. We discussed starting mounjaro for weight management. Rx sent t pharmacy. I recommend a follow-up visit in 1-2 months to reassess how this medication is working. Thank you, Michelle Woods APRN.CNP The following approved medication requests have been transmitted electronically. Requested Prescriptions Signed Prescriptions Disp Refills tirzepatide (MOUNJARO) 2.5 mg/0.5 mL pen injector 2 mL 1 Sig: Inject 2.5 mg subcutaneously one time a week. Authorizing Provider: MICHELLE WOODS APRN.CNP documented in this encounter [facility] 11-12-2022 History of Presen t illness Narrative Chief Complaint Patient presents with: BP Check: And weight loss med HPI Kvng Madsen is a 42 year old male who presents here today for Above Complaints. Kvng is an established patient of Dr. Gus MD. Kvng is a new patient to me today. Concerns today.. BP check --- Saw Dr. Angel on 09/01 for impacted cerumen removal. At appointment, BP was borderline elevated at 118/92. Was told to RTO for BP check. No current HTN dx or HTN medication regimen. He does have BP cuff at home if needed but does not check BP routinely. He denies chest pain, shortness of breath, palpitations, dizziness, leg edema, headaches, or vision changes. Last 14 Encounter BP Readings: Date: BP: 11/12/2022 110/78 09/01/2022 118/92 03/14/2022 130/88 01/23/2022 112/70 10/25/2021 120/70 09/24/2021 122/78 09/10/2021 120/82 06/24/2021 130/82 12/14/2020 116/74 10/29/2020 122/88 11/24/2019 112/80 11/22/2019 130/86 04/24/2019 120/82 04/10/2019 120/80 Weight management--- Asking about weight loss medication. Unable to loss any weight despite trying to eat healthy and exercise. is on Mounjaro currently prescribed by Dr. Washington for weight loss and having good results. Pt interested in starting this. Has been on adipex regimen in the past with good results. But would like a more long-term regimen vs the 3 months for adipex. OK with injections. Diet--- last month has been trying to eat healthy. Normally eats protein shake or oatmeal for breakfast and then a well balanced lunch and dinner. Has tried intermittent fasting but gets headache if he goes long periods without food so this did not work for him. 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 Fatigue --- Generalized fatigue and malaise. Feels unmotivated. On wellbutrin 150 mg and prozac 20 mg daily. Feels this regimen is working well. Does not think depression/mood are playing a role into generalized fatigue and exhaustion. No other concerns or complaints. Past medical history, appointments, medications, allergies reviewed. Previous Medical History PAST MEDICAL HISTORY Diagnosis Date NONE Previous Surgical History PAST SURGICAL HISTORY Procedure Laterality Date NONE Family History FAMILY HISTORY Problem Relation Age of Onset Cancer Paternal Grandfather stomach cancer Breast Cancer Other great aunt Patient Allergies ALLERGIES Allergen Reactions Imitrex [Sumatripta* Myalgia Current Medications Current Outpatient Medications on File Prior to Visit Medication Sig esomeprazole (NEXIUM) 20 mg capsule Take 1 capsule by mouth daily before breakfast. 1/2 hr before meal. montelukast (SINGULAIR) 10 mg tablet Take 1 tablet by mouth daily at bedtime. FLUoxetine (PROZAC) 20 mg capsule One pill by mouth daily. buPROPion SR (WELLBUTRIN SR) 150 mg 12 hr tablet Take 1 tablet by mouth twice daily. fluticasone (FLONASE) 50 mcg/actuation nasal spray Use 2 Sprays in each nostril once daily. Rinse mouth after use. Cholecalciferol, Vitamin D3, 50 mcg (2,000 unit) cap Take 1 capsule by mouth once daily. topiramate (TOPAMAX) 25 mg tablet Take 1 tablet by mouth twice daily. (Patient not taking: Reported on 11/12/2022) ubrogepant (UBRELVY) 50 mg tablet Take 1 tablet by mouth as needed. Take 1 tablet as needed for migraine. Can repeat in 2 hours if no relief. (Patient not taking: Reported on 11/12/2022) No current facility-administered medications on file prior to visit. Social History Social History Tobacco Use Smoking status: Never Smokeless tobacco: Former Quit date: 12/24/2011 Substance Use Topics Alcohol use: Yes Drug use: No REVIEW OF SYSTEMS: as above Reviewed relevant PMHx, PSHx, Social Hx, current medications and allergies. Review of Symptoms REVIEW OF SYSTEMS See HPI. All other systems are negative. EXAM: BP 110/78 (BP Site: Left Arm, BP Position: Sitting, BP Cuff Size: Large Adult) Pulse 72 Resp 12 Wt 102.9 kg (226 lb 12.8 oz) BMI 35.52 kg/m General Appearance: Well appearing, alert, in no acute distress, well-hydrated, well nourished.. Skin: Skin color, texture, turgor normal, no suspicious rashes or lesions. Head: Normocephalic, no masses, lesions, tenderness or abnormalities. Lungs: Lungs clear to auscultation. No wheezing, rhonchi, rales.. Heart: RRR without murmur, gallop, or rubs. No ectopy. Health Maintenance List HEPATITIS B(1 of 3 - 3-dose series) Never done DEPRESSION ASSESSMENT Never done HEPATITIS C SCREENING due on 01/23/2023 HIV SCREENING due on 01/23/2023 COVID-19 VACCINE(1) due on 01/23/2023 INFLUENZA(1) due on 05/22/2023 DTAP,TDAP,TD(1 - Tdap) due on 11/12/2023 LIPID SCREEN due on 11/22/2024 ASSESSMENT/PLAN: 1. Fatigue, unspecified type - ICD9: 780.79, ICD10: R53.83 (primary diagnosis) Rule out biological reason for fatigue with blood work as below. - DEPRESSION SCREENING/ASSESSMENT - COMP METABOLIC PANEL - CBC + DIFF - HGB A1C - LIPID PANEL BASIC - VITAMIN D 25 HYDROXY - VITAMIN B12 BLOOD - IRON + TIBC - FERRITIN BLD - TSH BLD 2. Elevated BP without diagnosis of hypertension - ICD9: 796.2, ICD10: R03.0 Only 1 reading prior as elevated. BP returns to normal. No concerns. Asymptomatic. Monitor at home with BP once per week --- discussed if elevated above >140/80 consistently to reach out to office. 3. Weight loss - ICD9: 783.21, ICD10: R63.4 If above blood work is normal -- we discussed starting on mounjaro regimen for weight management. Want baseline blood work prior due to last blood work in 2019. Pt agreeable to plan. - COMP METABOLIC PANEL - CBC + DIFF - HGB A1C RTO as needed. Prescription instructions reviewed with patient as applicable. Potential red flag symptoms discussed with the patient. Reviewed appropriate action plan to take if red flag symptoms occur. Patient agreeable to treatment plan. Michelle Woods APRN.EVENT MANAGER [address] [place] [address] documented in this encounter [facility] 10-13-2022 Miscellaneous Notes Last OV: 03/14/22 Next OV: N/A documented in this encounter [facility] 10-13-2022 Miscellaneous Notes Last OV: 03/14/22 Next OV: N/A documented in this encounter [facility] 09-02-2022 Miscellaneous Notes Spouse calling for refill. KRIS: 09/01/22 NOV: None scheduled Last Refill: 03/17/22 #60 5 refills Silvia Dawson LPN documented in this encounter [facility] 09-02-2022 Miscellaneous Notes Left detailed message on voicemail. Pt to contact office to schedule bp check or schedule through MyChart. Balbir Hernandez LPN Bp was up. I forgot to have him come back for bp check in one month documented in this encounter [facility] 09-01-2022 History of Presen t illness Narrative Ambulatory Ear Lavage Pre-treatment: Warm water Treatment: Both ears Equipment and Irrigation solution and Volume used: Single use syringe with single use irrigation tip Return flow appearance: Brown Patient tolerated procedure: yes Post-treatment: Post Irrigation Tympanic membrane assessed by LIP yes, Pre and Post Procedure Patient presents with: Ear Problem: Works in [employer] environment HPI: Patient presents today for office visit for acute visit. Has a hx of cerumen impaction. Discussed ear irrigation. No drainage. No fever or chills. No pain. Discussed using something like debrox prn as a preventative. MEDICATIONS: Current Outpatient Medications Medication Sig montelukast (SINGULAIR) 10 mg tablet Take 1 tablet by mouth daily at bedtime. FLUoxetine (PROZAC) 20 mg capsule One pill by mouth daily. buPROPion SR (WELLBUTRIN SR) 150 mg 12 hr tablet Take 1 tablet by mouth twice daily. esomeprazole (NEXIUM) 20 mg capsule Take 1 capsule by mouth daily before breakfast. 1/2 hr before meal. fluticasone (FLONASE) 50 mcg/actuation nasal spray Use 2 Sprays in each nostril once daily. Rinse mouth after use. Cholecalciferol, Vitamin D3, 50 mcg (2,000 unit) cap Take 1 capsule by mouth once daily. venlafaxine ER (EFFEXOR XR) 37.5 mg 24 hr capsule Take 1 capsule by mouth once daily. (Patient not taking: Reported on 09/01/2022) topiramate (TOPAMAX) 25 mg tablet Take 1 tablet by mouth twice daily. ubrogepant (UBRELVY) 50 mg tablet Take 1 tablet by mouth as needed. Take 1 tablet as needed for migraine. Can repeat in 2 hours if no relief. propranolol (INDERAL) 60 mg tablet Take 1 tablet by mouth once daily. No current facility-administered medications for this visit. ALLERGIES: ALLERGIES Allergen Reactions Imitrex [Sumatripta* Myalgia PAST MEDICAL HISTORY Diagnosis Date NONE PAST SURGICAL HISTORY Procedure Laterality Date NONE FAMILY HISTORY Problem Relation Age of Onset Cancer Paternal Grandfather stomach cancer Breast Cancer Other great aunt Social History Tobacco Use Smoking status: Never Smokeless tobacco: Former Quit date: 12/24/2011 Substance Use Topics Alcohol use: Yes Drug use: No Reviewed current medications, allergies, past medical history, surgical history, family history and social history today. REVIEW OF SYSTEMS All other reviewed and negative other than HPI. HEALTH MAINTENANCE: Reviewed health maintenance issues today and recommended the following in detail. HEPATITIS B(1 of 3 - 3-dose series) Never done DEPRESSION ASSESSMENT Never done VITALS: BP 118/92 Pulse 80 Wt 99.3 kg (219 lb) BMI 34.30 kg/m Last 4 Encounter Wt Readings: Date: Wt: 09/01/2022 99.3 kg (219 lb) 03/14/2022 100.2 kg (221 lb) 01/23/2022 100.7 kg (222 lb) 10/25/2021 105.8 kg (233 lb 3.2 oz) PHYSICAL EXAMINATION: General appearance: Well appearing, alert, in no acute distress, well-hydrated, well nourished. Skin: Skin color, texture, turgor normal, no suspicious rashes or lesions Head: Normocephalic, no masses, lesions, tenderness or abnormalities Ears: External ears normal, canals clear, bilateral cerumen, right greater than left. ASSESSMENT/PLAN: 1. Impacted cerumen of right ear - ICD9: 380.4, ICD10: H61.21 - irrigated by nursing. Tolerated well. Large amount of debis removed. Tm's clear after on re exam by myself. - REMOVAL OF IMPACTED CERUMEN - INSTRUMENTATION Aj Angel MD documented in this encounter [facility] 05-01-2022 Miscellaneous Notes Patient notified. Please let patient know to try an over the counter claritin or zyrtec as indicated on box in the morning and singulair in the evening to help alleviate current allergy symptoms. Do not take more than indicated on box. Please follow up if symptoms do not improve or worsen. Thank you Svetlana Ocasio APRN.GRISELDA Pt was is not taking anything for allergies (high pollen). Symptoms dry cough, itchy eyes and phlegm in throat. This has been going on for pt x 3 to 4 weeks. Denies any difficulty breathing, SOB or wheezing. Please advise recommendations for pt. Okay to leave a message Kayleigh Machado LPN documented in this encounter [facility] 05-01-2022 Miscellaneous Notes Spoke with pt and information listed below given. Pt verbalizes understanding. See phone encounter regarding allergies. Kayleigh Machado LPN Please let patient know this is the highest dose for this medication. Is he taking any over the counter allergy medicine? If not please open a telephone encounter to discuss this further Thank you Svetlana Ocasio APRN.GRISELDA Patient has been identified by name and date of : Yes Patient phones for refill(s): Pending Prescriptions Disp Refills MONTELUKAST 10 MG TABLET 30 tablet 2 Sig: Take 1 tablet by mouth daily at bedtime. MEHRAN: No Date of last office visit in primary care: 03/14/2022 Last 2 Encounter Wt Readings: Date: Wt: 03/14/2022 100.2 kg (221 lb) 01/23/2022 100.7 kg (222 lb) Previous labs/tests for medication: Not applicable Please advise. Thank you. Michelle Cantu LPN documented in this encounter [facility] 03-17-2022 Miscellaneous Notes Patient has been identified by name and date of : Yes Patient phones for refill(s): Pending Prescriptions Disp Refills BUPROPION HCL SR 150 MG TABLET,12 HR SUSTAINED-RELEASE 60 tablet 5 Sig: Take 1 tablet by mouth twice daily. MEHRAN: No Date of last office visit in primary care: 03/14/22 Last 2 Encounter Wt Readings: Date: Wt: 03/14/2022 100.2 kg (221 lb) 01/23/2022 100.7 kg (222 lb) Previous labs/tests for medication: Not applicable Please advise. Thank you. Michelle Cantu LPN documented in this encounter [facility] 03-14-2022 History of Presen t illness Narrative CC: Patient presents with: Recheck: 6 week follow up, headache anxiety HPI Kvng Madsen is a 41 year old male who presents today for follow up on headaches and anxiety. Patient had prozac increased for anxiety at last visit on the . Messaged on the and stated since increasing the prozac his headaches were much worse so switched to Effexor. Patient is currently on the 75mg daily of effexor with no change to headaches, and worsening of anxiety. Patient wants to retry the prozac. Has been getting regular massages to his neck which he feels is improving the headaches so his biggest concern today is the severe anxiety. is with patient and in agreement. Review of chronic headaches.Tension to top of head radiating to temples. Gets nausea No visual changes. Sensitivity to light and sound. Happens 3-4 times a week and lasts any were from all day. Has found that neck massages improves it. States the headaches are really no concern right now in comparison to anxiety not being controlled like it was on fluoxetine. 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 Suicidal Thoughts: No suicidal ideation, intent or plan Support: Comes from multiple sources including Counseling: No REVIEW OF SYSTEMS General: no fevers, no chills, no night sweats, no recurrent infections, no change in appetite, no change in energy and no significant changes in weight Respiratory: no cough, no wheezing, no shortness of breath, no hemoptysis Cardiovascular: no chest pain, no chest pressure, no palpitations and no swelling CP PHQ9 03/14/2022 Little interest or pleasure 2 - More than half the days Feeling down, depressed, hopeless 2 - More than half the days Trouble falling or staying asleep, sleeping too much 2 - More than half the days Feeling tired, having little energy 3 - Nearly every day Poor appetite or overeating 0 - Not at all Feeling bad about yourself, failure or you have let yourself/family down 0 - Not at all Trouble concentrating on things 3 - Nearly every day Moving or speaking so slowly, or fidgety or restless 0 - Not at all Thoughts that you would be better off , or of hurting yourself in some way 0 - Not at all How difficult have these problems made things Somewhat difficult Interpretation of Total Score 10-14 Moderate depression LISBETH-7 ANXIETY SCALE 03/14/2022 FEELING NERVOUS,ANXIOUS,OR ON EDGE 3 Nearly every day NOT BEING ABLE TO STOP OR CONTROL WORRYING 3 Nearly every day WORRYING TOO MUCH ABOUT DIFFERENT THINGS 3 Nearly every day TROUBLE RELAXING 3 Nearly every day BEING SO RESTLESS THAT IT'S HARD TO SIT STILL 3 Nearly every day BEING EASILY ANNOYED OR IRRITABLE 3 Nearly every day FEELING AFRAID IF SOMETHING AWFUL MIGHT HAPPEN 0 Not at all sure GAD7 SCORE 18 IF YOU CHECKED OFF ANY PROBLEMS Very difficult PAST MEDICAL HISTORY Diagnosis Date NONE PAST SURGICAL HISTORY Procedure Laterality Date NONE ALLERGIES Imitrex [Sumatriptan] MEDICATIONS venlafaxine ER (EFFEXOR XR) 37.5 mg 24 hr capsule Take 1 capsule by mouth once daily. topiramate (TOPAMAX) 25 mg tablet Take 1 tablet by mouth twice daily. buPROPion SR (WELLBUTRIN SR) 150 mg 12 hr tablet Take 1 tablet by mouth twice daily. ubrogepant (UBRELVY) 50 mg tablet Take 1 tablet by mouth as needed. Take 1 tablet as needed for migraine. Can repeat in 2 hours if no relief. esomeprazole (NEXIUM) 20 mg capsule Take 1 capsule by mouth daily before breakfast. 1/2 hr before meal. montelukast (SINGULAIR) 10 mg tablet Take 1 tablet by mouth daily at bedtime. propranolol (INDERAL) 60 mg tablet Take 1 tablet by mouth once daily. fluticasone (FLONASE) 50 mcg/actuation nasal spray Use 2 Sprays in each nostril once daily. Rinse mouth after use. Cholecalciferol, Vitamin D3, 50 mcg (2,000 unit) cap Take 1 capsule by mouth once daily. FAMILY HISTORY Problem Relation Age of Onset Cancer Paternal Grandfather stomach cancer Breast Cancer Other great aunt Social History Tobacco Use Smoking status: Never Smoker Smokeless tobacco: Former User Substance Use Topics Alcohol use: Yes Drug use: No PHYSICAL EXAM BP 130/88 Pulse 72 Resp 16 Wt 100.2 kg (221 lb) BMI 34.61 kg/m General Appearance: well appearing, in no acute distress, alert Pysch: mood and affect broad and appropriate. Patient visibly anxious and restless. Constantly moving leg, hand, or fingers Eyes: conjunctiva pink and moist, no icterus, sclera white, non-injected Lungs: Lungs clear to auscultation. No wheezing, rhonchi, rales. Heart: RRR without murmur, gallop, or rubs. No ectopy Health maintenance reviewed with patient: DTAP,TDAP,TD(1 - Tdap) due on 10/25/2022 ONE PNEUMOVAX PRIOR TO AGE 65 due on 01/23/2023 HEPATITIS C SCREENING due on 01/23/2023 HIV SCREENING due on 01/23/2023 COVID-19 VACCINE(1) due on 01/23/2023 INFLUENZA(Season Ended) due on 07/24/2022 DEPRESSION SCREENING due on 01/23/2023 LIPID SCREEN due on 11/22/2024 MENINGOCOCCAL CONJUGATE Aged Out DATA REVIEWED: No new labs ASSESSMENT/PLAN: 1. LISBETH (generalized anxiety disorder) - ICD9: 300.02, ICD10: F41.1 (primary diagnosis) - uncontrolled with current medication - Patient has prozac still from previous. Is going to stop effexor and restart prozac. Discussed with patient my concern with switching medications back and forth. Patient feels he realizes now that he can possibly control the headaches with massage - Message me next week with how you are doing. - follow up in office in 2 weeks. 2. Headaches - ICD9: 784.0, ICD10: R51.9 - continue with massage - follow up in 4 weeks - go to ER for worsening headaches, confusion, weakness, numbness, or difficulty speaking, or any other urgent concerns. I spent 30 minutes in the visit, with more than 50% of the total [id number]-wa-[id number] time of the visit in counseling / coordination of care. Prescription instructions reviewed with patient as applicable. Potential red flag symptoms discussed with the patient. Reviewed appropriate action plan to take if red flag symptoms occur. Patient agreeable to treatment plan. Svetlana Ocasio APRN.CNP documented in this encounter [facility] 03-07-2022 Miscellaneous Notes Patient notified. Please let patient know this was denied and we can discuss in further at follow up appointment. Thank you Svetlana Ocasio APRN.CNP ubrelvy was denied. CaseId:[id number];Status:Denied;Re view Type:Prior Auth;Appeal Information: Attention:ATTN: CLINICAL APPEALS DEPARTMENT [employer] [id number] [place] [phone] ; Important - Please read the below note on eAppeals: Please reference the denial letter for information on the rights for an appeal, rationale for the denial, and how to submit an appeal including if any information is needed to support the appeal. Note about urgent situations - Generally, an urgent situation is one which, in the opinion of the provider, the health of the patient may be in serious jeopardy or may experience pain that cannot be adequately controlled while waiting for a decision on the appeal.; Was able to complete PA vis covermymeds. Kvng Madsen (Donald: [id number]) Ubrelvy 50MG tablets Requested PA again with same response. Address with insurance is not updated. t has reviewed the my chart message. He says he will up date his insurance as the [place] address is correct. Sent PA again via covermymeds. And this is still not corrects. My chart message to pt to verify his address here and with his insurance. Pt needs to provide the office with correct address. We have [place]. insurance has [employer] ID. rec'd covermymeds PA for ubrely 50 mg. Unable to completed electronic PA. There was an error with your request ? Patient authentication failed. The patient's zip code and/or phone number provided do not match our records. Please update the request and resubmit via ePA. documented in this encounter [facility] 03-07-2022 Miscellaneous Notes Patient has been identified by name and date of : Yes Patient phones for refill(s): Pending Prescriptions Disp Refills VENLAFAXINE ER 37.5 MG CAPSULE,EXTENDED RELEASE 24 HR 30 capsule 1 Sig: Take 1 capsule by mouth once daily. MEHRAN: No Date of last office visit in primary care: 01/23/22 Last 2 Encounter Wt Readings: Date: Wt: 01/23/2022 100.7 kg (222 lb) 10/25/2021 105.8 kg (233 lb 3.2 oz) Previous labs/tests for medication: Not applicable Please advise. Thank you. Leila Amaya Ma documented in this encounter [facility] 11-08-2021 Miscellaneous Notes Phone call placed, advised ( see prior encounter) Patient verbalized understanding, agreed with plan of care, calling in to schedule later today. Tanika Machado LPN Please call patient and let him know I have placed order for CT chest for his lung nodule. Will need to have his blood drawn prior to check kidney function. Please assist in scheduling. Luz Gavin APRN.CNP documented in this encounter [facility] 09-10-2021 History of Presen t illness Narrative Radiology Service Progress Note PATIENT NAME: Kvng Madsen DATE OF SERVICE: September 10, 2021 TIME: 12:48 PM PATIENT IDENTITY VERIFICATION COMPLETED USING TWO (2) IDENTIFIERS: Name and Date of confirmed by patient verbally. FALL SCREENING: Has the patient had 2 falls in the last year or 1 fall with injury or currently using an Ambulatory Assistive Device (Walker, Cane, Wheelchair, Crutches, etc.)? No PATIENT GENDER DATA: Male PATIENT RELEVANT IMPLANT DATA REVIEWED: Yes RADIOLOGY DEPARTMENT: General X-ray: Exam(s) Completed: Chest X-Ray PERIPHERAL IV DATA: Not applicable SIGNED BY: RT Charmaine(R) September 10, 2021 12:48 PM documented in this encounter [facility] 06-24-2021 History of Presen t illness Narrative Radiology Service Progress Note PATIENT NAME: Kvng Madsen DATE OF SERVICE: June 24, 2021 TIME: 3:12 PM PATIENT IDENTITY VERIFICATION COMPLETED USING TWO (2) IDENTIFIERS: Name and Date of confirmed by patient verbally. FALL SCREENING: Has the patient had 2 falls in the last year or 1 fall with injury or currently using an Ambulatory Assistive Device (Walker, Cane, Wheelchair, Crutches, etc.)? No PATIENT GENDER DATA: Male PATIENT RELEVANT IMPLANT DATA REVIEWED: Not Applicable RADIOLOGY DEPARTMENT: General X-ray: Exam(s) Completed: Upper Extremity X-Ray(s): Elbow, right PERIPHERAL IV DATA: Not applicable SIGNED BY: RT Antonietta(R) June 24, 2021 3:12 PM documented in this encounter [facility] Evaluation note Diagnosis LISBETH (generalized anxiety disorder)- Primary Generalized anxiety disorder Headaches [facility] LISBETH (generalized anxiety disorder) Generalized anxiety disorder [facility] Lung nodules Other nonspecific abnormal finding of lung field [facility] Diagnosis Impacted cerumen of right ear- Primary Impacted cerumen [facility] Diagnosis LISBETH (generalized anxiety disorder) Generalized anxiety disorder [facility] Diagnosis LISBETH (generalized anxiety disorder) Generalized anxiety disorder [facility] Diagnosis Fatigue, unspecified type- Primary Elevated BP without diagnosis of hypertension Weight loss Loss of weight [facility] Diagnosis LISBETH (generalized anxiety disorder) Generalized anxiety disorder [facility] Diagnosis LISBETH (generalized anxiety disorder)- Primary Generalized anxiety disorder [facility] Diagnosis LISBETH (generalized anxiety disorder) Generalized anxiety disorder [facility] Diagnosis LISBETH (generalized anxiety disorder) Generalized anxiety disorder [facility] Diagnosis LISBETH (generalized anxiety disorder) Generalized anxiety disorder Gastroesophageal reflux disease with esophagitis, unspecified whether hemorrhage [facility] Diagnosis LISEBTH (generalized anxiety disorder) Generalized anxiety disorder [facility] Diagnosis Ganglion cyst of wrist- Primary Ganglion of joint GERD (gastroesophageal reflux disease) Esophageal reflux Routine health maintenance Routine general medical examination at a health care facility Annual physical exam Routine general medical examination at a health care facility Migraine headaches- Primary [facility] Diagnosis Ganglion cyst of wrist- Primary Ganglion of joint GERD (gastroesophageal reflux disease) Esophageal reflux Routine health maintenance Routine general medical examination at a health care facility Annual physical exam Routine general medical examination at a health care facility Suspected COVID-19 virus infection Exposure to confirmed case of COVID-19 [facility] Diagnosis Ganglion cyst of wrist- Primary Ganglion of joint GERD (gastroesophageal reflux disease) Esophageal reflux Routine health maintenance Routine general medical examination at a health care facility Annual physical exam Routine general medical examination at a health care facility Migraine headaches- Primary Other fatigue [facility] Diagnosis Ganglion cyst of wrist- Primary Ganglion of joint GERD (gastroesophageal reflux disease) Esophageal reflux Routine health maintenance Routine general medical examination at a health care facility Annual physical exam Routine general medical examination at a health care facility Right elbow pain Pain in joint, upper arm [facility] Diagnosis Ganglion cyst of wrist- Primary Ganglion of joint GERD (gastroesophageal reflux disease) Esophageal reflux Routine health maintenance Routine general medical examination at a health care facility Annual physical exam Routine general medical examination at a health care facility CISCO (obstructive sleep apnea)- Primary Obstructive sleep apnea (adult) (pediatric) [facility] Diagnosis Ganglion cyst of wrist- Primary Ganglion of joint GERD (gastroesophageal reflux disease) Esophageal reflux Routine health maintenance Routine general medical examination at a health care facility Annual physical exam Routine general medical examination at a health care facility LISBETH (generalized anxiety disorder)- Primary Generalized anxiety disorder [facility] Diagnosis Ganglion cyst of wrist- Primary Ganglion of joint GERD (gastroesophageal reflux disease) Esophageal reflux Routine health maintenance Routine general medical examination at a health care facility Annual physical exam Routine general medical examination at a health care facility Gastroesophageal reflux disease with esophagitis, unspecified whether hemorrhage [facility] Diagnosis Ganglion cyst of wrist- Primary Ganglion of joint GERD (gastroesophageal reflux disease) Esophageal reflux Routine health maintenance Routine general medical examination at a health care facility Annual physical exam Routine general medical examination at a health care facility Encounter for wellness examination in adult- Primary Hyperlipidemia, unspecified hyperlipidemia type LISBETH (generalized anxiety disorder) Generalized anxiety disorder Gastroesophageal reflux disease with esophagitis, unspecified whether hemorrhage Migraine headaches Screening for depression [facility] Diagnosis Ganglion cyst of wrist- Primary Ganglion of joint GERD (gastroesophageal reflux disease) Esophageal reflux Routine health maintenance Routine general medical examination at a health care facility Annual physical exam Routine general medical examination at a health care facility Migraine headaches [facility] Diagnosis Ganglion cyst of wrist- Primary Ganglion of joint GERD (gastroesophageal reflux disease) Esophageal reflux Routine health maintenance Routine general medical examination at a health care facility Annual physical exam Routine general medical examination at a health care facility Migraine headaches documented in this encounter [facility] for referral (narrative)* Diagnostic Procedure Only (Routine) - New Request Specialty Diagnoses / Procedures Referred By Vaishali wong Referred To Contact NEUROLOGICAL [facility] Diagnoses Other fatigue Procedures HOME SLEEP APNEA TEST (HSAT) SLEEP STD AIRFLOW HRT RATE&O2 SAT EFFORT Allegra Yepez, MARYANNE.EVENT MANAGER [address] [place] [address] [facility] [address] [place] [address] Referral ID Status Reason Start Date Expiration Date Visits Requested Visits Authorized [id number] New Request Auto-Generat ed Referral 08/23/2024 08/23/2025 1 1 [facility] for referral (narrative)* Diagnostic Procedure Only (Routine) - Closed Specialty Diagnoses / Procedures Referred By Contac t Referred To Contact XR IMAGING Diagnoses Right elbow pain Procedures XR ELBOW GENERAL 2V AP/LAT RT X-RAY ELBOW AP/LATERAL Maya Roth HIGH RIGGER.EVENT MANAGER [address] [place] [address] [place] [address] Referral ID Status Reason Start Date Expiration Date V isits Requested Visits Authorized [id number] Closed Auto-Generate d Referral 06/24/2021 07/24/2022 1 1 [facility] for visit Narrative* Diagnostic Procedure Only (Routine) - Closed Specialty Diagnoses / Procedures Referred By Contac t Referred To Contact XR IMAGING Diagnoses Right elbow pain Procedures XR ELBOW GENERAL 2V AP/LAT RT X-RAY ELBOW AP/LATERAL Maya Roth HIGH RIGGER.EVENT MANAGER [address] [place] [address] [place] [address] Referral ID Status Reason Start Date Expiration Date V isits Requested Visits Authorized [id number] Closed Auto-Generate d Referral 06/24/2021 07/24/2022 1 1 [facility] Summary Purpose Family History No Family History Records FoundNo Family History Records FoundNo Family History Records FoundNo Family History Records Found Advance Directives No Advanced Directives Records FoundNo Advanced Directives Records FoundNo Advanced Directives Records FoundNo Advanced Directives Records Found Reason for Referral Specialty Diagnoses / Procedures Referred By Contac t Referred To Contact CT IMAGING Diagnoses Lung nodules Procedures CT CHEST W IVCON CAT SCAN OF CHEST CONTRAST PodlogarLuz HIGH RIGGER.EVENT MANAGER [address] [place] [address] Ct Imaging Referral ID Status Reason Start Date Expiration Date V isits Requested Visits Authorized [id number] Closed Auto-Generate d Referral 11/08/2021 12/23/2021 1 1 Specialty Diagnoses / Procedures Referred By Contac t Referred To Contact Michelle Woods, HIGH RIGGER.EVENT MANAGER [address] [place] [address] Referral ID Status Reason Start Date Expiration Date Visits Re quested Visits Authorized [id number] Denied 1 1 Specialty Diagnoses / Procedures Referred By Contac t Referred To Contact Michelle Antony, HIGH RIGGER.EVENT MANAGER [address] [place] [address] Referral ID Status Reason Start Date Expiration Date Visits Re quested Visits Authorized [id number] Denied 1 1 Referral ID Status Reason Start Date Expiration Date Visits Re quested Visits Authorized [id number] Denied 1 1 Specialty Diagnoses / Procedures Referred By Contac t Referred To Contact Neurology Diagnoses Migraine headaches Procedures CONSULT TO NEUROLOGY OFFICE/OUTPATIENT [facility] 60 MINUTES Hao Washington, DO [address] [place] [address] Referral ID Status Reason Start Date Expiration Date Visits Requested Visits Authorized [id number] Authorized PCP Requested Referral 08/05/2024 08/05/2025 1 1 Specialty Diagnoses / Procedures Referred By Contac t Referred To Contact Diagnoses CISCO (obstructive sleep apnea) Procedures CONSULT TO SLEEP MEDICINE - ADULT OFFICE/OUTPATIENT [facility] 60 MINUTES Allegra Blackman HIGH RIGGER.EVENT MANAGER [address] [place] [address] Referral ID Status Reason Start Date Expiration Date Visits Requested Visits Authorized [id number] Authorized PCP Requested Referral 09/26/2024 09/26/2025 1 1 Specialty Diagnoses / Procedures Referred By Contac t Referred To Contact Diagnoses Gastroesophageal reflux disease with esophagitis, unspecified whether hemorrhage Hao Washington, DO [address] [place] [address] Referral ID Status Reason Start Date Expiration Date V isits Requested Visits Authorized [id number] Authorized 10/31/2024 11/30/2025 1 1 Additional Source Comments (unrecognized sect ion and content) No Status Records FoundNo Status Records FoundNo Status Records FoundNo Status Records Found INFORMATION SOURCE (unrecogn ized section and content) DATE CREATED AUTHOR 11/19/2019 [facility] DATE CREATED AUTHOR AUTHOR'S ORGANIZ ATION 11/22/2019 [facility] DATE CREATED AUTHOR AUTHOR'S ORGANIZ ATION 12/01/2019 [facility] DATE CREATED AUTHOR AUTHOR'S ORGANIZ ATION 01/18/2025 [facility] Source Comments (unrecognize d section and content) In the event this informatio n is protected by the Federal Confidentiality of Alcohol and Drug Abuse Patient Records regulations: The Federal rules restrict any use of the information to criminally investigate or prosecute any alcohol or drug abuse patient.[facility] the event this information is protected by the Federal Confidentiality of Alcohol and Drug Abuse Patient Records regulations: The Federal rules restrict any use of the information to criminally investigate or prosecute any alcohol or drug abuse patient.[facility] the event this information is protected by the Federal Confidentiality of Alcohol and Drug Abuse Patient Records regulations: The Federal rules restrict any use of the information to criminally investigate or prosecute any alcohol or drug abuse patient.[facility] the event this information is protected by the Federal Confidentiality of Alcohol and Drug Abuse Patient Records regulations: The Federal rules restrict any use of the information to criminally investigate or prosecute any alcohol or drug abuse patient.[facility] the event this information is protected by the Federal Confidentiality of Alcohol and Drug Abuse Patient Records regulations: The Federal rules restrict any use of the information to criminally investigate or prosecute any alcohol or drug abuse patient.[facility] the event this information is protected by the Federal Confidentiality of Alcohol and Drug Abuse Patient Records regulations: The Federal rules restrict any use of the information to criminally investigate or prosecute any alcohol or drug abuse patient.[facility] the event this information is protected by the Federal Confidentiality of Alcohol and Drug Abuse Patient Records regulations: The Federal rules restrict any use of the information to criminally investigate or prosecute any alcohol or drug abuse patient.[facility] Hospital[facility] the event this information is protected by the Federal Confidentiality of Alcohol and Drug Abuse Patient Records regulations: The Federal rules restrict any use of the information to criminally investigate or prosecute any alcohol or drug abuse patient.[facility] the event this information is protected by the Federal Confidentiality of Alcohol and Drug Abuse Patient Records regulations: The Federal rules restrict any use of the information to criminally investigate or prosecute any alcohol or drug abuse patient.[facility] the event this information is protected by the Federal Confidentiality of Alcohol and Drug Abuse Patient Records regulations: The Federal rules restrict any use of the information to criminally investigate or prosecute any alcohol or drug abuse patient.[facility] the event this information is protected by the Federal Confidentiality of Alcohol and Drug Abuse Patient Records regulations: The Federal rules restrict any use of the information to criminally investigate or prosecute any alcohol or drug abuse patient.[facility] the event this information is protected by the Federal Confidentiality of Alcohol and Drug Abuse Patient Records regulations: The Federal rules restrict any use of the information to criminally investigate or prosecute any alcohol or drug abuse patient.[facility] Hospital[facility] the event this information is protected by the Federal Confidentiality of Alcohol and Drug Abuse Patient Records regulations: The Federal rules restrict any use of the information to criminally investigate or prosecute any alcohol or drug abuse patient.[facility] Hospital[facility] the event this information is protected by the Federal Confidentiality of Alcohol and Drug Abuse Patient Records regulations: The Federal rules restrict any use of the information to criminally investigate or prosecute any alcohol or drug abuse patient.[facility] Hospital[facility] the event this information is protected by the Federal Confidentiality of Alcohol and Drug Abuse Patient Records regulations: The Federal rules restrict any use of the information to criminally investigate or prosecute any alcohol or drug abuse patient.[facility] Hospital[facility] the event this information is protected by the Federal Confidentiality of Alcohol and Drug Abuse Patient Records regulations: The Federal rules restrict any use of the information to criminally investigate or prosecute any alcohol or drug abuse patient.[facility] Hospital[facility] the event this information is protected by the Federal Confidentiality of Alcohol and Drug Abuse Patient Records regulations: The Federal rules restrict any use of the information to criminally investigate or prosecute any alcohol or drug abuse patient.[facility] HospitalIn the event this information is protected by the Federal Confidentiality of Alcohol and Drug Abuse Patient Records regulations: The Federal rules restrict any use of the information to criminally investigate or prosecute any alcohol or drug abuse patient.[facility] Hospital[facility] the event this information is protected by the Federal Confidentiality of Alcohol and Drug Abuse Patient Records regulations: The Federal rules restrict any use of the information to criminally investigate or prosecute any alcohol or drug abuse patient.[facility] HospitalIn the event this information is protected by the Federal Confidentiality of Alcohol and Drug Abuse Patient Records regulations: The Federal rules restrict any use of the information to criminally investigate or prosecute any alcohol or drug abuse patient.[facility] HospitalIn the event this information is protected by the Federal Confidentiality of Alcohol and Drug Abuse Patient Records regulations: The Federal rules restrict any use of the information to criminally investigate or prosecute any alcohol or drug abuse patient.[facility] HospitalIn the event this information is protected by the Federal Confidentiality of Alcohol and Drug Abuse Patient Records regulations: The Federal rules restrict any use of the information to criminally investigate or prosecute any alcohol or drug abuse patient.[facility] Hospital[facility] the event this information is protected by the Federal Confidentiality of Alcohol and Drug Abuse Patient Records regulations: The Federal rules restrict any use of the information to criminally investigate or prosecute any alcohol or drug abuse patient.[facility] HospitalIn the event this information is protected by the Federal Confidentiality of Alcohol and Drug Abuse Patient Records regulations: The Federal rules restrict any use of the information to criminally investigate or prosecute any alcohol or drug abuse patient.[facility] HospitalIn the event this information is protected by the Federal Confidentiality of Alcohol and Drug Abuse Patient Records regulations: The Federal rules restrict any use of the information to criminally investigate or prosecute any alcohol or drug abuse patient.[facility] HospitalIn the event this information is protected by the Federal Confidentiality of Alcohol and Drug Abuse Patient Records regulations: The Federal rules restrict any use of the information to criminally investigate or prosecute any alcohol or drug abuse patient.[facility] HospitalIn the event this information is protected by the Federal Confidentiality of Alcohol and Drug Abuse Patient Records regulations: The Federal rules restrict any use of the information to criminally investigate or prosecute any alcohol or drug abuse patient.[facility] HospitalIn the event this information is protected by the Federal Confidentiality of Alcohol and Drug Abuse Patient Records regulations: The Federal rules restrict any use of the information to criminally investigate or prosecute any alcohol or drug abuse patient.[facility] HospitalIn the event this information is protected by the Federal Confidentiality of Alcohol and Drug Abuse Patient Records regulations: The Federal rules restrict any use of the information to criminally investigate or prosecute any alcohol or drug abuse patient.[facility] HospitalIn the event this information is protected by the Federal Confidentiality of Alcohol and Drug Abuse Patient Records regulations: The Federal rules restrict any use of the information to criminally investigate or prosecute any alcohol or drug abuse patient.[facility] HospitalIn the event this information is protected by the Federal Confidentiality of Alcohol and Drug Abuse Patient Records regulations: The Federal rules restrict any use of the information to criminally investigate or prosecute any alcohol or drug abuse patient.[facility] HospitalIn the event this information is protected by the Federal Confidentiality of Alcohol and Drug Abuse Patient Records regulations: The Federal rules restrict any use of the information to criminally investigate or prosecute any alcohol or drug abuse patient.[facility] HospitalIn the event this information is protected by the Federal Confidentiality of Alcohol and Drug Abuse Patient Records regulations: The Federal rules restrict any use of the information to criminally investigate or prosecute any alcohol or drug abuse patient.[facility] HospitalIn the event this information is protected by the Federal Confidentiality of Alcohol and Drug Abuse Patient Records regulations: The Federal rules restrict any use of the information to criminally investigate or prosecute any alcohol or drug abuse patient.[facility] HospitalIn the event this information is protected by the Federal Confidentiality of Alcohol and Drug Abuse Patient Records regulations: The Federal rules restrict any use of the information to criminally investigate or prosecute any alcohol or drug abuse patient.[facility] HospitalIn the event this information is protected by the Federal Confidentiality of Alcohol and Drug Abuse Patient Records regulations: The Federal rules restrict any use of the information to criminally investigate or prosecute any alcohol or drug abuse patient.[facility] HospitalIn the event this information is protected by the Federal Confidentiality of Alcohol and Drug Abuse Patient Records regulations: The Federal rules restrict any use of the information to criminally investigate or prosecute any alcohol or drug abuse patient.[facility] HospitalIn the event this information is protected by the Federal Confidentiality of Alcohol and Drug Abuse Patient Records regulations: The Federal rules restrict any use of the information to criminally investigate or prosecute any alcohol or drug abuse patient.[facility] HospitalIn the event this information is protected by the Federal Confidentiality of Alcohol and Drug Abuse Patient Records regulations: The Federal rules restrict any use of the information to criminally investigate or prosecute any alcohol or drug abuse patient.[facility] HospitalIn the event this information is protected by the Federal Confidentiality of Alcohol and Drug Abuse Patient Records regulations: The Federal rules restrict any use of the information to criminally investigate or prosecute any alcohol or drug abuse patient.[facility] HospitalIn the event this information is protected by the Federal Confidentiality of Alcohol and Drug Abuse Patient Records regulations: The Federal rules restrict any use of the information to criminally investigate or prosecute any alcohol or drug abuse patient.[facility] HospitalIn the event this information is protected by the Federal Confidentiality of Alcohol and Drug Abuse Patient Records regulations: The Federal rules restrict any use of the information to criminally investigate or prosecute any alcohol or drug abuse patient.[facility] HospitalIn the event this information is protected by the Federal Confidentiality of Alcohol and Drug Abuse Patient Records regulations: The Federal rules restrict any use of the information to criminally investigate or prosecute any alcohol or drug abuse patient.[facility] HospitalIn the event this information is protected by the Federal Confidentiality of Alcohol and Drug Abuse Patient Records regulations: The Federal rules restrict any use of the information to criminally investigate or prosecute any alcohol or drug abuse patient.[facility] HospitalIn the event this information is protected by the Federal Confidentiality of Alcohol and Drug Abuse Patient Records regulations: The Federal rules restrict any use of the information to criminally investigate or prosecute any alcohol or drug abuse patient.[facility] HospitalIn the event this information is protected by the Federal Confidentiality of Alcohol and Drug Abuse Patient Records regulations: The Federal rules restrict any use of the information to criminally investigate or prosecute any alcohol or drug abuse patient.[facility] HospitalIn the event this information is protected by the Federal Confidentiality of Alcohol and Drug Abuse Patient Records regulations: The Federal rules restrict any use of the information to criminally investigate or prosecute any alcohol or drug abuse patient.[facility] HospitalIn the event this information is protected by the Federal Confidentiality of Alcohol and Drug Abuse Patient Records regulations: The Federal rules restrict any use of the information to criminally investigate or prosecute any alcohol or drug abuse patient.[facility] HospitalIn the event this information is protected by the Federal Confidentiality of Alcohol and Drug Abuse Patient Records regulations: The Federal rules restrict any use of the information to criminally investigate or prosecute any alcohol or drug abuse patient.[facility] HospitalIn the event this information is protected by the Federal Confidentiality of Alcohol and Drug Abuse Patient Records regulations: The Federal rules restrict any use of the information to criminally investigate or prosecute any alcohol or drug abuse patient.[facility] HospitalIn the event this information is protected by the Federal Confidentiality of Alcohol and Drug Abuse Patient Records regulations: The Federal rules restrict any use of the information to criminally investigate or prosecute any alcohol or drug abuse patient.[facility] HospitalIn the event this information is protected by the Federal Confidentiality of Alcohol and Drug Abuse Patient Records regulations: The Federal rules restrict any use of the information to criminally investigate or prosecute any alcohol or drug abuse patient.[facility] Care Teams (unrecognized sec tion and content) Hris Manager Relationship Specialty Start Date End Date Lesli Weber MD [address] [place] [address] PCP - General Internal Medicine 11/09/14 Hris Manager Relationship Specialty Start Date End Date Lesli Weber MD [address] [place], [place] [id number] PCP - General Internal Medicine 11/09/14 Hris Manager Relationship Specialty Start Date End Date eLsli Weber MD [address] [place] [address] PCP - General Internal Medicine 11/09/14 Hris Manager Relationship Specialty Start Date End Date Lesli Weber MD [address] [facility] [place] [address] PCP - General Internal Medicine 11/09/14 Hris Manager Relationship Specialty Start Date End Date Lesli Weber MD [address] [facility] [place] [address] PCP - General Internal Medicine 11/09/14 Hris Manager Relationship Specialty Start Date End Date Lesli Weber MD [address] [facility] [place] [address] PCP - General Internal Medicine 11/09/14 Hris Manager Relationship Specialty Start Date End Date Lesli Weber MD [address] [facility] [place] [address] PCP - General Internal Medicine 11/09/14 Hris Manager Relationship Specialty Start Date End Date Lesli Weber MD [address] [facility] [place] [address] PCP - General Internal Medicine 11/09/14 Hris Manager Relationship Specialty Start Date End Date Lesli Weber MD [address] [facility] [place] [address] PCP - General Internal Medicine 11/09/14 Hris Manager Relationship Specialty Start Date End Date Lesli Weber MD [address] [facility] [place] [address] PCP - General Internal Medicine 11/09/14 Hris Manager Relationship Specialty Start Date End Date Lesli Weber MD [address] [facility] [place] [address] PCP - General Internal Medicine 11/09/14 Hris Manager Relationship Specialty Start Date End Date Lesli Wbeer MD [address] [facility] [place] [address] PCP - General Internal Medicine 11/09/14 Hris Manager Relationship Specialty Start Date End Date Lesli Weber MD [address] [facility] [place] [address] PCP - General Internal Medicine 11/09/14 Hris Manager Relationship Specialty Start Date End Date Lesli Weber MD [address] [facility] [place] [address] PCP - General Internal Medicine 11/09/14 Hris Manager Relationship Specialty Start Date End Date Lesli Weber MD [address] [facility] [place] [address] PCP - General Internal Medicine 11/09/14 Hris Manager Relationship Specialty Start Date End Date Lesli Weber MD [address] [facility] [place] [address] PCP - General Internal Medicine 11/09/14 Hris Manager Relationship Specialty Start Date End Date Hao Washington DO [address] [facility] [place] [address] PCP - General Family Medicine 02/16/23 Hris Manager Relationship Specialty Start Date End Date Hao Washington DO [address] [facility] [place] [address] PCP - General Family Medicine 02/16/23 Hris Manager Relationship Specialty Start Date End Date Hao Washington DO [address] [facility] [place] [address] PCP - General Family Medicine 02/16/23 Hris Manager Relationship Specialty Start Date End Date Hao Washington DO [address] [facility] [place] [address] PCP - General Family Medicine 02/16/23 Hris Manager Relationship Specialty Start Date End Date Hao Washington DO [address] [facility] [place] [address] PCP - General Family Medicine 02/16/23 Hris Manager Relationship Specialty Start Date End Date Hao Washington, [address] [facility] [place] [address] PCP - General Family Medicine 02/16/23 Hris Manager Relationship Specialty Start Date End Date Hao Washington DO [address] [facility] [place] [address] PCP - General Family Medicine 02/16/23 Hris Manager Relationship Specialty Start Date End Date Hao Washington DO [address] [facility] [place] [address] PCP - General Family Medicine 02/16/23 Hris Manager Relationship Specialty Start Date End Date Hao Washington DO [address] [facility] [place] [address] PCP - General Family Medicine 02/16/23 Hris Manager Relationship Specialty Start Date End Date Hao Washington, DO [address] [facility] [place] [address] PCP - General Family Medicine 02/16/23 Hris Manager Relationship Specialty Start Date End Date Lesli Weber MD [address] [facility] [place] [address] PCP - General Internal Medicine 11/09/14 02/15/23 Hris Manager Relationship Specialty Start Date End Date Hao Washington, DO [address] [facility] [place] [address] PCP - General Family Medicine 02/16/23 Hris Manager Relationship Specialty Start Date End Date Lesli Weber MD [address] [facility] [place] [address] PCP - General Internal Medicine 11/09/14 02/15/23 Hris Manager Relationship Specialty Start Date End Date Hao Washington DO [address] [facility] [place] [address] PCP - General Family Medicine 02/16/23 Hris Manager Relationship Specialty Start Date End Date Hao Washington DO [address] [facility] [place] [place] [address] PCP - General Family Medicine 02/16/23 Hris Manager Relationship Specialty Start Date End Date Hao Washington DO [address] [facility] [place] [address] PCP - General Family Medicine 02/16/23 Hris Manager Relationship Specialty Start Date End Date Hao Washington DO [address] [facility] [place] [address] PCP - General Family Medicine 02/16/23 Hris Manager Relationship Specialty Start Date End Date Hao Washington DO [address] [facility] [place] [address] PCP - General Family Medicine 02/16/23 Hris Manager Relationship Specialty Start Date End Date Hao Washington DO [address] [facility] [place] [address] PCP - General Family Medicine 02/16/23 Michelle Antony APRN.EVENT MANAGER [address] [facility] [place] [address] [employer] [facility] 10/30/24 April Meraz, HIGH RIGGER.EVENT MANAGER [address] [facility] [place] [address] [facility] 10/30/24 Hris Manager Relationship Specialty Start Date End Date Hao Washington DO [address] [facility] [place] [address] PCP - General Family Medicine 02/16/23 Michelle Antony, HIGH RIGGER.EVENT MANAGER [address] [facility] [place] [address] [facility] 10/30/24 April Meraz, HIGH RIGGER.EVENT MANAGER [address] [facility] [place] [address] [facility] 10/30/24 Hris Manager Relationship Specialty Start Date End Date Hao Washington DO [address] [facility] [place] [address] PCP - General Family Medicine 02/16/23 Michelle Antony, HIGH RIGGER.EVENT MANAGER [address] [facility] [place] [address] [facility] 10/30/24 April Meraz, HIGH RIGGER.EVENT MANAGER [address] [facility] [place] [address] [facility] 10/30/24 Hris Manager Relationship Specialty Start Date End Date Hao Washington DO [address] [facility] [place] [address] PCP - General Family Medicine 02/16/23 Michelle Antony, HIGH RIGGER.EVENT MANAGER [address] [facility] [place] [address] [facility] KtApril, HIGH RIGGER.EVENT MANAGER [address] [facility] [place] [address] [facility] Hris Manager Relationship Specialty Start Date End Date Hao Washington DO [address] [facility] [place] [address] PCP - General Family Medicine 02/16/23 Michelle Antony, HIGH RIGGER.EVENT MANAGER [address] [facility] [place] [address] [facility] 10/30/24 KtApril, HIGH RIGGER.EVENT MANAGER [address] [facility] [place] [address] [facility] 10/30/24 Hris Manager Relationship Specialty Start Date End Date Hao Washington DO [address] [facility] [place] [address] PCP - General Family Medicine 02/16/23 KtApril, HIGH RIGGER.EVENT MANAGER [address] [facility] [place] [address] [facility] 10/30/24 Hris Manager Relationship Specialty Start Date End Date Hao Washington DO [address] [facility] [place] [address] PCP - General Family Medicine 02/16/23 April Meraz, HIGH RIGGER.EVENT MANAGER [address] [place], [place] [address] [facility] 10/30/24 Cammie Amin, HIGH RIGGER.EVENT MANAGER [address] [place], [place] [address] [facility] 05/08/25 Reason for Visit (unrecogniz ed section and content) Reason Onset Date Comments Refill Request 03/06/2022 Reason Comments Insurance Authorization Reason Comments Recheck 6 week follow up, he adache anxiety Reason Onset Date Comments Refill Request 03/17/2022 Reason Comments Appointment Patient Update Reason Onset Date Comments Refill Request 04/30/2022 Reason Comments requesting medication Reason Comments Ear Problem Works in [place] [facility] Reason Comments Patient Update Reason Onset Date Comments Refill Request 09/02/2022 Reason Onset Date Comments Refill Request 10/12/2022 Reason Comments BP Check And weight loss med Reason Comments Results Reason Comments Insurance Authorization [employer] Reason Comments Opened In Error Reason Onset Date Comments Refill Request 12/22/2022 Reason Onset Date Comments Refill Request 01/11/2023 Reason Onset Date Comments Refill Request 03/04/2023 Reason Onset Date Comments Refill Request 03/11/2023 Reason Comments Results Reason Comments Follow Up Reason Onset Date Comments Refill Request 06/11/2023 Reason Onset Date Comments Refill Request 05/29/2023 Refill Request 07/13/2023 Reason Onset Date Comments Refill Request Refill Request 07/13/2023 Reason Onset Date Comments Refill Request 07/13/2023 Reason Onset Date Comments Refill Request 08/28/2023 Reason Onset Date Comments Refill Request 05/03/2024 Reason Onset Date Comments Refill Request 06/21/2024 Reason Comments Patient Question Migraine/Headache Reason Comments New Patient Consult Specialty Diagnoses / Procedures Referred By Vaishali wong Referred To Contact Neurology Diagnoses Migraine headaches Procedures CONSULT TO NEUROLOGY OFFICE/OUTPATIENT NEW HIGH MDM 60 MINUTES Hao Washington DO [address] [place] [address] Referral ID Status Reason Start Date Expiration Date V isits Requested Visits Authorized [id number] Closed PCP Requested Referral 08/05/2024 08/05/2025 1 1 Reason Onset Date Comments Refill Request 09/03/2024 Reason Comments Refill Request Reason Onset Date Comments Refill Request 11/30/2024 Reason Comments Physical Reason Onset Date Comments Refill Request 03/30/2025 FOR RECORDS PERTAINING TO PATIENTS WHO ARE OR HAVE BEEN ENROLLED IN A CHEMICAL DEPENDENCY/SUBSTANCEABUSE PROGRAM, SOME INFORMATION MAY BE OMITTED. This clinical summary was aggregated from multiple sources. Caution should be exercised in using it in the provision of clinical care. This summary normalizes information from multiple sources, and as a consequence, information in this document may materially change the coding, format and clinical context of patient data. In addition, data may be omitted in some cases. CLINICAL DECISIONS SHOULD BE BASED ON THE PRIMARY CLINICAL RECORDS. [facility]. provides no warranty or guarantee of the accuracy or completeness of information in this document.
== END | disposition home or self-care (01) ==
PROVIDERS: PCP Student in an Organized Health Care Education/Training Program; Referring Provider Physician Assistant; Visit Provider Physician Assistant
DX: M25.522 Pain in left elbow (principal)
CPT/HCPCS: 73080